=== PATIENT | female | born 1985 | race Caucasian/White ===

== ENCOUNTER 2020-10-11 10:46 | Emergency (ER) | payer SELFPAY ==
[2020-10-11 10:47] VITALS: BP 165/96; PULSE 104; RESP 18; TEMP 36.7; O2SAT 99; BMI 22.8
--- NOTE | 2020-10-11 10:54 | HMH.EDGENADL ---
ED Disposition Clinical Impression: Acute bronchitis Qualifiers: Bronchitis organism: unspecified organism Qualified Code(s): J20.9 - Acute bronchitis, unspecified Disposition: Home, Self-Care Condition on Discharge: Good Instructions: DI for Acute Bronchitis Additional Instructions: Continue doxycycline as prescribed. Prednisone as prescribed. Tessalon Perles as needed for cough. Continue inhaler as needed. Follow-up with primary care provider if not improved in 4 to 5 days. Prescriptions: Doxycycline Monohydrate [Monodox] 100 mg PO BID #10 cap Prescription Printed predniSONE [Prednisone 20mg Tab] 20 mg PO BID #10 tab Prescription Printed Benzonatate [Tessalon Perle 100mg Cap] 100 mg PO TIDP PRN #20 cap PRN Reason: Cough Prescription Printed Referrals: Jorge Bailey [Primary Care Provider] - - Critical Care Critical Care Time: No Attestation: On , the high probability of a clinically significant, sudden or life threatening deterioration of the following system(s) required my full and direct attention, intervention and personal management. The time I documented below is in addition to time spent performing reported procedures but includes the following listed in this critical care notation. Medical Decision Making - Juan Miguel Inquiry Pt receiving controlled substance: No Vital Signs: 10/11/20 10:47 Temperature 98.0 F Temperature Source Oral Pulse Rate [Right] 104 H Respiratory Rate 18 Blood Pressure [Right Arm] 165/96 H Blood Pressure Mean [Right Arm] 119 02 Sat by Pulse Oximetry 99 - Lab Data Lab Results 10/11/20 11:13: WBC 6.9, RBC 5.12, Hgb 16.2, Hct 46.9, MCV 91.5, MCH 31.6 H, MCHC 34.5, RDW 13.5, Plt Count 226, MPV 8.1, Neut % (Auto) 66.9, Lymph % (Auto) 19.8, [place] % (Auto) 6.2, Eos % (Auto) 6.0, Baso % (Auto) 1.1, Neut # (Auto) 4.6, Lymph # (Auto) 1.4, [place] # (Auto) 0.4, Eos # (Auto) 0.4, Baso # (Auto) 0.1 10/11/20 11:13: Sodium 138, Potassium 3.9, Chloride 104, Carbon Dioxide 24, Anion Gap 13.9, BUN 9, Creatinine 0.60, Estimated Creat Clear 145, Estimated GFR 114, Est GFR ( Amer) 138, Glucose 110 H, Calcium 10.2, Total Bilirubin 0.4, AST 30, ALT 23, Alkaline Phosphatase 64, Total Protein 8.4 H, Albumin 5.3 H, Globulin 3.1, Albumin/Globulin Ratio 1.7 10/11/20 11:28: Lactate 1.0 Result diagrams: 10/11/20 11:13 10/11/20 11:13 Orders (Tests/Meds): ORDERS Category Date Time Status Blood Culture Stat Micro 10/11/20 11:28 Received - Radiology Data #1 Image(s): Chest Image Reviewed: Yes I reviewed the patient's radiology image Preliminary Findings: Normal/NAD - ECG Data Tracing #1 EKG interpreted by Vlad Sorenson MD: Rhythm: sinus Rate: 94 [place]: normal Ectopy: none Conduction: normal ST Segment Changes: none T Wave Changes: none Q Waves: none No evidence of acute ischemia or injury General Adult HPI - General Stated complaint: possible pneumonia Time Seen by Provider: 10/11/20 11:00 - History of Present Illness HPI narrative: Complains of difficulty breathing and cough. States that she gets pneumonia frequently. She now has cough producing green sputum, shortness of breath, states it feels like I am drowning when she lays down. Wheezing at night. Cough is worse at night. No fever. Slight rhinorrhea. No earache. No vomiting or diarrhea. She says that she had Covid a month ago and she has had trouble breathing ever since then. She says she has been checking her pulse ox and it is always good. She says she also has asthma and is on an inhaler. She was started on doxycycline 3 days ago, a 5-day prescription was given. She is a smoker. - Related Data Previous Rx's Medication Instructions Recorded Benzonatate [Tessalon Perle 100mg 100 mg PO TIDP PRN #20 cap 10/11/20 Cap] Doxycycline Monohydrate [Monodox] 100 mg PO BID #10 cap 10/11/20 predniSONE [Prednisone 20mg 20 mg PO BID #10 tab 10/11/20 Tab] Jakob
--- NOTE | 2020-10-11 10:55 | ECG_ITS ---
APPROVED REPORT Exam: Resting ECG HR:94 bpm ECG Measurements Heart Rate 94 AXES [place] 156 P 74 QRSd 90 QRS 64 QT 352 T 46 QTc 440 Conclusion Normal sinus rhythm Left atrial abnormality Borderline ECG Electronically signed by : Jerrod Anderson, 10/12/2020 07:32:54
--- NOTE | 2020-10-11 11:13 | XR_ITS ---
PROCEDURE INFORMATION: Exam: XR Chest Exam date and time: 10/11/2020 11:13 AM Age: 35 years old Clinical indication: Smoker's cough TECHNIQUE: Imaging protocol: XR of the chest. Views: 2 views. COMPARISON: No relevant prior studies available. FINDINGS: Lungs: Unremarkable. No consolidation. Pleural spaces: Unremarkable. No pleural effusion. No pneumothorax. Heart/Mediastinum: Unremarkable. No cardiomegaly. Bones/joints: Unremarkable. IMPRESSION: No acute findings.
--- NOTE | 2020-10-11 11:21 | PC.NURSE ---
Pt returned from rad
[2020-10-11 11:32] LABS: Chloride 104 mmol/L (98-107); Potassium 3.9 mmoL/L (3.5-5.1); Sodium 138 mmol/L (136-145)
[2020-10-11 11:35] LABS: Alanine Aminotransferase 23 U/L (12-78); Albumin Level 5.3 g/dl (3.5-5.0); Albumin/Globulin Ratio 1.7 (1.1-1.8); Alkaline Phosphatase 64 U/L (38-126); Anion Gap 13.9 mEq/L (5-15); Aspartate Amino Transferase 30 U/L (14-36); Basophils # 0.1 K/mm3 (0-0.2); Basophils % 1.1 % (0.1-2.0); Bilirubin,Total 0.4 mg/dl (0.2-1.3); Blood Urea Nitrogen 9 mg/dl (7-17); Carbon Dioxide 24 mmol/L (22.0-30.0); Creatinine Clearance Estimated 145 mL/min (50-200); Eosinophils # 0.4 K/mm3 (0.0-0.4); Estimated Glomerular Filt Rate 114 ml/min (>60); GFR (African American) 138 ML/MIN (>60); Globulin 3.1 g/dL (1.3-3.2); Hematocrit 46.9 % (37.0-47.0); Hemoglobin 16.2 g/dL (12.2-16.2); Lymphocytes # 1.4 K/mm3 (0.7-4.5); Lymphocytes % 19.8 % (10-50); Mean Corpuscular HGB Conc 34.5 g/dL (31.8-35.4); Mean Corpuscular Hemoglobin 31.6 pg (27.0-31.2); Mean Corpuscular Volume 91.5 fl (81-99); Mean Platelet Volume 8.1 fl (7.4-10.4); Monocytes # 0.4 K/mm3 (0.1-1.0); Monocytes % 6.2 % (1.7-9.3); Neutrophils # 4.6 K/mm3 (1.8-7.8); Neutrophils % 66.9 % (37.0-80.0); Platelet Count 226 K/mm3 (142-424); Red Blood Count 5.12 M/mm3 (4.20-5.40); Red Cell Distribution Width 13.5 % (11.5-17.5); Total Protein,Serum 8.4 g/dl (6.3-8.2); White Blood Count 6.9 K/mm3 (4.8-10.8)
[2020-10-11 11:36] LABS: Calcium 10.2 mg/dl (8.4-10.2); Glucose 110 mg/dl (74-100)
[2020-10-11 12:30] VITALS: BP 135/100; PULSE 85; RESP 18; TEMP 36.8; O2SAT 98
== END 2020-10-11 12:36 | disposition home or self-care (01) ==
PROVIDERS: Emergency Provider Emergency Medicine; PCP Family Medicine
DX: J20.9 Acute bronchitis, unspecified (principal); Z86.16 Personal history of COVID-19; F17.210 Nicotine dependence, cigarettes, uncomplicated
CPT/HCPCS: 71046; 80053; 83605; 85025; 87040; 93005; 99282

== ENCOUNTER 2025-03-17 11:05 | Emergency (ER) | payer OTHER, SELFPAY ==
[2025-03-17] VITALS (13 sets, daily range): BP systolic 91–131; BP diastolic 48–82; PULSE 53–64; RESP 15–18; TEMP 36.7–36.8; O2SAT 94–99; BMI 30.2
--- OUTSIDE RECORDS SUMMARY | 2025-03-17 11:16 | XMS_ITS | Encounter Summary ---
Author Organization [facility] Address [address] [id number] Care Team Providers Care Electric Shovel Operator Name Role Phone Provider, No Known Primary Care Provider Unavail able Reason for Visit * Reason Onset Date Comments Med Refill 03/11/2025 Encounter Details Date Type Department Care Team (Late st Contact Info) Description 03/11/2025 Refill [facility] [address] [place] [address] Luma Shin MA Med Refill Social History Tobacco Use Types Packs/Day Years Used Date Smoking Tobacco: Former Cigarettes 1 24 0 06/13/1997 - 2021 Passive Smoke Exposure: Past Smokeless Tobacco: Never Alcohol Use Standard Drinks/Week Comments Not Currently 0 (1 standard drink = 0.6 oz pur e alcohol) PHQ-2 Answer Date Recorded Patient Health Questionnaire-9 Score 21 07/19/2024 Comments Unknown Sex and Gender Information Value Date Recorded Sex Assigned at Female 11/28/2024 7:50 AM EDT Legal Sex Female 6:51 PM EST Gender Identity Not on file Sexual Orientation Not on file documented as of this encounter Plan of Treatment Not on file documented as of this encounter Visit Diagnoses Diagnosis Moderate asthma, unspecified whether complicated, unspecified whether persistent Vitamin D deficiency documented in this encounter Care Teams Electric Shovel Operator Relationship Specialty Start Date End Date Provider, [place] [address] PCP - General 08/03/24 documented as of this encounter
--- OUTSIDE RECORDS SUMMARY | 2025-03-17 11:16 | XMS_ITS | Clinical Summary ---
Author Organization [facility] Address [address] [place] [address] Care Team Providers Care Bureau Chief Name Role Phone Provider, No Known Primary Care Provider Unavail able Allergies Active Allergy Reactions Criticality Noted Date Comments Carbamazepine Itching 08/08/2023 Penicillin G Hives Medium 05/31/2017 Penicillins Other (See Comments) 07/16/2015 Couldn't breath Topiramate Rash Low 07/19/2024 Medications * This document contains information received from the source organization and may not represent a complete record from that organization. phenazopyridine (Pyridium) 100 MG tablet Take 1 tablet by mouth 3 (Three) Times a Day As Needed for Bladder Spasms. 10 tablet 4 9:51 AM EST 06/20/19 24 Active SUMAtriptan (IMITREX) 100 MG tablet 1 tab po daily prn HO. can take 2 hrs later as needed for HO Active albuterol (PROVENTIL) (2.5 MG/3ML) 0.083% nebulizer solution Inhale 2.5 mg (1 vial) by nebulization as directed every 4 hours as needed for Wheezing. 90 mL 11 09/18/19 25 Active aspirin 81 MG EC tablet Take 1 tablet by mouth Daily. 90 tablet 3 09/18/19 25 Active budesonide-formote rol (SYMBICORT) 160-4.5 MCG/ACT inhalerIndications :Moderate asthma, unspecified whether complicated, unspecified whether persistent Inhale 2 puffs by mouth 2 Times a Day. 10.2 g 12 09/18/19 25 Active furosemide (LASIX) 20 MG tablet Take 1 tablet by mouth Daily. 30 tablet 5 09/18/19 25 Active Additional Information Patient taking differently:20 mg OralDaily PRN, swelling, Informant: Self, Reported on 12/21/2024 ondansetron ODT (ZOFRAN-ODT) [address] 1 tablet on the tongue Every 8 (Eight) Hours As Needed for Nausea or Vomiting. 30 tablet 2 09/18/19 25 Active prochlorperazine (COMPAZINE) 5 MG tabletIndications: Nausea Take 1 tablet by mouth Every 6 (Six) Hours As Needed for Nausea or Vomiting. 60 tablet 11 09/18/19 25 Active Tirzepatide-Weight Management (Zepbound) 2.5 MG/0.5ML solutionIndication s:Chest pain, atypical,Family history of premature CAD,Obstructive sleep apnea,Class 1 obesity with alveolar hypoventilation and body mass index (BMI) of 32.0 to 32.9 in adult, unspecified whether serious comorbidity present,Hyperlipid emia LDL goal <70 Inject 0.5 mL under the skin into the appropriate area as directed 1 (One) Time Per Week. For LAXMI 2 mL 3 09/21/19 25 Active lamoTRIgine (LaMICtal) 100 MG tabletIndications: Bipolar I disorder, most recent episode depressed Take 1 tablet by mouth Daily. 90 tablet 1 12/22/19 25 Active fenofibrate (TRICOR) 48 MG tabletIndications: Hyperlipidemia LDL goal <70 Take 1 tablet by mouth Daily. 90 tablet 3 12/22/19 25 Active amLODIPine (NORVASC) 5 MG tabletIndications: Hypertension, essential Take 1 tablet by mouth 2 (Two) Times a Day. 180 tablet 3 01/15/20 25 Active meclizine (ANTIVERT) 25 MG tablet Take 1 tablet by mouth 3 (Three) Times a Day. 270 tablet 3 01/15/20 25 Active omeprazole (priLOSEC) 20 MG capsule Take 1 capsule by mouth 2 (Two) Times a Day. 180 capsule 3 01/15/20 25 Active propranolol (INDERAL) 40 MG tablet Take 1 tablet by mouth 2 (Two) Times a Day. 180 tablet 3 01/15/20 25 Active vitamin D (ERGOCALCIFEROL) 1.25 MG (70059 UT) capsule capsule Take 1 capsule by mouth 1 (One) Time Per Week. 12 capsule 4 01/15/20 25 Active desvenlafaxine (PRISTIQ) 50 MG 24 hr tabletIndications: Bipolar I disorder, most recent episode depressed,Generali zed anxiety disorder Take 1 tablet by mouth Daily. 30 tablet 1 02/16/20 25 Active lisdexamfetamine (VYVANSE) 30 MG capsuleIndications :ADHD (attention deficit hyperactivity disorder), combined type Take 1 capsule by mouth Every Morning 30 capsule 02/16/20 25 Active fexofenadine (REINA) 180 MG tabletIndications: Moderate asthma, unspecified whether complicated, unspecified whether persistent Take 1 tablet by mouth Daily. 90 tablet 3 03/11/20 25 Active Cholecalciferol (Vitamin D3) 50 MCG (1999) capsuleIndications :Vitamin D deficiency Take 1 capsule by mouth Daily. 90 capsule 3 03/11/20 25 Active Cholecalciferol (Vitamin D3) 50 MCG (1999) capsuleIndications :Vitamin D deficiency Take 1 capsule by mouth Daily. 90 capsule 3 01/15/20 25 025 Discontin ued(Reord er) fexofenadine (REINA) 180 MG tabletIndications: Moderate asthma, unspecified whether complicated, unspecified whether persistent Take 1 tablet by mouth Daily. 90 tablet 3 01/15/20 25 025 Discontin ued(Reord er) Active Problems Problem Noted Date Diagnosed Date ADHD (attention deficit hype ractivity disorder), combined type 01/18/2025 Family history of premature CAD 09/11/2024 Obstructive sleep apnea 09/11/2024 Assessment & Plan (09/11/2024 3:59 PM EDT): She recently completed a home sleep study on 09/02/2024 that revealed mild- moderate LAXMI. Overall AHI is 12.1. The AHI increased to 19 and REM sleep, which is moderate LAXMI. PAP therapy was initiated and she is currently waiting to receive her CPAP device. - Start PAP therapy as soon as possible - Trial of Zepbound to assist with weight loss - Follow-up in 2 months for an LAXMI compliance visit Class 1 obesity with alveola r hypoventilation and body mass index (BMI) of 32.0 to 32.9 in adult 09/11/2024 Assessment & Plan (09/11/2024 3:58 PM EDT): Weight loss efforts. Trial of Zepbound to assist with weight loss, also newly diagnosed with LAXMI. Chest pain, atypical 07/27/2024 Assessment & Plan (09/11/2024 4:01 PM EDT): She reports intermittent episodes of left-sided chest pain and worsening shortness of breath on exertion. She has multiple cardiac risk factors, including hypertension, hyperlipidemia, obesity and LAXMI. She also has a family history of premature CAD in her father, grandfather and uncles, who overall diagnosed with CAD in their 40s/50s. - Coronary CTA for further evaluation and management Assessment & Plan (07/27/2024 10:23 AM EST): Patient reports the other nights she had really bad chest heaviness and pain. Patient states that she was at rest and this woke her up. Patient reports that she has this chest pain and heaviness at least 2-3 times a week. She reports that this may be related to her anxiety. Plan treadmill stress test to rule out possible ischemia. Hyperlipidemia LDL goal <70 07/27/2024 Assessment & Plan (12/21/2024 11:35 AM EDT): She has tried multiple cholesterol-lowering medications, including gemfibrozil, Zetia, Crestor, atorvastatin and pravastatin. Caused her to have a rash. She is willing to try fenofibrate for her triglycerides. Assessment & Plan (09/11/2024 3:56 PM EDT): She has tried multiple cholesterol-lowering medications, including gemfibrozil, Zetia, Crestor, atorvastatin and pravastatin. All of those medications caused significant leg cramping and she was unable to tolerate them. Lipid panel from 07/25/2024 revealed a total cholesterol of 150, triglycerides 277, HDL 28 and LDL 77. She has been making diet changes and working on weight loss to assist with lowering her triglycerides levels. We have discussed Repatha and she is agreeable but wants to try weight loss first. -Recheck lipid panel in 3 months Assessment & Plan (07/27/2024 11:22 AM EST): Patient has been on rosuvastatin and atorvastatin in the past. Patient reported severe myalgias with these medications. Patient's triglycerides continue to be high. We have reviewed dietary modifications. Weight loss advised. Increase aerobic exercise. We will try to see if we can get Nexletol approved. Plan Zetia 10mg daily and omega-3 fatty acids 1000 mg twice a day. Hypersomnia 07/27/2024 Assessment & Plan (07/27/2024 10:27 AM EST): Patient has an [place] sleepiness scale of 9. Neck size 14 inches. Patient reports that she has issues with her sleep. She states that she is on Seroquel to help with her sleep. She states that her sleep is never rested. She reports frequent awakenings. Patient reports excessive daytime sleepiness and fatigue. She states that her tells her she snores. Plan HST for further evaluation of sleep apnea Generalized anxiety disorder 07/19/2024 Bipolar I disorder, most recent episode depresse d 07/19/2024 Moderate asthma 08/08/2023 Assessment & Plan (08/08/2023 9:21 AM EST): Asthma is worsening. The patient is experiencing frequent daytime asthma symptoms Plan: Begin taking the following medication/s; Symbicort. Discussed distinction between quick-relief and maintenance control medications. Smoking cessation discussed: Information shared with patient. Patient Treatment Goals: symptom prevention, minimizing limitation in activity, prevention of exacerbations and use of ER/inpatient care, maintenance of optimal pulmonary function, and minimization of adverse effects of treatment. Followup in 4 weeks. -Start Symbicort inhaler daily. - Highly encouraged smoking/vaping cessation Dizziness 08/08/2023 Assessment & Plan (08/08/2023 9:21 AM EST): Most likely due to acute GI viral illness and dehydration. She also has a history of vertigo. - Increase water intake and decrease caffeine intake. Shortness of breath 08/31/2022 Assessment & Plan (09/11/2024 3:59 PM EDT): Proceed with coronary CTA. Echocardiogram was unremarkable Assessment & Plan (07/27/2024 10:18 AM EST): Patient reports shortness of air on exertion. She states she can not walk up a flight of stairs without feeling like she can not catch her breath. She states this may be related to her deconditioning and weight gain. She also vapes nicotine. Plan ECHO to evaluate worsening heart function or valvular abnormalities. Assessment & Plan (08/31/2022 12:50 PM EDT): Likely smoking related. Check echo Abnormal electrocardiogram 08/31/2022 Assessment & Plan (09/11/2024 3:56 PM EDT): EKG shows possible anterior infarct. Assessment & Plan (07/27/2024 10:20 AM EST): Today EKG showed possible anterior myocardial infarction probably old. Q waves seen in V3 and V4. Assessment & Plan (08/31/2022 12:51 PM EDT): Mild intraventricular conduction delay. Check echo Hypertension, essential 08/31/2022 Assessment & Plan (12/21/2024 11:34 AM EDT): Hypertension is stable and controlled Continue current treatment regimen. Blood pressure will be reassessed in 6 months. Patient to continue her amlodipine and propranolol. Assessment & Plan (09/11/2024 3:57 PM EDT): Hypertension is borderline. BP is elevated today Medication changes per orders. Dietary sodium restriction. Weight loss. Regular aerobic exercise. Ambulatory blood pressure monitoring. Blood pressure will be reassessedin 4 weeks. -Continue weight loss efforts - Continue current medications - Monitor blood pressure closely at home Assessment & Plan (07/27/2024 10:21 AM EST): Blood pressure has been well-controlled. Patient to continue current medication regimen amlodipine and propranolol. Sodium restriction. Weight loss. Increase aerobic exercise. Smoking cessation strongly advised. Monitor home blood pressures. Assessment & Plan (08/08/2023 9:13 AM EST): Hypertension is stable and controlled Continue current treatment regimen. Dietary sodium restriction. Weight loss. Regular aerobic exercise. Stop smoking. Ambulatory blood pressure monitoring. Blood pressure will be reassessed in 1 month. - Recent elevated blood pressure readings in the last week, most likely due to acute viral illness. - Monitor blood pressure daily and keep a log of readings. We will review at follow-up visit and adjust medication accordingly. Assessment & Plan (08/31/2022 12:50 PM EDT): Has tried multiple beta-blockers. Worried about low heart rates. We will switch over to amlodipine. Overweight (BMI 25.0-29.9) 08/31/2022 Assessment & Plan (08/31/2022 1:02 PM EDT): Patient's (Body mass index is 29.24 kg/m .) indicates that they are overweight with health conditions that include obstructive sleep apnea and hypertension . Weight is newly identified. BMI is is above average; BMI management plan is completed. We discussed pharmacologic options including wegovy. Encounters * This document contains information received from the source organization and may not represent a complete record from that organization. Date Type Department Care Team Description 03/11/2025 Refill [facility] [address] [phone] Luma Shin MA Med Refill 01/14/2025 Refill [facility] [address] [phone] Tanya Argueta APRN Med Refill 12/21/2024 11:45 AM EDT Clinical Support [facility] [address] [place] [address] [address] [phone] Bipolar I disorder, most recent episode depressed (Primary Dx); Generalized anxiety disorder 12/21/2024 10:00 AM EDT Office Visit [facility] [address] [phone] Sarah Swanson APRN Hypertension, essential (Primary Dx); Hyperlipidemia LDL goal <70; Family history of premature CAD 12/21/2024 Travel from Last 3 Months Immunizations Immunization Administration Dates Next Due Fluzone >6mos 03/19/2024 Fluzone (or Fluarix & Flulaval for VFC) >6mos Family History Medical History Relation Name Comments Heart disease Father Hyperlipidemia Father Diabetes Mother Multiple sclerosis Mother Sleep apnea Mother Relation Name Status Comments Brother 1 Alive Brother 2 Alive Father Alive Mother Alive Social History Tobacco Use Types Packs/Day Years Used Date Smoking Tobacco: Former Cigarettes 1 24 0 06/13/1997 - 2021 Passive Smoke Exposure: Past Smokeless Tobacco: Never Tobacco Cessation:Counseling Given: Not Answered Alcohol Use Standard Drinks/Week Comments Not Currently 0 (1 standard drink = 0.6 oz pur e alcohol) PHQ-2 Answer Date Recorded Patient Health Questionnaire-9 Score 21 07/19/2024 Comments Unknown Sex and Gender Information Value Date Recorded Sex Assigned at Female 11/28/2024 7:50 AM EDT Legal Sex Female 6:51 PM EST Gender Identity Not on file Sexual Orientation Not on file Last Filed Vital Signs Vital Sign Reading Time Taken Comments Blood Pressure 120/70 12/21/2024 10:03 AM EDT Pulse 78 12/21/2024 10:03 AM EDT Temperature 36.7 C (98.1 F) 10/22/2024 9:32 AM EDT Respiratory Rate 14 10/22/2024 9:32 AM EDT Oxygen Saturation 98% 12/21/2024 10: 03 AM EDT Inhaled Oxygen Concentration - - Weight 91.6 kg (201 lb 15.1 oz) 10/22/2024 9:32 AM EDT Height 175.3 cm (5' 9 ) 10/22/2024 9:32 AM EDT Body Mass Index 29.82 10/22/2024 9:32 AM EDT Plan of Treatment Health Maintenance Due Date Last Done Comments Annual Gynecologic Pelvic an d Breast Exam 1985 Pneumococcal Vaccine 0-49 (1 of 2 - PCV) 2004 TDAP/TD VACCINES (1 - Tdap) 2004 PAP SMEAR 2006 ANNUAL PHYSICAL 08/06/2022 HEPATITIS C SCREENING 08/06/2022 INFLUENZA VACCINE 01/11/2025 03/19/2024, 03/17/2023 LIPID PANEL 07/25/2025 07/25/2024, 06/0 09/2023, 04/25/2023 Procedures Procedure Name Priority Date/Time Associated Diagnosis Comments URINE DRUG SCREEN Routine 12/21/2024 3:1 9 PM EDT ADHD (attention deficit hyperactivity disorder), combined type LIPID PANEL Routine 07/25/2024 8:17 AM EST Hypertension, essential Mixed hyperlipidemia Encounter for routine laboratory testing from Last 3 Months or Most Recently Relevant to Health Maintenance Results * Urine Drug Screen - Urine, Clean Catch (12/21/2024 3:19 PM EDT) Amphetamine, Urine Qual Negative Cutoff=10 00 ng/mL [facility] Barbiturates Screen, Urine Negative Cutoff=20 0 ng/mL [facility] Benzodiazepine Screen, Urine Negative Cutoff=20 0 ng/mL [facility] THC Screen, Urine Negative Cutoff=20 ng/mL [facility] Cocaine Screen, Urine Negative Cutoff=30 0 ng/mL [facility] Opiate Screen, Urine Negative Cutoff=30 0 ng/mL [facility] Comment:Opiate test includes Codeine, Morphine, Hydromorphone, Hydrocodone. Oxycodone/Oxymorph one, Urine Negative Cutoff=10 0 ng/mL [facility] Comment:Test includes Oxycod one and Oxymorphone Phencyclidine (PCP), Urine Negative Cutoff=25 ng/mL [facility] Methadone Screen, Urine Negative Cutoff=30 0 ng/mL [facility] Propoxyphene Screen Negative Cutoff=30 0 ng/mL [facility] Creatinine, Urine 51.4 20.0 - 300.0 mg/dL [facility] pH, UA 5.8 4.5 - 8.9 [facility] Please note Comment [facility] Comment: This assay provides a preliminary unconfirmed analytical test result that may be suitable for clinical management of patients in certain situations. Drug-test results should be interpreted in the context of clinical information. Patient metabolic variables, specific drug chemistry, and specimen characteristics can affect test outcome. Technical consultation is available if a test result is inconsistent with an expected outcome. Email: [email or web address] Urine Urine specimen obtained by clean catch procedure / Unknown 12/21/2024 3:19 PM EDT 12/21/2024 Comment:Urine Release to [facility] (AMBULATORY) - 12/22/2024 9:06 PM EDT Performed at: - [facility] [address] [facility], [place], [place] [id number] Line Server: Mateo Hernandez PhD, Phone: [phone] Kemal Faith [employer] URINE ORDERABLES Final Result Performing Organization Address City/[facility]/ZIP Co de Phone Number [facility] (AMBULATORY) [address] [place] [address], [facility] [address] [place] [phone], * (ABNORMAL) Lipid Panel (07/25/2024 8:17 AM EST) Pathologist [facility] Total Cholesterol 150 100 - 199 mg/dL [facility] Triglycerides 277(H) 0 - 149 mg/dL [facility] HDL Cholesterol 28(L) >39 mg/dL [facility] VLDL Cholesterol Kain 45(H) 5 - 40 mg/dL [facility] LDL Chol Calc (NIH) 77 0 - 99 mg/dL [facility] Blood Structure of right upper limb / Unknown 07/25/2024 8:17 AM EST 07/26/2024 Comment:Blood Release to [facility] (AMBULATORY) - 07/26/2024 8:07 AM EST Performed at: - [facility] [address] [id number] Line Server: Dallas George PhD, Phone: [phone] Tanya Argueta APRN LAB BLOOD ORDERABLES Fin al Result Performing Organization Address City/[facility]/ZIP Co de Phone Number [facility] (AMBULATORY) [address] [place] [address], [place] [phone] [facility] [address] [place] [id number], [place] [phone] from Last 3 Months or Most Recently Relevant to Health Maintenance [place] [phone] Care Teams Bureau Chief Relationship Specialty Start Date End Date Provider, [place] [address] PCP - General 08/03/24
--- OUTSIDE RECORDS SUMMARY | 2025-03-17 11:16 | XMS_ITS | Data Portability ---
Author Organization [facility] Address [address] [place] [address] Assessment Encounter Date Assessment Date Assessment LastModified by Organization Details LastModified Time 04/24/2021 04/24/2021 incr gabap to 400 tid. for trigem neuralgia. mom with ms. no other neuro sx's. declining mri for insurance reasons. thy ca? thinks this is an error. decl thy u/s. biochemical markers normal. was on synthroid at one time before. asthma controlled. moods now controolled. declines vaccines. Not available 04/24/2021 09:25:31 06/26/2021 06/26/2021 tregy sample and sent here for 340 b savings for asthma. not ready to quit smoking. has gabap still. help trgim neuralgia. with vertigo -getting better- meclizine and some diplopia- reluctant but will try proscan mri as told cheaper. mri ordered. to ER if sx's worse. mom with MS. decl immunizations. close f/u. on bb now for htn - at cards office-to bring in ekg from there for me next visit. cn exam and ear exam normal. has eye doctor. Not available 06/26/2021 10:22:21 09/11/2021 09/11/2021 neuro largely nl. labs largely ok some mos ago. to get mri soon. f/u afterwards of brain. meclizine prn. told if worse neuro sx's- to ER. she understands. incr seroquel both for moods and sleep. taking prn gabap for trigem neuralgia. mom with MS. imitrex helps migraines- no complex migraines from history. has enough trelegy. has enourgh gabap. work note provided. Not available 09/11/2021 09:27:19 Plan of Treatment Reminders Order Date Submit Date Provider Last Modified By Organization Details Last Modified Time Details Appointments None recorded. 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 Procedures None recorded. Surgeries None recorded. Imaging MRI, brain, w/wo contrast - trigem neuralgia, diplopia, fam hx of MS, and new vertigo 2021 [facility]22 [facility], [address], [place], [address], 2 09:43:27 Medication Orders meclizine 25 mg tablet 2021 022 [facility], [address] [place] [address], [id number], 2 09:22:50 ProAir HFA 90 mcg/actuati on aerosol inhaler 2021 022 [facility], [address] [place] [address], [id number], 2 09:22:52 Imitrex 100 mg tablet 2021 022 [facility], [address] [place] [address], [place], [id number], 2 09:20:41 Seroquel 50 mg tablet 2021 022 [facility], [address] [place] [address], [place], [id number], 3 15:45:57 duloxetine 60 mg capsule,del ayed release 2021 022 [facility], [address] [place] [address] [place], [id number], 3 15:43:50 metoprolol succinate ER 25 mg tablet,exte nded release 24 hr 2021 022 [facility], [address] [place] [address] [place], [place], [id number], 3 15:44:49 Trelegy Ellipta 100 mcg-62.5 mcg-25 mcg powder for inhalation 2021 [facility], [address] [place] [address], [address], 3 15:46:31 meclizine 25 mg tablet 2021 022 [email or web address] [facility], [address] [place] [address] [place], [place], [id number], 2 11:05:24 ProAir HFA 90 mcg/actuati on aerosol inhaler 2020 021 [place] [facility], [address] [place] [address] [place], [id number], 1 09:19:46 Trelegy Ellipta 100 mcg-62.5 mcg-25 mcg powder for inhalation 2020 021 [facility], [address], [place], [id number], 3 15:46:31 gabapentin 400 mg capsule 2020 021 [facility], [facility] [address], [place], [id number], 3 15:44:12 duloxetine 60 mg capsule,del ayed release 2020 021 [facility], [facility] [address], [id number], 3 15:43:23 Seroquel 25 mg tablet 2020 021 [facility], [address] [place], [place] [address], [id number], 2 09:19:57 Patient TargetsNo targets recorded. Patient Instructions Encounter Date Encounter Id Patient Instructions Last Modified By Organization Details Last Modified Time 06/26/2021 [id number] smoking cessatio n counseling, greater than 3 minutes up to 10 minutes* Not available 06/26/2021 10:13:15 Reason for Referral None Reported. Results Created Date Observation Date Name Description Value Unit Range Abnormal Flag Note LastModifiedBy Organization Detail LastModifiedTime 03/27/2003/28/2021 TSH+F REE T4 TSH 1.020 uIU/m L 0.450- 4.500 Not Available [facility] ([facility]) [address] [place], [address], 03/28/2021 06:37:03 03/27/2003/28/2021 TSH+F REE T4 T4,free(dire ct) 1.29 NG/dL 0.82-1 .77 Not Available [facility] ([facility]) [address] [facility], [place], [address], 03/28/2021 06:37:03 03/27/2003/28/2021 CBC WITH DIFFE RENTI AL/PL ATELE T WBC 7.1 x10e3 /uL 3.4-10 .8 Not Available [facility] ([facility]) [address] [facility], [place], [address], 03/28/2021 06:37:04 03/27/2003/28/2021 CBC WITH DIFFE RENTI AL/PL ATELE T RBC 4.97 x10e6 /uL 3.77-5 .28 Not Available [facility] ([facility]) [address] [place], [address], 03/28/2021 06:37:04 03/27/2003/28/2021 CBC WITH DIFFE RENTI AL/PL ATELE T hemoglobin 16.0 g/dL 11.1-1 5.9 above high normal Not Available [facility] ([facility]) [address] [place], [address], 03/28/2021 06:37:04 03/27/2003/28/2021 CBC WITH DIFFE RENTI AL/PL ATELE T hematocrit 48.5 % 34.0-4 6.6 above high normal Not Available [facility] ([facility]) [address] [place], [address], 03/28/2021 06:37:04 03/27/2003/28/2021 CBC WITH DIFFE RENTI AL/PL ATELE T MCV 98 fL 79-97 above high normal Not Available [facility] ([facility]) [address] [place], [address], 03/28/2021 06:37:04 03/27/2003/28/2021 CBC WITH DIFFE RENTI AL/PL ATELE T MCH 32.2 pg 26.6-3 3.0 Not Available [facility] ([facility]) [address] [facility], [place], [address], 03/28/2021 06:37:04 03/27/2003/28/2021 CBC WITH DIFFE RENTI AL/PL ATELE T MCHC 33.0 g/dL 31.5-3 5.7 Not Available [facility] ([facility]) [address] [facility], [place], [address], 03/28/2021 06:37:04 03/27/2003/28/2021 CBC WITH DIFFE RENTI AL/PL ATELE T RDW 12.0 % 11.7-1 5.4 Not Available [facility] ([facility]) [address] [facility], [place], [address], 03/28/2021 06:37:04 03/27/2003/28/2021 CBC WITH DIFFE RENTI AL/PL ATELE T platelets 238 x10e3 /uL 150-45 0 Not Available [facility] ([facility]) [address] [facility], [place], [address], 03/28/2021 06:37:04 03/27/2003/28/2021 CBC WITH DIFFE RENTI AL/PL ATELE T neutrophils 66 % not estab. Not Available [facility] ([facility]) [address] [facility], [place], [address], 03/28/2021 06:37:04 03/27/2003/28/2021 CBC WITH DIFFE RENTI AL/PL ATELE T lymphs 21 % not estab. Not Available [facility] ([facility]) [address] [facility], [place], [address], 03/28/2021 06:37:04 03/27/2003/28/2021 CBC WITH DIFFE RENTI AL/PL ATELE T monocytes 7 % not estab. Not Available [facility] ([facility]) [address] [facility], [place], [address], 03/28/2021 06:37:04 03/27/20 21 03/28/2021 CBC WITH DIFFE RENTI AL/PL ATELE T eos 5 % not estab. Not Available [facility] ([facility]) [address] [facility], [place], [address], 03/28/2021 06:37:04 03/27/2003/28/2021 CBC WITH DIFFE RENTI AL/PL ATELE T basos 1 % not estab. Not Available [facility] ([facility]) [address] [place], [address], 03/28/2021 06:37:04 03/27/2003/28/2021 CBC WITH DIFFE RENTI AL/PL ATELE T immature cells INTERNAL CONTROL SPECIALIST Not Available [facility] ([facility]) [address] [place], [address], 03/28/2021 06:37:04 03/27/2003/28/2021 CBC WITH DIFFE RENTI AL/PL ATELE T neutrophils (absolute) 4.7 x10e3 /uL 1.4-7. 0 Not Available [facility] ([facility]) [address] [place], [address], 03/28/2021 06:37:04 03/27/2003/28/2021 CBC WITH DIFFE RENTI AL/PL ATELE T lymphs (absolute) 1.5 x10e3 /uL 0.7-3. 1 Not Available [facility] ([facility]) [address] [place], [address], 03/28/2021 06:37:04 03/27/2003/28/2021 CBC WITH DIFFE RENTI AL/PL ATELE T monocytes(ab solute) 0.5 x10e3 /uL 0.1-0. 9 Not Available [facility] ([facility]) [address] [place], [address], 03/28/2021 06:37:04 03/27/20 21 03/28/2021 CBC WITH DIFFE RENTI AL/PL ATELE T eos (absolute) 0.3 x10e3 /uL 0.0-0. 4 Not Available [facility] ([facility]) [address] [facility], [place], [address], 03/28/2021 06:37:04 03/27/2003/28/2021 CBC WITH DIFFE RENTI AL/PL ATELE T baso (absolute) 0.1 x10e3 /uL 0.0-0. 2 Not Available [facility] ([facility]) [address] [facility], [place], [address], 03/28/2021 06:37:04 03/27/2003/28/2021 CBC WITH DIFFE RENTI AL/PL ATELE T immature granulocytes 0 % not estab. Not Available [facility] ([facility]) [address] [facility], [place], [address], 03/28/2021 06:37:04 03/27/2003/28/2021 CBC WITH DIFFE RENTI AL/PL ATELE T immature grans (abs) 0.0 x10e3 /uL 0.0-0. 1 Not Available [facility] ([facility]) [address] [facility], [place], [address], 03/28/2021 06:37:04 03/27/2003/28/2021 CBC WITH DIFFE RENTI AL/PL ATELE T NRBC INTERNAL CONTROL SPECIALIST Not Available [facility] ([facility]) [address] [facility], [place], [address], 03/28/2021 06:37:04 03/27/2003/28/2021 CBC WITH DIFFE RENTI AL/PL ATELE T hematology comments: INTERNAL CONTROL SPECIALIST Not Available [facility] ([facility]) [address] [facility], [place], [address], 03/28/2021 06:37:04 03/27/20 21 03/28/2021 COMP. METAB OLIC PANEL (14) glucose 55 mg/dL 65-99 below low normal Not Available [facility] ([facility]) [address] [place], [address], 03/28/2021 06:37:05 03/27/20 21 03/28/2021 COMP. METAB OLIC PANEL (14) BUN 8 mg/dL 6-20 Not Available [facility] ([facility]) [address] [place], [address], 03/28/2021 06:37:05 03/27/2003/28/2021 COMP. METAB OLIC PANEL (14) creatinine 0.54 mg/dL 0.57-1 .00 below low normal Not Available [facility] ([facility]) [address] [place], [address], 03/28/2021 06:37:05 03/27/20 21 03/28/2021 COMP. METAB OLIC PANEL (14) eGFR if nonafricn AM 123 mL/mi n/1.7 3 >59 Not Available [facility] ([facility]) [address] [place], [address], 03/28/2021 06:37:05 03/27/20 21 03/28/2021 COMP. METAB OLIC PANEL (14) eGFR if africn AM 141 mL/mi n/1.7 3 >59 In accor dance with recom menda tions from the NKF-A SN Task force , [facility] is in the proce ss of updat ing its eGFR calcu latio n to the 2020 CKD-E PI creat inine equat ion that estim ates kidne y funct ion witho ut a race varia ble. Not Available [facility] ([facility]) [address] [place], [address], 03/28/2021 06:37:05 03/27/20 21 03/28/2021 COMP. METAB OLIC PANEL (14) BUN/creatini ne ratio 15 9-23 Not Available [facility] ([facility]) [address] [place], [address], 03/28/2021 06:37:05 03/27/2003/28/2021 COMP. METAB OLIC PANEL (14) sodium 143 mmol/ L 134-14 4 Not Available [facility] ([facility]) [address] [place], [address], 03/28/2021 06:37:05 03/27/2003/28/2021 COMP. METAB OLIC PANEL (14) potassium 4.6 mmol/ L 3.5-5. 2 Not Available [facility] ([facility]) [address] [place], [address], 03/28/2021 06:37:05 03/27/2003/28/2021 COMP. METAB OLIC PANEL (14) chloride 105 mmol/ L 96-106 Not Available [facility] ([facility]) [address] [place], [address], 03/28/2021 06:37:05 03/27/2003/28/2021 COMP. METAB OLIC PANEL (14) carbon dioxide, total 15 mmol/ L 20-29 below low normal Speci men quant ity insuf ficie nt for verif icati on by repea t kathe sis. Not Available [facility] ([facility]) [address] [place], [address], 03/28/2021 06:37:05 03/27/2003/28/2021 COMP. METAB OLIC PANEL (14) calcium 9.3 mg/dL 8.7-10 .2 Not Available [facility] ([facility]) [address] [place], [address], 03/28/2021 06:37:05 03/27/2003/28/2021 COMP. METAB OLIC PANEL (14) protein, total 7.2 g/dL 6.0-8. 5 Not Available [facility] ([facility]) [address] [place], [address], 03/28/2021 06:37:05 03/27/20 21 03/28/2021 COMP. METAB OLIC PANEL (14) albumin 4.5 g/dL 3.8-4. 8 Not Available [facility] ([facility]) [address] [place], [address], 03/28/2021 06:37:05 03/27/2003/28/2021 COMP. METAB OLIC PANEL (14) globulin, total 2.7 g/dL 1.5-4. 5 Not Available [facility] ([facility]) [address] [place], [address], 03/28/2021 06:37:05 03/27/20 21 03/28/2021 COMP. METAB OLIC PANEL (14) A/G ratio 1.7 1.2-2. 2 Not Available [facility] ([facility]) [address] [place], [address], 03/28/2021 06:37:05 03/27/2003/28/2021 COMP. METAB OLIC PANEL (14) bilirubin, total 0.3 mg/dL 0.0-1. 2 Not Available [facility] ([facility]) [address] [place], [address], 03/28/2021 06:37:05 03/27/2003/28/2021 COMP. METAB OLIC PANEL (14) alkaline phosphatase 66 IU/L 44-121 Ple ase note refer ence inter aguila nj e Not Available [facility] ([facility]) [address] [place], [address], 03/28/2021 06:37:05 03/27/2003/28/2021 COMP. METAB OLIC PANEL (14) AST (SGOT) 23 IU/L 0-40 Not Available [facility] ([facility]) [address] [place], [address], 03/28/2021 06:37:05 03/27/20 21 03/28/2021 COMP. METAB OLIC PANEL (14) ALT (SGPT) 13 IU/L 0-32 Not Available [facility] ([facility]) [address] [place], [address], 03/28/2021 06:37:05 03/27/20 21 03/28/2021 LIPID PANEL WITH LDL/H DL RATIO cholesterol, total 162 mg/dL 100-19 9 Not Available [facility] ([facility]) [address] [place], [address], 03/28/2021 06:37:05 03/27/20 21 03/28/2021 LIPID PANEL WITH LDL/H DL RATIO triglyceride s 186 mg/dL 0-149 above high normal Not Available [facility] ([facility]) [address] [place], [address], 03/28/2021 06:37:05 03/27/20 21 03/28/2021 LIPID PANEL WITH LDL/H DL RATIO HDL cholesterol 27 mg/dL >39 below low normal Not Available [facility] ([facility]) [address] [place], [address], 03/28/2021 06:37:05 03/27/20 21 03/28/2021 LIPID PANEL WITH LDL/H DL RATIO VLDL cholesterol boo 33 mg/dL 5-40 Not Available [facility] ([facility]) [address] [place], [address], 03/28/2021 06:37:05 03/27/20 21 03/28/2021 LIPID PANEL WITH LDL/H DL RATIO LDL chol calc ([facility]) 102 mg/dL 0-99 above high normal Not Available [facility] ([facility]) [address] [place], [address], 03/28/2021 06:37:05 03/27/2003/28/2021 LIPID PANEL WITH LDL/H DL RATIO comment: INTERNAL CONTROL SPECIALIST Not Available [facility] ([facility]) [address] [facility], [place], [address], 03/28/2021 06:37:05 03/27/2003/28/2021 LIPID PANEL WITH LDL/H DL RATIO LDL/HDL ratio 3.8 ratio 0.0-3. 2 above high normal LDL/H DL Ratio Men Women 1/2 Avg.R isk 1.0 1.5 Avg.R isk 3.6 3.2 2X Avg.R isk 6.2 5.0 3X Avg.R isk 8.0 6.1 Not Available [facility] ([facility]) [address] [place], [address], 03/28/2021 06:37:05 03/27/2003/28/2021 HEMOG LOBIN A1C hemoglobin A1C 5.0 % 4.8-5. 6 Predi abete s: 5.7 - 6.4 Diabe haim: >6.4 Glyce analia contr ol for adult s with diabe haim: <7.0 Not Available [facility] ([facility]) [address] [place], [address], 03/28/2021 06:37:06 12/18/1912/19/2022 SARS- COV-2 , RASHMI sars-cov-2, RASHMI Not Detect ed not detect ed This nucle ic acid ampli ficat ion test was devel oped and its perfo rmanc e david cteri stics deter mined by [facility]. Nucle ic acid ampli ficat ion tests inclu de RT-PC R and TMA. This test has not been FDA clear ed or appro sean. This test has been autho rized by FDA under an Emerg ency Use Autho rizat ion (EUA) . This test is only autho rized for the durat ion of time the decla ratio n that circu mstan asael exist justi fying the autho rizat ion of the emerg ency use of in vitro diagn ostic tests for detec tion of SARS- CoV-2 virus and/o r diagn osis of COVID -19 infec tion under secti on 564(b )(1) of the Act, 21 U.S.C . 360bb b-3(b ) (1), unles s the autho rizat ion is termi nated or revok ed soone r. When diagn ostic testi ng is negat vilma, the possi bilit y of a false negat vilma resul t shoul d be consi dered in the nuno xt of a patie nt's recen t expos ures and the prese nce of clini boo signs and sympt oms consi stent with COVID -19. An indiv idual witho ut sympt oms of COVID -19 and who is not chelsea ing SARS- CoV-2 virus would expec t to have a negat vilma (not detec radha) resul t in this assay . Not Available [facility] ([facility]) [address] [facility], [place], [address], 12/19/2022 18:06:17 12/18/19 23 12/18/2022 PLESAAD E NOTE please note Commen t The date and/o r time of colle ction was not indic ated on the requi sitio n as requi red by state and peg al law. The date of recei pt of the speci men was used as the colle ction date if not suppl ied. Not Available [facility] ([facility]) [address] [facility], [place], [address], 12/19/2022 18:06:18 07/17/1907/17/2024 GENES IGHT PSYCH OTROP IC, GENES IGHT MTHFR genesight psychotropic , genesight mthfr See PDF normal See PDF for compl ete resul ts. Inter preta tion of hank ic resul ts to guide clini boo decis ion inclu ded in the resul ting PDF. Not Available [facility] [address], [place], [address], 07/23/2024 17:11:16 Result Notes None recorded. Problems Name Problem SNOMED Code Status Onset Date Resolution Date Notes Provider Name and Address Organization Details Recorded Time Hyperthyro idism 64690583 Completed 201603/30/2017 Jorge Bailey MD [address], [place], [address], [place] [facility] 7 13:17:44 Anxiety 21230238 Active 2016 Nenita Cid null, [place] - [facility] 7 10:19:10 Depressive disorder 23767055 Active 2016 Jorge Bailey MD [address], [place], [address], [place] [facility] 7 13:17:14 Low back pain 440163447 Active 2016 Jorge Bailey MD [address], [place], [address], [place] [facility] 7 13:17:34 History of thyroid disorder 079800968 Active 2016 albertina - denies this Tolu Awad null, [place] - [facility] 1 09:21:17 Asthma 034702071 Active 2020 Rebecca Marsha null, [place] - [facility] 1 10:53:18 Trigeminal neuralgia 28526978 Active 2020 Farhan Nelson null, [place] - [facility] 1 20:11:40 Insomnia 064848272 Active 2020 Tolu Awad null, [place] [facility] 1 08:49:21 Vertigo 304226189 Active 2021 Tolu Awad [place] [facility] 2 10:22:46 Diplopia 24152849 Active 2021 Tolu Awad null, [place] [facility] 2 10:22:48 Problem Notes None recorded. Procedures Surgical History Date Name Laterality Status Provider Name and Address Organization Details Recorded Time 2 Date of Last Pap Smear completed Jennifer Robertson RN [address], [place], [address], [place] [facility] 06/26/2021 09:50:43 1 Systolic B/P less than 130 mm Hg completed Rebecca Marsha [place] [facility] 08/15/2020 16:41:43 1 Diastolic B/P less than 80 mm Hg completed Rebecca Marsha [place] [facility] 08/15/2020 16:41:45 1 Systolic B/P less than 130 mm Hg completed Rebecca Marsha [place] [facility] 08/01/2020 16:42:19 1 Diastolic B/P less than 80 mm Hg completed Rebecca Marsha [place] [facility] 08/01/2020 16:42:22 1 Systolic B/P less than 130 mm Hg completed Rebecca Marsha [place] [facility] 07/10/2020 10:57:42 1 Diastolic B/P 80-89 mm Hg completed Rebecca Marsha [place] [facility] 07/10/2020 10:57:48 9 Systolic B/P less than 130 mm Hg completed Rebecca Marsha [place] [facility] 04/09/2019 13:42:12 9 Diastolic B/P less than 80 mm Hg completed Rebecca Marsha [place] [facility] 04/09/2019 13:42:15 Imaging Results None recorded. Procedure Notes None recorded. Medical Equipment None Reported. Allergies Allergen ID Allergen Name Allergen Category Reaction Reaction Severity Criticality Documentation Date Start Date Code Code System Note Provider Name and Address Organization Details Recorded Time 593943 Wellbutri n medicatio n other Not available Not available 08/01/2020 04029 RxNorm night rowe Farhan [place], [place] - [facility] 17:41:46 859529 carbamaze pine medicatio n itching Not available Not available 08/15/20202001 RxNorm Farh[place]m [place] - [facility] 16:59:25 55739 Product containin g penicilli n (product) medicatio n respirato ry distress Not available Not available 03/19/20162015 05969 8001 SNOMED React ion: breat binu probl ems/s welli ng/hi ves; Not Available [facility] 6 08:53:22 Medications Name Sig Start Date Stop Date Status Note LastModified by Organization Details LastModified Time tirzepati de 10mg/ml injectabl e Inject 0.5mL (5mg=50 units) subcutan eously once weekly for four (4) weeks. 07/17 completed Not Available Not Available Not Available tirzepati de methylcob alamin 10mg 1mg/1ml injectabl e Inject 0.5mL (5mg=50 units) subcutan eously once weekly for four (4) weeks. 07/17 completed Not Available Not Available Not Available quetiapin e 25 mg tablet Take 1 tablet every day by oral route at bedtime. 09/11 completed Not Available Not Available Not Available prednison e 10 mg tablet Take 4 tablets daily for 3 days then reduce by 1/2 tablet daily until finished 12/17 completed Not Available Not Available Not Available doxycycli ne hyclate 100 mg capsule 07/17 completed Not Available Not Available Not Available azithromy brittnee 250 mg tablet TAKE 2 TABLETS (500 MG) BY ORAL ROUTE ONCE DAILY FOR 1 DAY THEN 1 TABLET (250 MG) BY ORAL ROUTE ONCE DAILY FOR 4 DAYS 07/10 completed Not Available Not Available Not Available chlorzoxa zone 500 mg tablet TAKE ONE TABLET BY MOUTH 3 TIMES A DAY GENERIC FOR PARAFON 05/19 completed Not Available Not Available Not Available sumatript an 100 mg tablet 1 tab po daily prn HO. can take 2 hrs later as needed for HO active Not Available Not Available No t Available prednison e 20 mg tablet 02/02 completed Not Available Not Available Not Available gabapenti n 400 mg capsule Take 1 capsule 3 times a day by oral route. 12/17 completed Not Available Not Available Not Available clindamyc in HCl 150 mg capsule 02/02 completed Not Available Not Available Not Available sumatript an 50 mg tablet Take one tablet by oral route at onset of migraine headache and rest for 30-60 minutes, may repeat dose x1 after 2 hours as needed for continue d headache pain. do not exceed two doses in 24hrs. 07/10 completed Not Available Not Available Not Available topiramat e 25 mg tablet Take one tablet by oral route qhs for 1 week, then take two tablets by oral route qhs for 3 weeks 04/09 completed Not Available Not Available Not Available meclizine 12.5 mg tablet Take 1 tablet twice a day by oral route. 07/10 completed Not Available Not Available Not Available fexofenad ine 180 mg tablet active Not Available Not Available No t Available amlodipin e 5 mg tablet Take 1 tablet every day by oral route for 90 days. 07/17 completed Not Available Not Available Not Available doxycycli ne monohydra te 100 mg tablet 12/17 completed Not Available Not Available Not Available tramadol 50 mg tablet take 1 tablet (50 mg) by oral route every 4 hours as needed for 30 days 07/16 completed tramadol 50 mg oral tablet;R ecorded Status: Recorded on: 12/13/19 14 2:22PM;D iscontin ued Status: Disconti nued on: 07/16/19 16 3:46PM;U ser: gored;Es t. Completi on: 02/11/20 14 Not Available Not Available Not Available chlorzoxa zone 250 mg tablet Take 1 tablet 3 times a day by oral route. 09/11 completed Not Available Not Available Not Available Depo-Medr ol 80 mg/mL suspensio n for injection Take 80 mg by injectio n route. 03/30 completed Not Available Not Available Not Available carbamaze pine 200 mg tablet Take 1 tablet every day by oral route at bedtime for 30 days. 08/15 completed Not Available Not Available Not Available propranol ol 10 mg tablet 12/17 completed Not Available Not Available Not Available propranol ol 40 mg tablet Take 1 tablet twice a day by oral route for 90 days. active Not Available Not Available No t Available citalopra m 20 mg tablet TAKE ONE TABLET BY MOUTH EVERY DAY GENERIC FOR CELEXA 07/10 completed Not Available Not Available Not Available meclizine 25 mg tablet Take 1 tablet 3 times a day by oral route as needed. active Not Available Not Available No t Available amlodipin e 10 mg tablet Take 1 tablet every day by oral route. active Not Available Not Available No t Available Cipro 500 mg tablet take 1 tablet (500 mg) by oral route 2 times per day for 10 days 01/29 completed Cipro 500 mg oral tablet;R ecorded Status: Recorded on: 08/04/19 16 9:42AM;D iscontin ued Status: Disconti nued on: 01/30/20 16 10:16AM; User: Enma Milleri on: 08/14/19 16;Print ed: 08/04/19 16 Not Available Not Available Not Available gabapenti n 300 mg capsule Take 1 capsule 3 times a day by oral route for 30 days. 06/26 completed Not Available Not Available Not Available omeprazol e 20 mg capsule,d elayed release Take 1 capsule twice a day by oral route for 90 days. active Not Available Not Available No t Available diclofena c sodium 75 mg tablet,de layed release TAKE ONE TABLET BY MOUTH 2 TIMES A DAY WITH FOOD 05/19 completed Not Available Not Available Not Available diclofena c sodium 50 mg tablet,de layed release Take 1 tablet twice a day by oral route. 08/01 completed Not Available Not Available Not Available furosemid e 20 mg tablet Take 1 tablet every day by oral route as needed for 90 days. active Not Available Not Available No t Available metoprolo l succinate ER 25 mg tablet,ex tended release 24 hr Take 1 tablet every day by oral route. 12/17 completed Not Available Not Available Not Available methylpre dnisolone 4 mg tablets in a dose pack take medicati on as prescrib ed in a tapering manner as directed 03/30 completed Not Available Not Available Not Available albuterol sulfate HFA 90 mcg/actua tion aerosol inhaler Inhale 2 puffs every 4 hours by inhalati on route as needed. active Not Available Not Available No t Available ketorolac 60 mg/2 mL intramusc ular solution Inject 2 mL by intramus cular route. 03/30 completed Not Available Not Available Not Available ciproflox acin 0.3 %-dexamet hasone 0.1 % ear drops,avi pension 07/17 completed Not Available Not Available Not Available Wellbutri n XL 150 mg 24 hr tablet, extended release Take 1 tablet every day by oral route for 30 days. 02/17 completed Not Available Not Available Not Available topiramat e 50 mg tablet Take by oral route for 30 days. 07/17 completed Not Available Not Available Not Available Prenate Elite 90 mg-1 mg-50 mg tablet 1 po qd with food 07/16 completed Prenate Elite 90-1-50 mg oral tablet;R ecorded Status: Recorded on: 03/16/20 08 10:02PM; Disconti nued Status: Disconti nued on: 07/16/19 16 3:46PM;U ser: [email or web address] Not Available Not Available Not Available duloxetin e 30 mg capsule,d elayed release Take 1 capsule every day by oral route. 04/24 completed Not Available Not Available Not Available duloxetin e 60 mg capsule,d elayed release Take 1 capsule twice a day by oral route. active Not Available Not Available No t Available Sure Comfort Insulin Syringe 0.5 mL 31 gauge x 10/26 USE DIRECTED active Not Available Not Available No t Available Repliva 21/7 151 mg-200 mg-1 mg tablet 1 po qd with food 07/16 completed Repliva 21/7 151-200- 1 mg oral tablet;R ecorded Status: Recorded on: 03/16/20 08 10:02PM; Disconti nued Status: Disconti nued on: 07/16/19 16 3:46PM;U ser: [email or web address] Not Available Not Available Not Available quetiapin e 50 mg tablet Take 1 tablet twice a day by oral route. active Not Available Not Available No t Available Symbicort 80 mcg-4.5 mcg/actua tion HFA aerosol inhaler Inhale 2 puffs twice a day by inhalati on route. 06/26 completed Not Available Not Available Not Available levocetir izine 5 mg tablet Take 1 tablet every day by oral route for 90 days. 07/17 completed Not Available Not Available Not Available nebivolol 10 mg tablet 12/17 completed Not Available Not Available Not Available Vitamin D3 50 mcg (2,000 unit) capsule active Not Available Not Available Not Available Chantix Continuin g Month Box 1 mg tablet Take as directed after completi on of starter box 04/09 completed Not Available Not Available Not Available Chantix Starting Month Box 0.5 mg (11)-1 mg (42) tablets in dose pack Take as directed 07/10 completed Not Available Not Available Not Available Trelegy Ellipta 100 mcg-62.5 mcg-25 mcg powder for inhalatio n INHALE ONE (1) PUFF EVERY DAY BY INHALATI ON ROUTE. 12/17 completed Not Available Not Available Not Available Wegovy 1 mg/0.5 mL subcutane ous pen injector 07/17 completed Not Available Not Available Not Available Wegovy 0.25 mg/0.5 mL subcutane ous pen injector 12/17 completed Not Available Not Available Not Available Wegovy 0.5 mg/0.5 mL subcutane ous pen injector 12/17 completed Not Available Not Available Not Available Breyna 160 mcg-4.5 mcg/actua tion HFA aerosol inhaler active Not Available Not Available Not Available Vitals Date Recorded Body height Body mass index (BMI) Body weight Heart rate Oxygen saturation Oxygen saturation in Arterial blood by Pulse oximetry Respiratory rate Systolic And Diastolic Provider Name and Address Organization Details Last Updated DateTime 2 177.8 cm 24.1 kg/m2 62871.5 2 g 76 /min 99 % 99 % 18 /min 118/86 mm[Hg] Jennifer Robertson RN [address], [place], [address], [place] - [facility] 2 09:57:13 Date Recorded Body weight Heart rate Oxygen saturation Oxygen saturation in Arterial blood by Pulse oximetry Respiratory rate Pain severity - 0-10 verbal numeric rating [Score] - Reported Systolic And Diastolic Provider Name and Address Organization Details Last Updated DateTime 5 44906.8 8 g 78 /min 98 % 98 % 18 /min 0 124/78 mm[Hg] Elayne Thorne [place] - [facility] 5 17:52:42 Date Recorded Body height Body mass index (BMI) Body weight Body temperature Heart rate Oxygen saturation Oxygen saturation in Arterial blood by Pulse oximetry Respiratory rate Pain severity - 0-10 verbal numeric rating [Score] - Reported Systolic And Diastolic Provider Name and Address Organization Details Last Updated DateTime 2 177.8 cm 23.5 kg/m2 28484.1 5 g 98.6 [degF] 74 /min 97 % 97 % 18 /min 0 118/76 mm[Hg] Joselin Thrasher [facility] 2 08:55:27 Date Recorded Body weight Body temperature Heart rate Oxygen saturation Oxygen saturation in Arterial blood by Pulse oximetry Respiratory rate Pain severity - 0-10 verbal numeric rating [Score] - Reported Systolic And Diastolic Provider Name and Address Organization Details Last Updated DateTime 3 82259.1 g 97.5 [degF] 82 /min 98 % 98 % 18 /min 0 118/78 mm[Hg] Elayne Thorne [place] - [facility] 3 15:42:11 Date Recorded Body height Body mass index (BMI) Body weight Body temperature Heart rate Oxygen saturation Oxygen saturation in Arterial blood by Pulse oximetry Respiratory rate Pain severity - 0-10 verbal numeric rating [Score] - Reported Systolic And Diastolic Provider Name and Address Organization Details Last Updated DateTime 1 177.8 cm 23.1 kg/m2 73479.3 7 g 98.4 [degF] 76 /min 98 % 98 % 18 /min 7 109/74 mm[Hg] Joselin Thrasher [facility] 1 09:04:36 Social History Question Answer Notes LastModified by Organizat ion Details LastModified Time Tobacco Smoking Status Current Every Day Smoker Melissa Yancy rose [place] - [facility] 02/02/2017 08:47:30 Able To Swim? Yes [email or web address] Information not available 04/24/2021 Do You Have An Advance Directive? No [email or web address] Information not available 02/17/2021 Do You Wear A Helmet When Biking? Yes [email or web address] Information not available 04/24/2021 Are You Blind Or Do You Have Difficulty Seeing? No [email or web address] Information not available 04/24/2021 What Is Your Level Of Caffeine Consumption? Occasional [email or web address] Information not available 02/02/2017 In The 14 Days Before Symptom Onset, Have You Had Close Contact With A Laboratory-confir med COVID-19 While That Case Was Ill? No [email or web address] Information not available 04/24/2021 In The 14 Days Before Symptom Onset, Have You Had Close Contact With A Person Who Is Under Investigation For COVID-19 While That Person Was Ill? No [email or web address] Information not available 04/24/2021 Have You Been To An Area Known To Be High Risk For COVID-19? No [email or web address] Information not available 04/24/2021 Are You Deaf Or Do You Have Serious Difficulty Hearing? No Information not available 02/02/2017 What Type Of Diet Are You Following? REGULAR Information not available 02/02/2017 Have You Processed Blood Or Body Fluids From An Ebola Virus Disease Patient Without Appropriate PPE? No [email or web address] Information not available 04/24/2021 Do You Reside In Or Have You Traveled To An Area Where Ebola Virus Transmission Is Active? No [email or web address] Information not available 04/24/2021 Swimming/diving Yes [email or web address] Informati on not available 04/24/2021 Have There Been Any Changes To Your Family Or Social Situation? No [email or web address] Information no t available 04/24/2021 What Is The Fluoride Status Of Your Home? Non-fluoridate d [email or web address] Information not available 04/24/2021 Hard Of Hearing Or Deaf In One Or Both Ears? No [email or web address] Information not available 04/24/2021 Have You Recently Or Are You Planning To Travel To An Area With Zika Virus? No [email or web address] Information not available 04/24/2021 Legally Blind In One Or Both Eyes? No [email or web address] Information no t available 04/24/2021 Live Alone Or With Others? With Others [email or web address] Information not available 04/24/2021 Do You Have A Medical Power Of Supervisor Treating And Pumping? No [email or web address] Information not available 04/24/2021 What Was The Date Of Your Most Recent Tobacco Screening? 07/17/2024 Information not available 07/17/2024 Seat Belts Used Routinely Yes [email or web address] Information not available 04/24/2021 Are You Sexually Active? Yes [email or web address] Information not available 04/24/2021 Smoke Alarm In Home Yes [email or web address] Information not available 04/24/2021 Do You Have Smoke And Carbon Monoxide Detectors In Your Home? Yes [email or web address] Information not available 02/17/2021 Are You Passively Exposed To Smoke? Yes [email or web address] Information no t available 02/17/2021 How Much Tobacco Do You Smoke? 0.5 PPD Information not available 12/17/2022 Do You Use Sunscreen Routinely? Yes Information not available 02/02/2017 Has Tobacco Cessation Counseling Been Provided? Yes [email or web address] Information not available 04/24/2021 On What Date Was Tobacco Cessation Counseling Provided? 07/17/2024 Information not available 07/17/2024 Do You Have Difficulty Walking Or Climbing Stairs? No [email or web address] Information not available 04/24/2021 Sex: Female Functional Status Question Answer Note LastModified by Organizat ion Details LastModified Time Do you use any illicit or recreational drugs? No [email or web address] Information not available 04/24/2021 What is your level of alcohol consumption? Occasional [email or web address] Information not available 02/02/2017 Are you currently employed? Yes [email or web address] Information not available 02/02/2017 Do you have transportation difficulties? No [email or web address] Information not available 04/24/2021 Are you able to walk independently without assistance or assistive devices? YESWOREST [email or web address] Information not available 04/24/2021 Do you have difficulty doing errands alone? No [email or web address] Information not available 04/24/2021 Are you able to care for yourself independently? Yes [email or web address] Information not available 02/02/2017 Do you have difficulty dressing, bathing, grooming, or toileting? No [email or web address] Information not available 04/24/2021 Mental Status Question Answer Note LastModified by Organization D etails LastModified Time Do you have difficulty concentrating, remembering or making decisions? No [email or web address] Information no t available 04/24/2021 Family History Relationship Description Onset Age of this Age Resolved Age Notes LastModified by Organization Details LastModified Time Mother Diabetes mellitus [email or web address] Not available 2016 08:47:03 Mother Multiple sclerosis [email or web address] Not available 2020 08:39:39 Mother Hypertensive disorder [email or web address] Not available 2021 09:51:11 Father Chronic obstructive pulmonary disease [email or web address] Not available 2020 10:55:26 Father Hypertensive disorder [email or web address] Not available 2021 09:51:11 Medical History Condition Response Hyperthyroidism Y Gynecological History Statement/Question Response Abnormal Pap N Flow Heavy Date of LMP 07/15/2024 Post Menopausal Bleeding N STIs/STDs N HPV Vaccine N Current Control Method None Age at First Child 19 Sexually Active? Y Menses Monthly Y Date of Last Pap Smear 06/26/2021 Sexual Problems? N LMP Definite Hormone Replacement Therapy N Obstetrics History GPAL:G 0 P 0 0 0 0 Immunizations Vaccine Type Date Status Note Provider Nam e and Address Organization Details Recorded Time Influenza, split virus, trivalent, PF 4 completed Elayne Thorne null, [facility] 07/17/2024 17:40:07 Influenza, split virus, quadrivalent , PF 3 completed Elayne Thorne null, [facility] 07/17/2024 17:40:07 Influenza, split virus, quadrivalent , PF 1 cancelled patient objection Tolu Dillardram null, [facility] 04/24/2021 09:25:53 Past Encounters Encounter ID Performer Location Encounter Start Date Encounter Closed Date Diagnosis/Indication Diagnosis SNOMED-CT Code Diagnosis ICD10 Code Diagnosis IMO Codes Diagnosis Note [id number] [facility] [address] [place] [address] 12/12/2013 00:00:00 [id number] [facility] [address] [place] [address] 07/16/2015 00:00:00 [id number] [facility] [address] [place] [address] 08/04/2015 00:00:00 [id number] [facility] [address] [place] [address] 08/04/2015 00:00:00 [id number] [facility] [address] [place] [address] 01/30/2016 00:00:00 [id number] Alyssa Figueroa APRN [facility] [address] [place] [address] 02/02/2017 08:37:21 02/02/2017 10:05:21 Body mass index 20-24 - normal 018502550 Z68.20 Nicotine dependence 5629 4008 F17.200 Headache 17204828 R51 Migraine 25733714 G43.90 9 Frontal sinusitis 803662 05 J32.1 [id number] Jorge Bailey MD [address] [place] [address] 03/30/2017 09:43:41 03/30/2017 12:59:48 Low back pain 184597372 M54.5 Hypothyroidism 76798149 E03.9 Fatigue 19803549 R53.83 Anxiety 66983384 F41.9 Depressive disorder 3548 9007 F32.9 History of thyroid disorder 208126986 Z86.39 [id number] Jorge Bailey MD [address] [place] [address] 09/08/2017 15:24:44 09/08/2017 16:52:46 Nausea, vomiting and diarrhea 5200091 R11.2 [id number] Jorge Bailey MD [address] [place] [address] 05/19/2018 15:36:25 05/19/2018 16:50:25 Neck pain 07775056 M54.2 Dizziness 090406796 R42 [id number] Alma Chu [address] [place] [address] 08/01/2018 13:40:56 08/01/2018 15:18:10 Pain in left knee 9061028233 61599 M25.562 Migraine 65007670 G43.90 9 Anxiety 76030581 F41.9 Cigarette smoker 3269841 7 F17.601 [id number] Alma Chu [address] [place] [address] 09/11/2018 10:01:40 09/11/2018 12:30:32 Migraine 02958771 G43.909 Pain in left knee 566619 9409 14956 M25.562 History of thyroid disorder 810700723 Z86.39 Endocrine/ metabolic screening 819709794 Z13.989 [id number] Farhan Nelson MD [address] [place] [address] 04/09/2019 13:28:32 04/09/2019 15:18:56 Acute bronchitis 91905839 J20.9 Nicotine dependence 5629 4008 F17.534 [id number] Farhan Nelson MD [address] [place] [address] 07/10/2020 10:38:46 07/10/2020 12:35:54 Anxiety 18679283 F41.9 Asthma 415992017 J45.90 9 Body mass index 20-24 - normal 076023264 Z68.22 Major depr essive disorder 136975494 F32.9 Right trig eminal neuralgia 5533591855 2171329 G50.0 Nicotine dependence 5629 4008 F17.036 [id number] Farhan Nelson MD [address] [place] [address] 08/01/2020 16:35:01 08/01/2020 17:08:22 Trigeminal neuralgia 40126241 G50.0 [id number] Farhan Nelson MD [address] [place] [address] 08/15/2020 16:34:49 09/01/2020 15:36:14 Body mass index 20-24 - normal 696456809 Z68.22 Trigeminal neuralgia 316 26029 G50.0 Anxiety 06729611 F41.9 Depressive disorder 3548 9007 F32.9 [id number] Tolu Awad [address] [place] [address] 02/17/2021 08:51:34 02/17/2021 09:29:40 Asthma 367595890 J45.909 Major depr essive disorder 536128079 F32.9 Trigeminal neuralgia 316 40051 G50.0 Depressive disorder 3548 9007 F32.9 History of thyroid disorder 351871864 Z86.39 Adult heal th examination 123563705 Z00.00 [id number] Tolu Awad [address] [place] [address] 03/27/2021 08:10:48 03/27/2021 09:05:05 Depressive disorder 96139836 F32.9 Major depr essive disorder 752810483 F32.9 Asthma 457305884 J45.90 9 History of thyroid disorder 557506047 Z86.39 Adult heal th examination 203662017 Z00.00 Insomnia 426146069 G47.0 0 [id number] Tolu Awad [address] [place] [address] 04/24/2021 08:39:35 04/24/2021 09:23:47 Depressive disorder 16191990 F32.9 Anxiety 12348077 F41.9 Major depr essive disorder 669532736 F32.9 Trigeminal neuralgia 316 64366 G50.0 Asthma 132730641 J45.90 9 Administra tion of influenza vaccine 78812409 Z23 [id number] Tolu Awad [address] [place] [address] 06/26/2021 09:44:39 06/26/2021 10:22:44 Asthma 262923843 J45.909 Depressive disorder 3548 9007 F32.9 Trigeminal neuralgia 316 16853 G50.0 Anxiety 86883079 F41.9 Nicotine dependence 5629 4008 F17.200 Vertigo 115947744 R42 Diplopia 03288238 H53.2 [id number] Tolu Awad [address] [place] [address] 09/11/2021 08:30:46 09/11/2021 09:25:17 Major depressive disorder 036904069 F32.9 Vertigo 472114843 R42 Migraine 99735978 G43.90 9 Asthma 139230019 J45.90 9 Renewal of prescription 735906541 Z76.0 [id number] Evens Howard APRN [address] [address] 12/17/2022 15:23:11 12/17/2022 16:22:36 Exposure to SARS-CoV-2 360759869 Z20.356 [id number] Evens Howard APRN [address] [address] 07/17/2024 17:35:20 07/17/2024 18:32:08 Depressive disorder 82357984 F32.9 due to multiple meds that she has tried and failed will refer for medication adjustment if no improvemen t or worsening return or go to ed Anxiety 52639401 F41.9 pt wants to wait on gensight test prior to starting meds since she has failed numerous ones Health Concerns Section Related Observation LastModified by Organization Detai ls LastModified Time None Recorded Concern Status LastModified by Organization Details LastModified Time None Recorded Advance Directives Directive N: Payers Insurance Date Sequence Insurance Name Policy Number Policy Prasad Covered Member ID Prasad Member ID Guarantor Name 02/17/2021 1 *SELF PAY* Re guero [place] 07/30/2024 1 () Albertina [place] [id number] Albertina [place] 07/17/2024 1 [place] [id number] Albertina [place] [id number] Albertina [place] 08/01/2020 PROGRESSIVE Albertinalaina Collins Albertina [place] 08/01/2020 1 [employer] ([place]) [id number] Albertina Ana [id number] Albertina [place] 03/27/2021 1 [facility] [place] [facility] Albertina B Ana [id number] Albertina [place] 05/29/2021 [place] Albertina B [place] [id number] Albertina [place] 03/27/2021 1 [facility] [place] Albertina [place] [id number] Albertina [place] 08/01/2020 1 [employer] - [employer] [place] Albertina S [place] [id number] Albertina [place] 08/01/2020 MEDICAID-[facility] WRAP BILLING (MEDICAID) PASCUAL [place] [id number] Albertina [place] 12/17/2022 1 *SELF PAY* Re guero [place] 05/29/2021 MEDICAID-[facility] WRAP BILLING (MEDICAID) [place] Albertina B Ana [id number] Albertina [place] Notes Date Note Type Note Provider Name and Address Organization Details Recorded Time 04/24/2021 text/html more face pain- when touch or brush teeth. gabap and tyl and motrin before. never been on carbamazepine but didnt work. no diplopia, focal weakneess, dysarthria, walking. had tooth pulled at dentist- didnt help. decl mri. mom has MS. diego and sweroquel helping. 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 for bp spikes. helped some with spikes. no heart palpitations. 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 gets sweaty. vertigo. no cough nor cold. otalgia and ringing in ears. no menieres in family. constant vertigo- better today. depression ok-cymbalta helping. no si. RAJESH Quintana - [facility] 06/26/2021 10:22:56 09/11/2021 text/html vertigo worse. affecting job. 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 constant-meclizine not helping. better today. not on gabap as much has occ R sided trigem neuraliga. mom has MS. has MRI set up as asked to get some mos ago. no hearing loss. no tinnitus. no falling. no focal weakness. RAJESH Quintana - [facility] 09/11/2021 09:28:02 12/17/2022 text/html Patient presents to the office today due to possible COVID-19 exposure. Pt is currently asymptomatic. Evens Howard, LOAN ORIGINATOR [address], [place], [address], [place] - [facility] 12/17/2022 15:57:41 07/17/2024 text/html ROS as noted in the HPI 39 yr old female presents for follow up on bipolar and anxiety and depression. pt states her current meds are not helping like they once did. pt states she has tried and failed numerous medications. no si or hi Evens Howard, [employer] ORIGINATOR [address], [place], [address], [place] - [facility] 07/17/2024 18:31:17 OBGyn Episode No OBEpisode recorded.
--- OUTSIDE RECORDS SUMMARY | 2025-03-17 11:16 | XMS_ITS | Clinical Summary ---
Author Organization [facility] Address [address] [place] [address] Care Team Providers Care Manager Supply Name Role Phone Tanya Argueta APRN Primary Care Provider U navaildanielle Allergies Active Allergy Reactions Criticality Noted Date Comments Carbamazepine Itching Medium 08/08/2023 Penicillins Anaphylaxis,Hives,Ot her - please document in the comment field High 07/16/2015 Couldn't breath Topiramate Hives,Itching,Rash Medium 07/19/2024 Medications albuterol (Proventil) (2.5 MG/3ML) 0.083% nebulizer solution Take 3 mL (2.5 mg) by nebulization daily as needed. 11/16/19 24 Active budesonide-formote rol (Symbicort) 160-4.5 MCG/ACT inhaler Inhale 2 puffs daily. 08/02/19 25 Active amLODIPine (Norvasc) 5 MG tablet Take 1 tablet (5 mg) by mouth in the morning and 1 tablet (5 mg) in the evening. 08/02/19 25 Active aspirin 81 MG EC tablet Take 1 tablet (81 mg) by mouth 1 (one) time each day. 07/27/19 25 Active cholecalciferol (Vitamin D-3) 50 MCG (2000 UT) capsule Take 1 capsule (2,000 Units) by mouth 1 (one) time each day. 08/02/19 25 Active ergocalciferol 1.25 MG (85217 UT) capsule Take 1 capsule (50,000 Units) by mouth every 7 (seven) days. 07/27/19 25 Active fexofenadine (Ayse) 180 MG tablet Take 1 tablet (180 mg) by mouth 1 (one) time each day. 08/02/19 25 Active gemfibrozil (Lopid) 600 MG tablet Take 1 tablet (600 mg) by mouth in the morning and 1 tablet (600 mg) in the evening. Take before meals. 07/30/19 25 Active lamoTRIgine (LaMICtal) 25 MG tablet Take 1 tablet (25 mg) by mouth daily. 08/02/19 Active meclizine (Antivert) 25 MG tablet Take 1 tablet (25 mg) by mouth in the morning and 1 tablet (25 mg) at noon and 1 tablet (25 mg) in the evening. 07/23/19 25 Active omeprazole (PriLOSEC) [address] capsule Take 1 capsule (20 mg) by mouth in the morning and 1 capsule (20 mg) in the evening. 08/02/19 25 Active prochlorperazine (Compazine) 5 MG tablet Take 1 tablet (5 mg) by mouth every 6 hours as needed. 08/23/19 25 Active propranolol (Inderal) 40 MG tablet Take 1 tablet (40 mg) by mouth in the morning and 1 tablet (40 mg) in the evening. 08/02/19 25 Active SUMAtriptan (Imitrex) 100 MG tablet Take 1 tablet (100 mg) by mouth 1 (one) time as needed. Active ondansetron ODT (Zofran-ODT) 4 MG disintegrating tablet Take 1 tablet (4 mg) by mouth every 8 hours as needed for nausea or vomiting. 20 tablet 08/23/19 25 Active Family History Medical History Relation Name Comments Coronary artery disease Father Hypertension, benign Father Hypertension, benign Mother dm2 Mother Relation Name Status Comments Father Mother Social History Tobacco Use Types Packs/Day Years Used Date Smoking Tobacco: Never Assessed Comments No Sex and Gender Information Value Date Recorded Sex Assigned at Female 08/22/2024 3:05 PM EDT Legal Sex Female 10:14 PM EST Gender Identity Female 08/22/2024 3:05 PM EDT Sexual Orientation Straight 08/22/2024 3: 05 PM EDT Last Filed Vital Signs Vital Sign Reading Time Taken Comments Blood Pressure 142/82 08/22/2024 3:31 PM EDT Pulse - - Temperature - - Respiratory Rate - - Oxygen Saturation - - Inhaled Oxygen Concentration - - Weight 93.9 kg (207 lb) 08/22/2024 3:31 PM EDT Height 175.3 cm (5' 9 ) 08/22/2024 3:31 PM EDT Body Mass Index 30.57 08/22/2024 3:31 PM EDT Plan of Treatment Health Maintenance Due Date Last Done Comments [facility]-Depression Screening 1985 [facility]-HIV Screening 1985 [facility]-Hepatitis C Screening 1985 [facility]-/Child/Adol SDOH Screenings 1985 [facility]-Varicella Vaccines (1 of 2 - 13+ 2-dose series) 1998 [facility]- SDOH Screenings 2003 [facility]-Adult SDOH Screenings 2003 [facility]-DTaP,Tdap,and Td Vaccine s (1 - Tdap) 2004 [facility]-Hepatitis B Vaccines (1 of 3 - 19+ 3-dose series) 2004 [facility]-Pap Smear 2006 HPV Vaccines (1 - 3-dose SCD M series) 2012 [facility]-Cervical Cancer Screening 2015 [facility]-HPV/Cotest 2015 [facility]-[id number]-23 Vaccine (1 - season) 2025 [facility]-Influenza Vaccine (#1) 02/11/202503/19, 03/17/2023 [facility]-Zoster Vaccines (1 of 2) 2035 [facility]-Obesity Intervention Completed 08/22/2024 [facility]-HIB Vaccines Aged Out No longer e ligible based on patient's age to complete this topic [facility]-Hepatitis A Vaccines Aged Out No longer eligible based on patient's age to complete this topic [facility]-IPV Vaccines Aged Out No longer e ligible based on patient's age to complete this topic [facility]-Pneumococcal Vaccine: Pediatrics (0 to 5 Years) and At-Risk Patients (6 to 49 Years) Aged Out No longer eligible b ased on patient's age to complete this topic [facility]-Rotavirus Vaccines Aged Out No lo nger eligible based on patient's age to complete this topic Insurance [facility] Care Teams Manager Supply Relationship Specialty Start Date End Date Tanya Argueta APRN PCP - General Anesthesiology 08/22/24
[2025-03-17 11:33] LABS: Microscopic, Urine URINE MICROSCOPIC (MICROSCOPIC)
[2025-03-17 11:35] LABS: Hematocrit 44.5 % (37.0-47.0); Hemoglobin 15.4 g/dL (12.2-16.2); Immature Granulocytes % 0.4 %; Mean Corpuscular HGB Conc 34.6 g/dL (31.8-35.4); Mean Corpuscular Hemoglobin 30.9 pg (27.0-31.2); Mean Corpuscular Volume 89.4 fl (81-99); Nucleated Red Blood Cells % 0 %; Platelet Count 289 K/mm3 (142-424); Red Blood Count 4.98 M/mm3 (4.20-5.40); Red Cell Distribution Width-SD 39.6 fL; White Blood Count 12.6 K/mm3 (4.8-10.8)
[2025-03-17 11:38] LABS: Chloride 100 mmol/L (98-107)
[2025-03-17 11:39] LABS: Albumin Level 4.5 g/dl (3.5-5.0); Potassium 4.4 mmoL/L (3.5-5.1); Sodium 137 mmol/L (136-145)
--- NOTE | 2025-03-17 11:40 | CT_ITS ---
PROCEDURE INFORMATION: Exam: CT Abdomen And Pelvis With Contrast Exam date and time: 03/17/2025 12:17 PM Age: 39 years old Clinical indication: Other: Left kidney stone vs. Diverticulitis TECHNIQUE: Imaging protocol: Computed tomography of the abdomen and pelvis with contrast. Radiation optimization: All CT scans at this facility use at least one of these dose optimization techniques: automated exposure control; mA and/or kV adjustment per patient size (includes targeted exams where dose is matched to clinical indication); or iterative reconstruction. Contrast material: ISOVUE; Contrast volume: 75 ml; Contrast route: IV; COMPARISON: CR XR CHEST 2V 10/11/2020 11:11 AM FINDINGS: Lungs: Calcified right lung base granuloma. Liver: A few nonspecific low-attenuation liver lesions with the largest measuring 3 mm. Gallbladder and biliary ducts: Normal. No calcified stones. No ductal dilation. Pancreas: Normal. No ductal dilation. Spleen: Normal. No splenomegaly. Adrenal glands: Normal. No mass. Kidneys and ureters: 2 mm stone in the proximal left ureter (series 3, image 62), with mild dilation of the left kidney extrarenal pelvis. Right kidney unremarkable. Stomach and bowel: Colonic diverticulosis. No bowel dilation. No bowel wall thickening. Appendix: No evidence of appendicitis. Intraperitoneal space: Unremarkable. No free air. No significant fluid collection. Vasculature: Atherosclerosis. Lymph nodes: Unremarkable. No enlarged lymph nodes. Urinary bladder: Unremarkable as visualized. Reproductive: 2.6 x 2.6 x 2.5 cm simple appearing right ovarian cyst. Left ovary unremarkable. Uterus unremarkable. Tubal ligation clips. Bones/joints: Unremarkable. No acute fracture. Soft tissues: Small fat containing umbilical hernia. IMPRESSION: 1. 2 mm stone in the proximal left ureter, with mild dilation of the left kidney extrarenal pelvis. 2. Colonic diverticulosis without CT evidence of diverticulitis 3. 2.6 x 2.6 x 2.5 cm simple appearing right ovarian cyst. No further imaging is recommended. (Reference: Jasper) 4. A few nonspecific low-attenuation liver lesions with the largest measuring 3 mm. In a low-risk patient, this is most likely to be benign and no further follow-up is recommended. In a high-risk patient, follow-up MRI in 3-6 months is recommended (or earlier if warranted by the patient's specific clinical circumstances). (Reference: [place]) 5. Atherosclerosis. 6. Additional chronic/nonemergent findings as detailed above. REFERENCES: 1. Jasper et al. Management of Incidental Adnexal Findings on CT and MRI: A White Paper of the ACR Incidental Findings Committee, J Am Amie Radiol. 2020 Jul;17(2):248-254. 2. [place] GUARDADO, et al. Management of Incidental Liver Lesions on CT: A White Paper of the ACR Incidental Findings Committee. J Am Amie Radiol. 2017;14(11):8598-3950.
--- NOTE | 2025-03-17 11:40 | ED_ITS ---
Discharge Plan Disposition Patient Disposition: Xfer Other Condition: Good Prescriptions Prescriptions: No Action prednisone 20 MG tablet 20 mg PO BID Qty: 10 0RF benzonatate 100 MG capsule 100 mg PO TIDP PRN (Reason: Cough) Qty: 20 0RF doxycycline monohydrate 100 MG capsule 100 mg PO BID Qty: 10 0RF Referrals Follow up/Referrals: Provider,Referral, [Primary Care Provider, Medical] - See instructions Clinical Impressions Clinical Impression: Urinary tract infection, Calculus of proximal left ureter Stand Alone Forms Stand Alone Forms: Transfer Record - ED Print Language Print Language: Hong Konger Discharge ED Provider: Beka Diaz General Adult HPI General Chief complaint: Abdominal Pain Stated complaint: L side abd. pain, nausea, sweating Time Seen by Provider: 03/17/25 11:35 Mode of Arrival: Ambulatory Source of Information: Patient Description of Symptoms (Recalled from ER Triage Doc. by RN): left sided abdominal pain that woke her up from sleep 3 hours ago. she was fine when she went to bed last night. History of Present Illness HPI narrative: This is a 39-year-old female patient, with no significant past medical history noted the medications, who is presenting to the emergency department today for evaluation of left lower quadrant abdominal pain. Patient states this pain woke her up from sleep this morning. She has had onset of hematuria since the beginning of her symptoms. She has had some nausea but no vomiting. No diarrhea, no constipation, no hematochezia, or melena. No hematemesis. Patient is not having dysuria. No fevers. She is having some pain in her left flank as well Related Data Previous Rx's ?Medication ?Instructions ?Recorded benzonatate 100 mg capsule 100 mg PO TIDP PRN Cough #2 0 caps 10/11/20 doxycycline monohydrate 100 mg 100 mg PO BID #10 caps 10/11/20 capsule prednisone 20 mg tablet 20 mg PO BID #10 tabs Allergies Allergy/AdvReac Type Severity Reaction Status Date / Time Penicillin Allergy Intermediate I-HIVES Uncoded 05/31/17 14:44 [facility] Disclaimer: The information contained in this section may have been updated after the patient was seen, as this information can be updated by other users. Social History Smoking Status: Current every day smoker alcohol intake: never current occupational status: employed Travel in the last 8 weeks?: None Have you lived/traveled outside US in past 30 days?: No Contact w/someone who lives/traveled outside US past 30 days?: No Exposure to someone with infectious disease in past 14 days?: No Do you have a fever (greater than 100.4 F or 38 C)?: No Have you tested positive for COVID-19?: No Exposed to someone with COVID-19 in past 14 days?: No Do you have a sore throat?: No Do you have a cough?: No Do you have any weakness?: No Do you have any diarrhea?: No Are you experiencing any unusual bleeding?: No Do you have any muscle aches/pain?: No Do you have any abdominal pain?: Yes Are you experiencing loss of taste or smell?: No Other Medical History Have you received the Flu Vaccine for this season: Yes Have you received the Pneumonia Vaccine: No ROS Obtained: Yes Systems reviewed as appropriate & no additional complaints except as documented Physical Exam General General appearance: other (See MDM) Respiratory Respiratory exam: Present other (See MDM) Cardiovascular Cardiovascular exam: Present other (See MDM) Neurological Exam Neurological exam: Present other (See MDM) Medical Decision Making Medical Records Medical records reviewed: Yes I reviewed the patient's medical records. Screening: Per USPSTF and CDC recommendations, given the prevalence of disease in our region, it is our hospital?s policy to screen for HIV and viral Hepatitis for all patients aged 18 and over and those with ongoing risk factors. Juan Miguel Inquiry Pt receiving controlled substance: No Juan Miguel was queried for this patient: No Vital Signs: 03/17/25 11:12 03/17/25 12:01 03/17/25 12:30 Temperature 98.3 F Temperature Source Oral Pulse Rate 61 58 L Pulse Rate [Right] 64 Respiratory Rate 15 Blood Pressure 109/64 L 113/69 Blood Pressure [Right Arm] 131/82 Blood Pressure Mean Blood Pressure Mean [Right Arm] 98 02 Sat by Pulse Oximetry 99 96 99 Oxygen Delivery Method Room Air Room Air 03/17/25 13:00 03/17/25 13:30 03/17/25 14:01 Temperature Temperature Source Pulse Rate 55 L 56 L 61 Pulse Rate [Right] Respiratory Rate Blood Pressure 108/71 L 105/60 L 99/54 L Blood Pressure [Right Arm] Blood Pressure Mean Blood Pressure Mean [Right Arm] 02 Sat by Pulse Oximetry 97 98 99 Oxygen Delivery Method Room Air Room Air 03/17/25 14:30 03/17/25 15:01 03/17/25 15:30 Temperature Temperature Source Pulse Rate 54 L 53 L 60 Pulse Rate [Right] Respiratory Rate Blood Pressure 104/72 L 99/60 L 93/60 L Blood Pressure [Right Arm] Blood Pressure Mean Blood Pressure Mean [Right Arm] 02 Sat by Pulse Oximetry 99 98 99 Oxygen Delivery Method Room Air Room Air Room Air 03/17/25 16:00 03/17/25 16:30 Temperature Temperature Source Pulse Rate 58 L 54 L Pulse Rate [Right] Respiratory Rate Blood Pressure 102/61 L 100/66 L Blood Pressure [Right Arm] Blood Pressure Mean 75 Blood Pressure Mean [Right Arm] 02 Sat by Pulse Oximetry 94 L 97 Oxygen Delivery Method Room Air Room Air Lab Data Lab Results 03/17/25 11:21: WBC 12.6 H, RBC 4.98, Hgb 15.4, Hct 44.5, MCV 89.4, MCH 30.9, MCHC 34.6, RDW 12.1, Plt Count 289, MPV 9.8, Neut % (Auto) 79.1, Lymph % (Auto) 12.5, [place] % (Auto) 6.3, Eos % (Auto) 0.9, Baso % (Auto) 0.8, Neut # (Auto) 10.0 H, Lymph # (Auto) 1.6, [place] # (Auto) 0.8, Eos # (Auto) 0.1, Baso # (Auto) 0.1, Sodium 137, Potassium 4.4, Chloride 100, Carbon Dioxide 28, Anion Gap 13.4, BUN 9, Creatinine 0.60, Estimated Creat Clear 185, Estimated GFR 111, Est GFR ( Amer) 135, Glucose 121 H, Calcium 9.8, Total Bilirubin 0.6, AST 21, ALT 16, Alkaline Phosphatase 117, Total Protein 8.0, Albumin 4.5, Globulin 3.5 H, Albumin/Globulin Ratio 1.3, HCV Ab SAADIA w/Rflx PCR Qn Negative, HIV Ag/Ab Combo Qual Negative 03/17/25 11:28: Urine Color Dark yellow, Urine Appearance Turbid, Urine pH 6.5, Ur Specific [place] 1.025, Urine Protein 2+ A, Urine Glucose (UA) Negative, Urine Ketones 1+, Urine Blood 3+ A, Urine Nitrate Positive A, Urine Bilirubin Negative, Urine Urobilinogen 1.0, Ur Leukocyte Esterase 1+ A, Urine RBC 5-10, Urine WBC 3-5, Ur Squamous Epith Cells 3-5, Urine Bacteria 1+, Urine Mucus Trace, Urine HCG, Qual Negative 03/17/25 11:35: Lipase 147 03/17/25 11:21 03/17/25 11:21 Orders (Tests/Meds): ED MEDICATIONS Generic Name Dose Route Start Last Admin Trade Name Freq PRN Reason Stop Dose Admin Sodium Chloride 10 ml 03/17/25 12:19 03/17/25 12:20 Sodium Chloride 0.9% 10ml Syr (Rad Only) IV 04/16/25 12:18 10 ml NEEDED PRN Administration Maintain IV Site Discontinued Medications Generic Name Dose Route Start Last Admin Trade Name Freq PRN Reason Stop Dose Admin Ceftriaxone Sodium 2 gm/ 100 mls @ 200 mls/hr 03/17/25 14:20 03/17/25 15:02 Sodium Chloride IV 03/17/25 14:49 Infused ONCE ONE Infusion Lactated Ringer's 1,000 mls @ 999 mls/hr 03/17/25 15:49 03/17/25 15:57 Lactated Ringer's 1000 Ml Bag IV 03/17/25 16:49 999 mls/hr .Q1H1M ONE Administration Iopamidol 75 ml 03/17/25 12:19 03/17/25 12:20 Iopamidol-370 (76%);100ml Bottle IV 03/17/25 12:20 75 ml ONCE ONE Administration Ketorolac Tromethamine 30 mg 03/17/25 16:00 03/17/25 16:01 Ketorolac 30mg/Ml Vial IV 03/17/25 16:01 30 mg ONCE ONE Administration Morphine Sulfate 4 mg 03/17/25 11:40 03/17/25 11:50 Morphine 4mg/Ml Syringe IV 03/17/25 11:41 4 mg ONCE ONE Administration Ondansetron HCl 4 mg 03/17/25 11:40 03/17/25 11:50 Ondansetron 4mg/2ml Vial IV 03/17/25 11:41 4 mg ONCE ONE Administration ORDERS Category Date Time Status CT abdomen pelvis w con Stat Cat Scan 03/17/25 11:40 Completed Complete Blood Count Auto Diff Stat Lab 03/17/25 11:21 Completed Comprehensive Metabolic Panel Stat Lab 03/17/25 11:21 Completed HIV Combo Stat Lab 03/17/25 11:21 Completed Hepatitis C Ab Qual. W/ RFX Stat Lab 03/17/25 11:21 Completed Lipase Stat Lab 03/17/25 11:35 Completed Urinalysis-Acute [Urinalysis and Microscopic] Stat Lab 03/17/25 11:28 Completed Urine , HCG Qual. Stat Lab 03/17/25 11:28 Completed Urine Culture Stat Micro 03/17/25 11:28 Received Medical Decision Narrative: In summary, this is a 39-year-old female patient who is presenting to the emergency department today for evaluation of left lower quad abdominal pain onset this morning upon waking. She has had associated hematuria. No associated gastrointestinal symptoms. She took ibuprofen prior to arrival that adequately improved her symptoms. This patient has no comorbidities that would complicate their medical management or care.\ On initial evaluation of the patient they were resting comfortably in no acute distress and nontoxic in appearance. They are hemodynamically stable, saturating well room air, and are neurologically intact On physical examination the patient she is appropriately alert and interactive with GCS 15. Heart and lungs are clear to auscultation bilaterally. She has focal left lower quadrant abdominal tenderness without rebound or guarding. No peritonitis. She does have left CVA tenderness. Differential diagnosis includes urinary tract infection, , ureterolithiasis, pyelonephritis, diverticulitis, among others. Workup was initiated with hematologic labs as well as a urinalysis, urine test, CT scan of the abdomen and pelvis. Initial interventions have included 4 mg of morphine and 4 mg of Zofran. Labs personally interpreted by me demonstrate a leukocytosis of 12.6 up from a baseline of 6. No trans feasible anemia. No electrolyte derangement or acute kidney injury. Urinalysis demonstrates signs of overt infection with positive nitrites, positive leukocyte esterase, 3-5 white cells, and b 1+ bacteria. I have treated the patient with 2 g of Rocephin IV. CT scan was personally interpreted by me and demonstrates a small calculus in the left ureter. Official radiology read is in agreement and further characterize this is a 2 mm stone in the proximal left ureter with mild dilation of the left kidney extrarenal pelvis. I have added on 1 L of lactated Ringer's. On repeat reassessment she is resting comfortably no acute distress and is not currently displaying any signs of sepsis This patient's presentation is most consistent with an infected ureteral stone. We do not have urology capabilities here at our hospital. Therefore this patient will necessitate transfer for higher level of care. I spoke to the on-call urologist at [facility] in [place]. He states that if we transfer the patient to their hospital to a telemetry bed overnight that he would consult morning for removal of the stone. I then had an interactive discussion with Dr. Schulz of the internal medicine service at [facility] who graciously agreed to accept the patient for transfer. Patient is currently hemodynamically stable and is not demonstrating any signs of sepsis so we had a shared decision-making discussion on transport. Patient has elected to transport herself via privately owned vehicle. She left the hospital in stable condition to transport herself to [place]. Critical Care Critical Care Time Critical Care Time: No
[2025-03-17 11:41] LABS: Blood Urea Nitrogen 9 mg/dl (7-17); Creatinine Clearance Estimated 185 mL/min (50-200); Creatinine,Serum 0.60 mg/dl (0.52-1.04); Estimated Glomerular Filt Rate 111 ml/min (>60); GFR (African American) 135 ML/MIN (>60)
[2025-03-17 11:42] LABS: Alanine Aminotransferase 16 U/L (12-78); Albumin/Globulin Ratio 1.3 (1.1-1.8); Alkaline Phosphatase 117 U/L (38-126); Anion Gap 13.4 mEq/L (5-15); Aspartate Amino Transferase 21 U/L (14-36); Bilirubin,Total 0.6 mg/dl (0.2-1.3); Calcium 9.8 mg/dl (8.4-10.2); Carbon Dioxide 28 mmol/L (22.0-30.0); Globulin 3.5 g/dL (1.3-3.2); Glucose 121 mg/dl (74-100); Total Protein,Serum 8.0 g/dl (6.3-8.2)
[2025-03-17 11:48] LABS: Glucose,Urine (UA) Negative (Negative); Ketones,Urine 1+ (Negative); Leukocyte Esterase,Urine 1+ (Negative); PH,Urine 6.5 (5.0-8.5); Protein,Urine 2+ (Negative); Specific Gravity, Urine 1.025 (1.005-1.030); Urobilinogen,Urine 1.0 EU/dl (0.2)
[2025-03-17 11:50] LABS: Urine Pregnancy, HCG Qual. Negative (Negative)
[2025-03-17] MEDS: MORPHINE 4MG/ML SYRINGE 4 MG IV (11:50)
[2025-03-17] MEDS: ONDANSETRON 4MG/2ML VIAL 4 MG IV (11:50)
[2025-03-17 12:13] LABS: Bilirubin,Urine Negative (Negative)
[2025-03-17 12:14] LABS: Color,Urine Dark Yellow (Yellow)
[2025-03-17] MEDS: SODIUM CHLORIDE 0.9% 10ML SYR (RAD ONLY) 10 ML IV (12:20)
[2025-03-17] MEDS: IOPAMIDOL-370 (76%);100ML BOTTLE 75 ML IV (12:20)
[2025-03-17 12:28] LABS: Lipase 147 U/L (23-300)
[2025-03-17 12:33] LABS: Bacteria,Urine 1+ /lpf; Mucus,Urine Trace /lpf
[2025-03-17 13:19] LABS: Hepatitis C Ab Qual. W/ RFX NEGATIVE (Negative)
--- NOTE | 2025-03-17 15:41 | PC.NURSE ---
Called [facility], no urology coverage at [facility] or [facility]. informed.
--- NOTE | 2025-03-17 15:50 | PC.NURSE ---
Called for a patient transfer per Dr. Diaz. they will call back when a hospitalist can talk.
[2025-03-17] MEDS: LACTATED RINGERS 1000ML 1,000 ML 999 ML IV (15:57)
[2025-03-17] MEDS: KETOROLAC 30MG/ML VIAL 30 MG IV (16:01)
--- NOTE | 2025-03-17 16:50 | PC.NURSE ---
Dr Diaz is currently on phone with from [facility]
== END 2025-03-17 17:43 | disposition other institution (70) ==
PROVIDERS: Emergency Provider Student in an Organized Health Care Education/Training Program
DX: R10.32 Left lower quadrant pain (principal); R10.A2 Flank pain, left side; N39.0 Urinary tract infection, site not specified; N20.1 Calculus of ureter; F17.210 Nicotine dependence, cigarettes, uncomplicated
CPT/HCPCS: 74177; 80053; 81001; 81025; 83690; 85025; 86803; 87086; 87389; 96361; 96365; 96375; 99285; J0696; J1885; J2270; J2405; J7120; Q9967

== ENCOUNTER 2025-04-08 05:13 | Emergency (ER) | payer OTHER, SELFPAY ==
--- OUTSIDE RECORDS SUMMARY | 2025-03-17 19:01 | XMS_ITS | Encounter Summary ---
Author Organization [employer] ([place], [place], [place], [place]) Address [address] [place] [address] Care Team Providers Care Emergency Room Specialist Name Role Phone Kelly SeymourAFermin Primary Care Provider Reason for Visit * Auth/Cert (Routine) Specialty Diagnoses / Procedures Referred By Tona t Referred To Contact Diagnoses Kidney stone Kidney Stone [address] [place] [address] Phone: tel: fax: [address] [place] [address] Phone: tel: fax: Referral ID Status Reason Start Date Expiration Date Visits Re quested Visits Authorized [id number] 1 1 Encounter Details Date Type Department Care Team (Late st Contact Info) Description 03/17/2025 7:01 PM EDT - 03/18/2025 2:20 PM EDT Hospital Encounter [address] [place] [address] Agustín Schulz MD [address] [place] [id number] [place] [address] [place] [id number] Discharge Disposition: Home or Self Care Social History Tobacco Use Types Packs/Day Years Used Date Smoking Tobacco: Never Smokeless Tobacco: Never Tobacco Cessation:Counseling Given: No Housing Stability Vital Sign Answer Joel e Recorded In the last 12 months, was t here a time when you were not able to pay the mortgage or rent on time? No 03/18/2025 In the past 12 months, how m any times have you moved where you were living? 0 03/18/2025 At any time in the past 12 m [facility] [place], were you homeless or living in a snf (including now)? No 03/18/2025 Utilities Answer Date Recorded In the past 12 months, has t he electric, gas, oil, or water company threatened to shut off services in your home? No 03/18/2025 Interpersonal Safety Answer Date Record ed How often does anyone, trudi gomez family and friends, physically hurt you? Never 03/18/2025 How often does anyone, trudi gomez family and friends, insult or talk down to you? Never 03/18/2025 How often does anyone, trudi gomez family and friends, threaten you with harm? Never 03/18/2025 How often does anyone, trudi gomez family and friends, scream or curse at you? Never 03/18/2025 Housing Stability Answer Date Recorded What is your living situation today? I have a [facility] place to live 03/18/[address] you li ve. Do you have problems with any of the following? None of the above 03/18/2025 Food Insecurity Answer Date Recorded Within the past 12 months, y ou worried that your food would run out before you got money to buy more. Never true 03/18/2025 Within the past 12 months, t he food you bought just didn't last and you didn't have money to get more. Never true 03/18/2025 Transportation Needs Answer Date Record ed In the past 12 months, has l ack of reliable transportation kept you from medical appointments, meetings, work or from getting things needed for daily living? No 03/18/2025 Financial Resource Strain Answer Date R ecorded How hard is it for you to pa y for the very basics like food, housing, medical care, and heating? Would you say it is: Not hard at all 03/18/2025 Employment Answer Date Recorded Do you want help finding or keeping work or a job? I do not need or want help 03/18/2025 Family and Community Support Answer Joel e Recorded If for any reason you need h elp with day-to-day activities such as bathing, preparing meals, shopping, managing finances, etc., do you get the help you need? I get all the help I need 03/18/2025 Feeling Lonely or Isolated 0 03/18 Educational Attainment Answer Date Anatoliy rded Do you speak a language other than [place] at [facility]? No 03/18/2025 Do you want help with school or training? For example, starting or completing job training or getting a high school diploma, GED or equivalent. No 03/18/2025 Physical Activity Answer Date Recorded Number of minutes of exercise per week 0 03/18/2025 Self Management Answer Date Recorded Because of a physical, menta l, or emotional condition, do you have serious difficulty concentrating, remembering, or making decisions? (5 years or older) No 03/18/2025 Because of a physical, menta l, or emotional condition, do you have difficulty doing errands alone such as visiting a doctor's office or shopping? (15 years or older) No 03/18/2025 Substance Use Answer Date Recorded How many times in the past y ear have you used prescription drugs for non-medical reasons? Never 03/18/2025 How many times in the past year have you used [place] legal drugs? Never 03/18/2025 Mental Health Answer Date Recorded Calculation of above two rows 0 Comments Unknown Sex and Gender Information Value Date Recorded Sex Assigned at Not on file Legal Sex Female 12:01 PM [employer] Gender Identity Not on file Sexual Orientation Not on file documented as of this encounter Last Filed Vital Signs Vital Sign Reading Time Taken Comments Blood Pressure 98/60 03/18/2025 3:51 AM EDT Pulse 58 03/18/2025 3:51 AM EDT Temperature 36.1 C (97 F) 03/18/2025 4:23 AM EDT Respiratory Rate 16 03/18/2025 3:51 AM EDT Oxygen Saturation 95% 03/18/2025 3:51 AM EDT Inhaled Oxygen Concentration - - Weight - - Height - - Body Mass Index - - documented in this encounter Discharge Summaries * Angle Davis MD - 03/18/2025 2:20 PM EDT Patient Name: Lea Perez : 1985 Date of Admission: 03/17/2025 Date of Discharge: 03/18/2025 2:20 PM Primary Care Physician: [facility] Consultations: Discharge Diagnoses: Kidney stone Hypertension Dehydration Rule out UTI Reason for Admission: Lea Perez is a 39 y.o. female presenting with left flank pain. 39-year-old female with no major medical problem no history of kidney stones patient presented at [facility] facility because of left flank pain patient was nausea Patient been evaluated at [facility] facility was found of obstructing kidney stone started on IV fluid IV antibiotics transferred to [facility] for urology evaluation Hospital Course: 39 y.o. female with a history of bipolar disorder and HTN who was admitted for a left ureteral stone. This is her first stone episode. A CT scan at [facility] showed a 2 mm left proximal ureteral stone. She started Rocephin empirically. We discussed management options for the small left ureteral stone including trial of passage with tamsulosin or left ureteroscopy with basket stone extraction, possible laser lithotripsy, and stent. She feels better and we agree on trial of passage. Plan: Start tamsulosin. Strain urine. Send home with a strainer. No urologic intervention planned today. She may be discharged home from a urologic standpoint when deemed appropriate by the hospitalist. She may follow-up in about 3 weeks. Studies Performed: Procedures Performed: Discharge Medications: Your medication list START taking these medications Instructions Comments Quantity Refills cefUROXime 500 MG tablet Commonly known as: CEFTIN Take 1 tablet (500 mg total) by mouth 2 (two) times daily for 7 days. 14 tablet 0 oxyCODONE 5 MG immediate release tablet Commonly known as: ROXICODONE Take 1 tablet (5 mg total) by mouth every 4 (four) hours as needed for up to 10 days Look-alike/Sound-alike medication. Max Daily Amount: 30 mg 8 tablet 0 tamsulosin 0.4 mg Cap 24 hr capsule Commonly known as: FLOMAX Take 1 capsule (0.4 mg total) by mouth daily for 30 days. 30 capsule 0 CONTINUE taking these medications Instructions Comments Quantity Refills amLODIPine 5 MG tablet Commonly known as: NORVASC Take 1 tablet (5 mg total) by mouth daily. 0 aspirin 81 MG EC tablet Take 1 tablet (81 mg total) by mouth daily. 0 cholecalciferol (vitamin D3) 25 mcg (1,000 unit) capsule Take 2 capsules (2,000 Units total) by mouth daily. 0 desvenlafaxine 50 MG 24 hr tablet Commonly known as: PRISTIQ Take 1 tablet (50 mg total) by mouth daily. 0 fexofenadine 180 MG tablet Commonly known as: REINA Take 1 tablet (180 mg total) by mouth daily. 0 furosemide 20 MG tablet Commonly known as: LASIX Take 1 tablet (20 mg total) by mouth as needed. 0 lamoTRIgine 100 MG tablet Commonly known as: LaMICtal Take 1 tablet (100 mg total) by mouth daily. 0 lisdexamfetamine 20 MG capsule Commonly known as: VYVANSE Take 1 capsule (20 mg total) by mouth every morning. Max Daily Amount: 20 mg 0 meclizine 25 mg tablet Commonly known as: ANTIVERT Take 1 tablet (25 mg total) by mouth 3 (three) times daily as needed for dizziness. 0 omeprazole 20 MG tablet Commonly known as: PriLOSEC OTC Take 1 tablet (20 mg total) by mouth daily. 0 propranoloL 40 MG tablet Commonly known as: INDERAL Take 1 tablet (40 mg total) by mouth daily Takes 40mg daily. 0 Vitamin D2 1,250 mcg (50,000 unit) capsule Generic drug: ergocalciferol Take 1 capsule (50,000 Units total) by mouth every 7 days. 0 Where to Get Your Medications These medications were sent to [facility] at [facility] [address] [facility] [address] [place] [phone] cefUROXime 500 MG tablet oxyCODONE 5 MG immediate release tablet tamsulosin 0.4 mg Cap 24 hr capsule Physical Exam Head atraumatic normocephalic Pupils round and reactive Eyes no conjunctival injection or discharge Ears no discharge Nose no bleeding or discharge Mouth dry Neck supple f full range of motion Chest clear to auscultation with crackle rhonchi Heart S1 and S2 healed regular rhythm Abdomen soft audible bowel sound no tenderness no guarding Extremities no edema erythema or tenderness Neurological patient alert awake move extremities Psychiatric no anxiety Skin no apparent rashes Endocrine no thyromegaly tenderness General Patient in bed mild distress Discharge Instructions Discharge Diet: Cardiac diet Discharge Activity: As tolerated Discharge Follow UP: Primary care physician 3 to 4 days Urology 1 to 2-week Disposition Home Contact information for follow-up [facility] Relationship: PCP - [facility] [id number] Next Steps: Follow up Instructions: unable to verify current pcp status, pt to take care of follow up Time Spent: 45 min Electronically signed by Angle Davis MD, 03/24/25, 8:39 PM EDT documented in this encounter Medications at Time of Discharge amLODIPine (NORVASC) 5 MG tablet Take 1 tablet (5 mg total) by mouth daily. aspirin 81 MG EC tablet Take 1 tablet (81 mg total) by mouth daily. cholecalciferol, vitamin D3, 25 mcg (1,000 unit) capsule Take 2 capsules (2,000 Units total) by mouth daily. desvenlafaxine (PRISTIQ) 50 MG 24 hr tablet Take 1 tablet (50 mg total) by mouth daily. ergocalciferol (Vitamin D2) 1,250 mcg (50,000 unit) capsule Take 1 capsule (50,000 Units total) by mouth every 7 days. fexofenadine (REINA) 180 MG tablet Take 1 tablet (180 mg total) by mouth daily. furosemide (LASIX) 20 MG tablet Take 1 tablet (20 mg total) by mouth as needed. lamoTRIgine (LaMICtal) 100 MG tablet Take 1 tablet (100 mg total) by mouth daily. lisdexamfetamine (VYVANSE) 20 MG capsule Take 1 capsule (20 mg total) by mouth every morning. Max Daily Amount: 20 mg meclizine (ANTIVERT) 25 mg tablet Take 1 tablet (25 mg total) by mouth 3 (three) times daily as needed for dizziness. omeprazole (PriLOSEC OTC) 20 MG tablet Take 1 tablet (20 mg total) by mouth daily. propranoloL (INDERAL) 40 MG tablet Take 1 tablet (40 mg total) by mouth daily Takes 40mg daily. tamsulosin (FLOMAX) 0.4 mg cap 24 hr capsule Take 1 capsule (0.4 mg total) by mouth daily for 30 days. 30 capsule 03/19/2025 04/18/2025 cefUROXime (CEFTIN) 500 MG tablet Take 1 tablet (500 mg total) by mouth 2 (two) times daily for 7 days. 14 tablet 03/18/2025 03/25/2025 oxyCODONE (ROXICODONE) 5 MG immediate release tablet Take 1 tablet (5 mg total) by mouth every 4 (four) hours as needed for up to 10 days Look-alike/S ound-alike medication. Max Daily Amount: 30 mg 8 tablet 03/18/2025 03/28/2025 documented as of this encounter H&P Notes * Angle Davis MD - 03/17/2025 7:12 PM EDT Chief complaint Left flank pain History Of Present Illness Lea Perez is a 39 y.o. female presenting with left flank pain. 39-year-old female with no major medical problem no history of kidney stones patient presented at [facility] facility because of left flank pain patient was nausea Patient been evaluated at [facility] facility was found of obstructing kidney stone started on IV fluid IV antibiotics transferred to [facility] for urology evaluation Past Medical History She has no past medical history on file. Surgical History She has no past surgical history on file. Social History She has no history on file for tobacco use, alcohol use, and drug use. Family History No major disease Allergies Patient has no known allergies. Medications No current outpatient medications Review of Systems Review of Systems General no fever or chills Head no headache or dizziness Eyes no change in vision Ears no earache Nose no epistaxis Throat no sore throat Respiratory shortness of breath no cough Cardiac no chest pain no palpitation GI nausea no vomiting Urinary no hematuria Musculoskeletal left flank pain Neurological no focal numbness or weakness Skin no new rashes Endocrine no heat or cold intolerance Last Recorded Vitals There were no vitals taken for this visit. Physical Exam Head atraumatic normocephalic Pupils round and reactive Eyes no conjunctival injection or discharge Ears no discharge Nose no bleeding or discharge Mouth dry Neck supple f full range of motion Chest clear to auscultation with crackle rhonchi Heart S1 and S2 healed regular rhythm Abdomen soft audible bowel sound no tenderness no guarding Extremities no edema erythema or tenderness Neurological patient alert awake move extremities Psychiatric no anxiety Skin no apparent rashes Endocrine no thyromegaly tenderness General Patient in bed mild distress Diagnostic Results No visits with results within 1 Day(s) from this visit. Latest known visit with results is: No results found for any previous visit. No image results found. Assessment & Plan Principal Problem: Kidney stone #1 obstructing kidney stone/left ureteral stone Patient admitted for urology evaluation start IV fluid IV antibiotic n.p.o. after midnight #2 dehydration start IV fluid monitor input and output monitor kidney function #3 UTI will start IV Rocephin IV fluid urinalysis ordered #4 GI prophylaxis Pepcid #5 DVT prophylaxis compression boots Plan discussed with patient chart was reviewed expect length of stay more than 2 midnight expect the patient will be discharged home when medically stable Time spent 45-minute Electronically signed by: Angle Davis MD, 03/17/2025 at 7:12 PM documented in this encounter Consult Notes * Jerrod Pollard MD - 03/18/2025 7:11 AM EDT Consults Urology consultation Consulting physician: Jerrod Pollard MD Requesting physician: Angle Davis MD Reason for consultation: Left ureteral stone History of Present Illness: Lea Perez is a 39 y.o. female with a history of bipolar disorder and HTN who was transferred[facility] emergency room in [place] and admitted for a left ureteral stone.This is her first stone episode. She presented with left flank pain and nausea. A CT scan showed a 2 mm left proximal ureteral stone. Labs included WBC and creatinine 0.6. She started Rocephin empirically. She feels better currently. They have not strained the urine. Her is at the bedside. Past Medical History: She has no past medical history on file. Bipolar disorder, hypertension Past Surgical History: She has a past surgical history that includes Tubal ligation. Social History: She reports that she has never smoked. She has never used smokeless tobacco. She reports that she does not use drugs. No history on file for alcohol use. 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 Allergies: Penicillins Medications: Medications Prior to Admission Medication Sig Dispense Refill Last Dose/Taking amLODIPine (NORVASC) 5 MG tablet Take 1 tablet (5 mg total) by mouth daily. 03/16/2025 Morning aspirin 81 MG EC tablet Take 1 tablet (81 mg total) by mouth daily. Past Month Morning cholecalciferol, vitamin D3, 25 mcg (1,000 unit) capsule Take 2 capsules (2,000 Units total) by mouth daily. 03/16/2025 Morning desvenlafaxine (PRISTIQ) 50 MG 24 hr tablet Take 1 tablet (50 mg total) by mouth daily. 03/16/2025 Morning ergocalciferol (Vitamin D2) 1,250 mcg (50,000 unit) capsule Take 1 capsule (50,000 Units total) by mouth every 7 days. Past Week Morning fexofenadine (REINA) 180 MG tablet Take 1 tablet (180 mg total) by mouth daily. 03/16/2025 Morning furosemide (LASIX) 20 MG tablet Take 1 tablet (20 mg total) by mouth as needed. Past Month Morning lamoTRIgine (LaMICtal) 100 MG tablet Take 1 tablet (100 mg total) by mouth daily. 03/16/2025 Morning lisdexamfetamine (VYVANSE) 20 MG capsule Take 1 capsule (20 mg total) by mouth every morning. Max Daily Amount: 20 mg 03/16/2025 Morning meclizine (ANTIVERT) 25 mg tablet Take 1 tablet (25 mg total) by mouth 3 (three) times daily as needed for dizziness. 03/16/2025 Morning omeprazole (PriLOSEC OTC) 20 MG tablet Take 1 tablet (20 mg total) by mouth daily. 03/16/2025 Morning propranoloL (INDERAL) 40 MG tablet Take 1 tablet (40 mg total) by mouth daily Takes 40mg daily. 03/16/2025 Morning Review of Systems General: No fever or weight loss Cardiovascular: No chest pain or palpitations Respiratory: No shortness of breath or cough Gastrointestinal: Had left flank pain and nausea, currently better Genitourinary: No dysuria or gross hematuria Vitals: Blood pressure 98/60, pulse 58, temperature 97 ??F (36.1 ??C), temperature source Oral, resp. rate 16, SpO2 95%. Physical Exam General: No acute distress, sitting up in bed, pleasant, appears comfortable Cardiovascular: Heart regular rate and rhythm Respiratory: Breathing even and unlabored Psychological: Mood and affect normal Relevant Results: See HPI Assessment & Plan Principal Problem: Kidney stone 39 y.o. female with a history of bipolar disorder and HTN who was admitted for a left ureteral stone. This is her first stone episode. A CT scan at [facility] showed a 2 mm left proximal ureteral stone. She started Rocephin empirically. We discussed management options for the small left ureteral stone including trial of passage with tamsulosin or left ureteroscopy with basket stone extraction, possible laser lithotripsy, and stent. She feels better and we agree on trial of passage. Plan: Start tamsulosin. Strain urine. Send home with a strainer. No urologic intervention planned today. She may be discharged home from a urologic standpoint when deemed appropriate by the hospitalist. She may follow-up in about 3 weeks. Electronically signed by Jerrod Pollrad MD 03/18/2025 at 7:11 AM documented in this encounter Miscellaneous Notes * Documentation Clarification - Angle Davis MD - 03/18/2025 2:20 PM EDT CLINICAL DOCUMENTATION CLARIFICATION FORM: Dear Provider: Dr. Davis Date / Time: 03/18/2025 3:14 PM Please exercise your independent, professional judgment in responding to the clarification form. Clinical indicators are provided on the bottom of this form for your review Please check appropriate box(es) to clarify if the following diagnosis has been ruled in our ruled out: UTI [x] Ruled in UTI [] Ruled out UTI [] Other: (please enter/write your response) [] Unable to determine For continuity of documentation, please document condition throughout progress notes and discharge summary. Thank You. To be completed by CDI/Coding staff for Provider review: Present Clinical Indicators - Signs / Symptoms / Labs Results and Location in Medical Record Clinical Indicators - Signs / Symptoms / Labs Results and Location in Medical Record UTI 03/17/25: H&P: UTI will start IV Rocephin IV fluid urinalysis ordered 03/18/25: dc note: Rule out UTI Flank pain 03/17/25: H&P: female presenting with left flank pain. Risk Factors Results and Location in Medical Record Kidney stone 03/17/25: H&P: obstructing kidney stone/left ureteral stone Dehydration 03/17/25: H&&P: dehydration Treatments Results and Location in Medical Record Consult 03/17/25:orders: urology consult IV fluids 03/17/25: orders: NS IV infusion IV ABX 03/17/25: orders: Rocephin 2gm IV Urinalysis 03/17/25: orders: Urinalysis with Microscopic CDS/Account Collector Signature: Malou Hannah Phone #: [phone] Date/Time: 03/18/2025 3:14 PM This is a permanent part of the Medical Record 2023 [facility] Reviewed: 07/2023 * Plan of Care - Racquel Worthington RN - 03/18/2025 9:37 AM EDT Problem: Pain Goal: Patient's pain/discomfort is manageable Description: Assess and monitor patient's pain using appropriate pain scale. Collaborate with interdisciplinary team and initiate plan and interventions as ordered. Re-assess patient's pain level after pain management intervention. Outcome: Progressing Problem: Safety Goal: Patient will be injury free during hospitalization Description: Assess and monitor vitals signs, neurological status including level of consciousness and orientation. Assess patient's risk for falls and implement fall prevention plan of care and interventions per hospital policy. Ensure arm band on, uncluttered walking paths in room, adequate room lighting, call light and overbed table within reach, bed in low position, wheels locked, side rails up per policy, and non-skid footwear provided. Outcome: Progressing Problem: Potential for Developing a Blood Clot Goal: Tissue perfusion is adequate - venous Description: Assess and monitor skin color and temperature, skin integrity, pulses, capillary refill, edema, pain in extremities, Homans' sign, labs (D- dimer), and diagnostic tests (ultrasound, CT scan, VQ scan). Monitor for signs and symptoms of deep vein thrombosis (swelling of calf/thigh, redness, pain, tenderness). Monitor for signs and symptoms of pulmonary embolism (dyspnea, tachypnea, tachycardia). Collaborate with interdisciplinary team and initiate plans and interventions as needed Outcome: Progressing Problem: Daily Care Goal: Daily care needs are met Description: Assess and monitor ability to perform self care and identify potential discharge needs. Outcome: Progressing Problem: Potential for Infection Goal: Remains infection free Description: Assess and monitor vital signs, skin (color, moisture, integrity, turgor), respiratorystatus, urinary and gastrointestinal status, and labs (WBC, cultures). Administer antibiotics and antipyretics as ordered. Ensure aseptic care of all intravenous lines, invasive tubes/drains and wounds. Monitor for signs and symptoms of infection (redness, warmth, discharge, increased body temperature). Wash hands properly before and after each patient care activity. Follow isolation guidelines per hospital protocol/policy. Collaborate with interdisciplinary team and initiate plan and interventions as ordered. Outcome: Progressing Problem: Psychosocial Needs Goal: Demonstrates ability to cope with hospitalization/illness Description: Assess and monitor patients ability to cope with his/her illness. Outcome: Progressing Goal: Collaborate with patient/family/caregiver to identify patient specific goals for this hospitalization Outcome: Progressing Problem: Anxiety Goal: Anxiety is at manageable level Description: Assess and monitor patient's anxiety level. Monitor for signs and symptoms of anxiety both physical and emotional (heart palpitations, chest pain, shortness of breath, headaches, nausea,feeling jumpy, restlessness, irritable, apprehensive). Collaborate with interdisciplinary team and initiate plan and interventions as ordered. Outcome: Progressing Problem: Inadequate Coping Goal: Demonstrates ability to cope effectively Description: Patient is able to verbalize feelings related to emotional state. Outcome: Progressing Goal: Verbalizes adaptive coping mechanisms Description: Able to verbalize adaptive coping mechanisms such as physical activity, distraction, and deep breathing exercises. Outcome: Progressing Goal: Verbalizes personal strengths Description: Spend time with the patient using empathy and active listening skills. Outcome: Progressing Problem: Progressive Mobility Goal: BMAT Level 1 - With full mechanical lifting assistance: Outcome: Progressing Goal: BMAT Level 2 - With 2-person and/or mechanical lifting assistance: Outcome: Progressing Goal: BMAT Level 3 - With 1 to 2-person and/or mechanical lifting assistance: Outcome: Progressing Goal: BMAT Level 4 - With 1-person assistance or mobility aid as needed (walker, cane, crutches): Outcome: Progressing Problem: Discharge Barriers Goal: Patient's discharge needs are met Description: Collaborate with interdisciplinary team and initiate plans and interventions as needed. Outcome: Progressing Problem: Risk for Falls Goal: No falls during hospitalization Description: Patient will not fall during hospitalization. Outcome: Progressing Problem: Knowledge Deficit Goal: Knowledge - personal safety Description: Patient will verbalize understanding of fall prevention. Outcome: Progressing * Plan of Care - Devin Arevalo RN - 03/18/2025 6:30 AM EDT Problem: Pain Goal: Patient's pain/discomfort is manageable Description: Assess and monitor patient's pain using appropriate pain scale. Collaborate with interdisciplinary team and initiate plan and interventions as ordered. Re-assess patient's pain level after pain management intervention. Outcome: Progressing Problem: Safety Goal: Patient will be injury free during hospitalization Description: Assess and monitor vitals signs, neurological status including level of consciousness and orientation. Assess patient's risk for falls and implement fall prevention plan of care and interventions per hospital policy. Ensure arm band on, uncluttered walking paths in room, adequate room lighting, call light and overbed table within reach, bed in low position, wheels locked, side rails up per policy, and non-skid footwear provided. Outcome: Progressing Problem: Potential for Developing a Blood Clot Goal: Tissue perfusion is adequate - venous Description: Assess and monitor skin color and temperature, skin integrity, pulses, capillary refill, edema, pain in extremities, Homans' sign, labs (D- dimer), and diagnostic tests (ultrasound, CT scan, VQ scan). Monitor for signs and symptoms of deep vein thrombosis (swelling of calf/thigh, redness, pain, tenderness). Monitor for signs and symptoms of pulmonary embolism (dyspnea, tachypnea, tachycardia). Collaborate with interdisciplinary team and initiate plans and interventions as needed Outcome: Progressing Problem: Daily Care Goal: Daily care needs are met Description: Assess and monitor ability to perform self care and identify potential discharge needs. Outcome: Progressing Problem: Potential for Infection Goal: Remains infection free Description: Assess and monitor vital signs, skin (color, moisture, integrity, turgor), respiratorystatus, urinary and gastrointestinal status, and labs (WBC, cultures). Administer antibiotics and antipyretics as ordered. Ensure aseptic care of all intravenous lines, invasive tubes/drains and wounds. Monitor for signs and symptoms of infection (redness, warmth, discharge, increased body temperature). Wash hands properly before and after each patient care activity. Follow isolation guidelines per hospital protocol/policy. Collaborate with interdisciplinary team and initiate plan and interventions as ordered. Outcome: Progressing Problem: Psychosocial Needs Goal: Demonstrates ability to cope with hospitalization/illness Description: Assess and monitor patients ability to cope with his/her illness. Outcome: Progressing Goal: Collaborate with patient/family/caregiver to identify patient specific goals for this hospitalization Outcome: Progressing Problem: Anxiety Goal: Anxiety is at manageable level Description: Assess and monitor patient's anxiety level. Monitor for signs and symptoms of anxiety both physical and emotional (heart palpitations, chest pain, shortness of breath, headaches, nausea,feeling jumpy, restlessness, irritable, apprehensive). Collaborate with interdisciplinary team and initiate plan and interventions as ordered. Outcome: Progressing Problem: Inadequate Coping Goal: Demonstrates ability to cope effectively Description: Patient is able to verbalize feelings related to emotional state. Outcome: Progressing Goal: Verbalizes adaptive coping mechanisms Description: Able to verbalize adaptive coping mechanisms such as physical activity, distraction, and deep breathing exercises. Outcome: Progressing Goal: Verbalizes personal strengths Description: Spend time with the patient using empathy and active listening skills. Outcome: Progressing Problem: Progressive Mobility Goal: BMAT Level 4 - With 1-person assistance or mobility aid as needed (walker, cane, crutches): Outcome: Progressing Problem: Discharge Barriers Goal: Patient's discharge needs are met Description: Collaborate with interdisciplinary team and initiate plans and interventions as needed. Outcome: Progressing Problem: Risk for Falls Goal: No falls during hospitalization Description: Patient will not fall during hospitalization. Outcome: Progressing Problem: Knowledge Deficit Goal: Knowledge - personal safety Description: Patient will verbalize understanding of fall prevention. Outcome: Progressing * Plan of Care - Kassandra Spain RN - 03/18/2025 5:48 AM EDT Problem: Pain Goal: Patient's pain/discomfort is manageable Description: Assess and monitor patient's pain using appropriate pain scale. Collaborate with interdisciplinary team and initiate plan and interventions as ordered. Re-assess patient's pain level after pain management intervention. Intervention: Include patient/family/caregiver in decisions related to pain management Recent Flowsheet Documentation Taken 03/17/2025 192 by Kassandra Spain RN Patient's Stated Comfort Goal: 3 Problem: Safety Goal: Patient will be injury free during hospitalization Description: Assess and monitor vitals signs, neurological status including level of consciousness and orientation. Assess patient's risk for falls and implement fall prevention plan of care and interventions per hospital policy. Ensure arm band on, uncluttered walking paths in room, adequate room lighting, call light and overbed table within reach, bed in low position, wheels locked, side rails up per policy, and non-skid footwear provided. Intervention: Assess patient's risk for falls and implement fall prevention plan of care per policy Recent Flowsheet Documentation Taken 03/18/2025 0043 by Kassandra Spain RN History of Fallin Secondary Diagnosis: 0 Ambulatory Aids: 0 Intravenous Therapy/Intravenous Access: 20 Gait/Transferrin Mental Status: 0 Score: 20 Taken 03/17/2025 2300 by Kassandra Spain RN History of Fallin Secondary Diagnosis: 0 Ambulatory Aids: 0 Intravenous Therapy/Intravenous Access: 20 Gait/Transferrin Mental Status: 0 Score: 20 documented in this encounter Plan of Treatment Not on file documented as of this encounter Procedures Procedure Name Priority Date/Time Associated Diagnosis Comments PROBNP Routine 03/18/2025 7:09 AM EDT MAGNESIUM Routine 03/18/2025 7:09 AM EDT LIPASE Routine 03/18/2025 7:09 AM EDT LIPID PANEL Routine 03/18/2025 7:09 AM EDT COMPREHENSIVE METABOLIC PANEL Routine 03/18/2025 7:09 AM EDT CBC HEMOGRAM (SJ-BKR) Routine 03/18/2025 6:32 AM EDT PT/INR, PTT Routine 03/18/2025 6:32 AM EDT LACTIC ACID WITH REFLEX Routine 03/18/2025 6:32 AM EDT HIGH SENSITIVITY TROPONIN I Routine 03/18/2025 6:32 AM EDT HEMOGLOBIN A1C Routine 03/18/2025 6:32 AM EDT FS_MODEL_IP_ECG 12-LEAD Routine 03/17/2025 8:21 PM EDT CREATINE KINASE (CK) Routine 03/17/2025 8:08 PM EDT EKG-SCANNED 03/17/2025 documented in this encounter Results * (ABNORMAL) PROBNP (03/18/2025 7:09 AM EDT) [facility] Signature ProBNP (pg/mL) 120(H) 16 - 105 pg/mL 03/18/2025 7:41 AM EDT [facility] Blood Venipuncture / Unknown 03/18/2025 7:09 AM EDT 03/18/2025 7:09 AM EDT Narrative [facility] - 03/18/2025 7:41 AM EDT As of November 01, 2024: NT-ProBNP is a new test on our [employer] Immunoassay analyzer. Please review new age and gender specific reference ranges. us Angle Davis MD LAB BLOOD ORDERABLES Final Resu lt Performing Organization Address City/[facility]/ZIP Co de Phone Number [facility] [address] [phone] * Magnesium (03/18/2025 7:09 AM EDT) Magnesium 1.8 1.6 - 2.6 mg/dL 03/18/2025 7:41 AM EDT [facility] Blood Venipuncture / Unknown 03/18/2025 7:09 AM EDT 03/18/2025 7:09 AM EDT us Angle Davis MD LAB BLOOD ORDERABLES Final Resu lt Performing Organization Address [facility] Co de Phone Number [facility] [address] [phone] * (ABNORMAL) Lipid panel (03/18/2025 7:09 AM EDT) Triglycerides 113 <=149 mg/dL 03/18/2025 7:41 AM EDT [facility] Comment: Normal: < 150 mg/dL Borderline High: 150 to 199 mg/dL High: 200 to 499 mg/dL Very High: >/= 500 mg/dL Cholesterol 143 100 - 199 mg/dL 03/18/2025 7:41 AM EDT [facility] Comment: Child: Desirable: < 170 mg/dL Borderline: 170 to 199 mg/dL High: >/= 200 mg/dL Adult: Desirable: < 200 mg/dL Borderline: 200 to 239 mg/dL High: >/= 240 mg/dL HDL Cholesterol 25 See Comment mg/dL 03/18/2025 7:41 AM EDT [facility] Comment: Major risk factor for heart disease: < 40 mg/dL Negative risk factor for heart disease: >/= 60 mg/dL LDL Cholesterol, Calculated 95 0 - 100 mg/dL 03/18/2025 7:41 AM EDT [facility] Comment: Unable to calculate Optimal: < 100 mg/dL Near or above optimal: 100 to 129 mg/dL Borderline high: 130 to 159 mg/dL High: 160 to 189 mg/dL Very high: >/= 190 mg/dL Based on AHA/NCEP Guidelines LDl/HDL Ratio 4 0 - 4 03/18/2025 7:41 AM EDT [facility] Comment:Unable to calculate. Cholesterol/HDL ratio 5.7(H) 0.0 - 5.0 mg/dL 03/18/2025 7:41 AM EDT [facility] VLDL Cholesterol 22.6 5 - 40 mg/dL 03/18/2025 7:41 AM EDT [facility] Comment:Unable to calculate Blood Venipuncture / Unknown 03/18/2025 7:09 AM EDT 03/18/2025 7:09 AM EDT Angle Davis MD LAB BLOOD ORDERABLES Final Resu lt Performing Organization Address City/[facility]/ZIP Co de Phone Number [facility] [address] [phone] * Lipase (03/18/2025 7:09 AM EDT) Lipase 24 <=60 U/L 03/18/2025 7:41 AM EDT [facility] Blood Venipuncture / Unknown 03/18/2025 7:09 AM EDT 03/18/2025 7:09 AM EDT Angle Davis MD LAB BLOOD ORDERABLES Final Resu lt [facility] [address] [phone] * (ABNORMAL) Comprehensive metabolic panel (03/18/2025 7:09 AM EDT) Sodium 141 136 - 145 meq/L 03/18/2025 7:41 AM EDT [facility] Potassium 4.1 3.4 - 5.1 meq/L 03/18/2025 7:41 AM [facility] Chloride 111 98 - 112 meq/L 03/18/2025 7:41 AM [facility] CO2 25 22 - 29 meq/L 03/18/2025 7:41 AM [facility] Calcium 8.4 8.4 - 10.2 mg/dL 03/18/2025 7:41 AM [facility] Glucose 84 74 - 100 mg/dL 03/18/2025 7:41 AM [facility] BUN 6.2(L) 7.0 - 18.7 mg/dL 03/18/2025 7:41 AM [facility] Creatinine 0.63 0.57 - 1.11 mg/dL 03/18/2025 7:41 AM [facility] BUN/Creatinine 10 8 - 20 03/18/2025 7:41 AM [facility] eGFR (mL/min/1.73m2) 116 >=60 mL/min/1. 73m2 03/18/2025 7:41 AM [facility] Comment:ESTIMATED GFR IS NOT ACCURATE CREATININE CLEARANCE IN PREDICTING GLOMERULAR FILTRATION RATE. ESTIMATED GFR IS NOT APPLICABLE FOR DIALYSIS PATIENTS. Albumin 3.1(L) 3.5 - 5.0 g/dL 03/18/2025 7:41 AM [facility] Alkaline Phosphatase 73 40 - 150 U/L 03/18/2025 7:41 AM [facility] ALT 7 <=34 U/L 03/18/2025 7:41 AM [facility] Comment: ALT2 reagent used for testing does not contain P5P supplementation and therefore may miss ALT elevations in patients with B6 deficiency. This population may be as high as 10% in the [place], with risk factors including malabsorption, drug interactions, and alcoholic hepatitis. AST 13 11 - 34 U/L 03/18/2025 7:41 AM [facility] Comment: AST2 reagent used for testing does not contain P5P supplementation and therefore may miss AST elevations in patients with B6 deficiency. This population may be as high as 10% in the [place], with risk factors including malabsorption, drug interactions, and alcoholic hepatitis. Total Bilirubin 0.3 0.2 - 1.2 mg/dL 03/18/2025 7:41 AM EDT [facility] Protein, Total 6.0(L) 6.4 - 8.3 g/dL 03/18/2025 7:41 AM EDT [facility] Globulin 2.9 2.5 - 4.1 g/dL 03/18/2025 7:41 AM EDT [facility] Anion Gap 9 4 - 12 03/18/2025 7:41 AM EDT [facility] A/G Ratio 1.1 0.7 - 1.9 03/18/2025 7:41 AM EDT [facility] Osmolality Calc 278.1 mOsm/kg 7:41 AM EDT [facility] Blood Venipuncture / Unknown 03/18/2025 7:09 AM EDT 03/18/2025 7:09 AM EDT Angle Davis MD LAB BLOOD ORDERABLES Final Resu lt [facility] [address] [phone] * PT/INR, PTT (03/18/2025 6:32 AM EDT) aPTT 24.9 22.0 - 32.0 seconds 03/18/2025 7:36 AM EDT [facility] Protime 10.2 9.0 - 12.0 seconds 03/18/2025 7:36 AM EDT [facility] INR 0.91 0.80 - 1.10 03/18/2025 7:36 AM EDT [facility] Blood Venipuncture / Unknown 03/18/2025 6:32 AM EDT 03/18/2025 7:10 AM EDT us Angle Davis MD LAB BLOOD ORDERABLES Final Resu lt Performing Organization Address City/[facility]/ZIP Co de Phone Number [facility] [address] [phone] * Lactic Acid with reflex (SJ) (03/18/2025 6:32 AM EDT) Lactic Acid Level (mmol/L) 0.7 0.5 - 2.2 mmol/L 03/18/2025 7:37 AM EDT [facility] Blood Venipuncture / Unknown 03/18/2025 6:32 AM EDT 03/18/2025 7:09 AM EDT [facility] - 03/18/2025 7:37 AM EDT Specimen slightly hemolyzed Angle Davis MD LAB BLOOD ORDERABLES Final Resu lt Performing Organization Address [facility]/ZIP Co de Phone Number [facility] [address] [phone] * High Sensitivity Troponin I (03/18/2025 6:32 AM EDT) Pathologist [facility] Troponin I High Sensitivity (pg/mL) <5.0 <=14 pg/mL 03/18/2025 7:43 AM EDT [facility] Blood Venipuncture / Unknown 03/18/2025 6:32 AM EDT 03/18/2025 7:09 AM EDT [facility] - 03/18/2025 7:43 AM EDT Applicable to [facility] only. Effective September 04 the lab will begin using a new chemistry analyzer. HsTroponin methodology, reference ranges and critical values have changed. Angle Davis MD LAB BLOOD ORDERABLES Final Resu lt [facility] [address] [phone] * Hemoglobin A1c (03/18/2025 6:32 AM EDT) Hemoglobin A1C 4.9 4.0 - 5.6 % 03/18/2025 7:50 AM EDT [facility] Comment: Hemoglobin A1C levels are related to mean glucose during the preceding 2-3 months. Less than 7% demonstrates glycemic control in diabetic patients. Hemoglobin AlC % Suggested Diagnosis > or = 6.5 Diabetic 5.7 - 6.4 Prediabetic <5.7 Non-diabetic eAVG Glucose 93.93 70 - 126 mg/dL 03/18/2025 7:50 AM EDT [facility] Blood Venipuncture / Unknown 03/18/2025 6:32 AM EDT 03/18/2025 7:10 AM EDT us Agnle Davis MD LAB BLOOD ORDERABLES Final Resu lt [facility] [address] [phone] * CBC - Hemogram (SJ-BKR) (03/18/2025 6:32 AM EDT) WBC 7.9 4.0 - 10.0 K/ L 03/18/2025 7:17 AM EDT [facility] RBC 4.12 3.93 - 5.22 M/ L 03/18/2025 7:17 AM EDT [facility] Hemoglobin 12.8 11.2 - 15.7 GM/DL 03/18/2025 7:17 AM EDT [facility] Hematocrit 37.9 34.1 - 44.9 % 03/18/2025 7:17 AM EDT [facility] MCV 92 79 - 95 fL 03/18/2025 7:17 AM EDT [facility] MCH 31.1 25.6 - 32.2 pg 03/18/2025 7:17 AM EDT [facility] MCHC 33.8 32.2 - 35.5 GM/DL 03/18/2025 7:17 AM EDT [facility] RDW 12.2 11.7 - 14.4 % 03/18/2025 7:17 AM EDT [facility] Platelets 211 140 - 375 K/CU MM 03/18/2025 7:17 AM EDT [facility] MPV 10.0 9.4 - 12.3 fL 03/18/2025 7:17 AM EDT [facility] Blood Venipuncture / Unknown 03/18/2025 6:32 AM EDT 03/18/2025 7:10 AM EDT Angle Davis MD LAB BLOOD ORDERABLES Final Resu lt [facility] [address] [phone] * ECG 12 lead (03/17/2025 8:21 PM EDT) VENTRICULAR RATE EKG/MIN 57 BPM GE MUSE ATRIAL RATE (MCT) [address] Interval 186 ms GE MUSE QRS-INTERVAL (MSEC) 102 ms GE MUSE QT Interval 434 ms GE MUSE QTC Interval 422 ms GE MUSE P [place] 58 degrees GE MUSE R AXIS (MCT) 18 degrees GE MUSE T Wave [place] 37 degrees GE MUSE [place] Diagnosis Sinus bradycardia Cannot rule out Anterior infarct , age undetermined Abnormal ECG No previous ECGs available Confirmed by Dora Dow ([id number]) on 03/22/2025 5:38:11 PM GE MUSE 03/17/2025 8:21 PM EDT 03/22/2025 5:38 PM EDT Angle Davis MD ECG ORDERABLES Final Result GE MUSE * Creatine Kinase (CK) (03/17/2025 8:08 PM EDT) Total CK 30 29 - 168 U/L 03/17/2025 8:41 PM EDT [facility] Blood Venipuncture / Unknown 03/17/2025 8:08 PM EDT 03/17/2025 8:20 PM EDT Angle Davis MD LAB BLOOD ORDERABLES Final Resu lt [facility] [address] [phone] * EKG-SCANNED (03/17/2025) Narrative 03/17/2025 Ordered by an unspecified provider. us Default Scanning Provider SCAN ORDERS Final Result documented in this encounter Visit Diagnoses Diagnosis Kidney stone- Primary Calculus of kidney documented in this encounter Admitting Diagnoses Diagnosis Kidney stone Calculus of kidney documented in this encounter Administered Medications Inactive Administered Medications - up to 3 most recent administrations Medication Order MAR Action Action Date Dose Rate Site acetaminophen (TYLENOL) tablet 650 mg 650 mg Every 6 hours PRN, oral, mild pain (1-3), headache, Starting on 03/17/25 at 1909, Do not exceed 4000 mg of acetaminophen in 24 hours from all sources 1st line analgesic ALPRAZolam (XANAX) tablet 0.5 mg 0.5 mg Every 4 hours PRN, oral, anxiety, Starting on 03/17/25 at 1912 cefUROXime (CEFTIN) tablet 500 mg 500 mg 2 times daily, oral, First dose on 03/18/25 at 1100, Please choose an indication: Urinary Tract Infection Given 03/18/2025 11:35 AM EDT 500 mg docusate sodium (COLACE) capsule 100 mg 100 mg 2 times daily PRN, oral, constipation, Starting on 03/17/25 at 1909, 2nd line for constipation Bowel Regimen - for prevention of constipation. famotidine (PEPCID) tablet 20 mg 20 mg 2 times daily, oral, First dose on 03/17/25 at 2100, Pharmacist to renally dose if CrCl is less than 50 mL/min or on CRRT. Given 03/18/2025 8:51 AM EDT 20 mg Given 03/17/2025 8:53 PM EDT 20 mg hydrALAZINE (APRESOLINE) injection 10 mg 10 mg Every 4 hours PRN, intravenous, hypertension (sbp greater than 160), Starting on 03/17/25 at 1909, Hold if SBP < 100 mmHg, DBP < 50 mmHg, or patient is on pressor. Look-alike/Sound-alike medication HYDROmorphone (DILAUDID) injection 1 mg 1 mg Every 4 hours PRN, intravenous, moderate pain (4-6), severe pain (7-10), Starting on 03/17/25 at 2327, Dose per provider; not dose reduced per hospital policy Given 03/18/2025 8:57 AM EDT 1 mg Given 03/18/2025 3:53 AM EDT 1 mg Ri ght Arm Given 03/17/2025 11:38 PM EDT 1 mg R ight Arm melatonin tablet 6 mg 6 mg Every Night PRN, oral, insomnia, Starting on 03/17/25 at 1909 morphine injection 3 mg 3 mg Every 4 hours PRN, intravenous, severe pain (7-10), Starting on 03/17/25 at 2020, 3rd line analgesic. Give only if inadequate response (less than 50% reduction in pain score) 60 minutes after administration of 2nd line agent. May give in addition to 1st + 2nd line analgesics (+ adjuvants if ordered) Given 03/17/2025 8:51 PM EDT 3 mg Right Arm ondansetron (ZOFRAN) injection 4 mg 4 mg Every 8 hours PRN, intravenous, nausea, vomiting, Starting on 03/17/25 at 1911, Give IV if patient is unable to take orally. 1st line If inadequate response within 60 minutes, proceed to next-line agent for same PRN reason or contact provider if no further options ordered. For IV push, give over 2 - 5 minutes. ondansetron (ZOFRAN-ODT) disintegrating tablet 4 mg 4 mg Every 8 hours PRN, oral, nausea, vomiting, Starting on 03/17/25 at 1911, 1st line. If inadequate response within 60 minutes, proceed to next-line agent for same PRN reason or contact provider if no further options ordered. oxyCODONE (ROXICODONE) immediate release tablet 5 mg 5 mg Every 4 hours PRN, oral, moderate pain (4-6), Starting on 03/17/25 at 1912, Look-alike/Sound-alike medication Given 03/18/2025 1:48 PM EDT 5 mg polyethylene glycol (GLYCOLAX) packet 17 g 17 g Daily as needed, oral, constipation, Starting on 03/17/25 at 1909, 1st line for constipation Bowel Regimen - for prevention of constipation. sodium chloride 0.9 % infusion 100 mL/hr Continuous, intravenous, Starting on 03/17/25 at 1930 New Bag 03/18/2025 6:05 AM EDT 100 mL/hr 100 mL/hr Right Arm sodium chloride flush 10 mL 10 mL As needed, intravenous, line care, Starting on Tue03/17/25 at 1909, Every 8 hours and PRN to flush tamsulosin (FLOMAX) capsule 0.4 mg 0.4 mg Daily, oral, First dose on Tue03/18/25 at 0900, * DO NOT CRUSH THIS DOSAGE FORM * Given 03/18/2025 8:51 AM EDT 0.4 mg documented in this encounter Active and Recently Administered Medications Times are shown in EDT. Scheduled Medication Order 03/16/2025 03/17/2025 03/18/2025 cefUROXime (CEFTIN) tablet 500 mg 500 mg 2 times daily, oral, First dose on Tue03/18/25 at 1100, Please choose an indication: Urinary Tract Infection 1135 (Given - Provid er: Racquel Worthington RN) famotidine (PEPCID) tablet 20 mg 20 mg 2 times daily, oral, First dose on Tue03/17/25 at 2100, Pharmacist to renally dose if CrCl is less than 50 mL/min or on CRRT. 2052 (Given - Provider: Kassandra Spain RN) 0851 (Given - Provider: Racquel Worthington RN) tamsulosin (FLOMAX) capsule 0.4 mg 0.4 mg Daily, oral, First dose on Tue03/18/25 at 0900, * DO NOT CRUSH THIS DOSAGE FORM * 0851 (Given - Provid er: Racquel Worthington RN) Continuous Medication Order 03/16/2025 03/17/2025 03/18/2025 sodium chloride 0.9 % infusion 100 mL/hr Continuous, intravenous, Starting on Tue03/17/25 at 1930 0605 (New Bag - Prov ider: Devin Arevalo RN) PRN Medication Order 03/16/2025 03/17/2025 03/18/2025 acetaminophen (TYLENOL) tablet 650 mg 650 mg Every 6 hours PRN, oral, mild pain (1-3), headache, Starting on Tue03/17/25 at 1909, Do not exceed 4000 mg of acetaminophen in 24 hours from all sources 1st line analgesic ALPRAZolam (XANAX) tablet 0.5 mg 0.5 mg Every 4 hours PRN, oral, anxiety, Starting on 03/17/25 at 191 docusate sodium (COLACE) capsule 100 mg 100 mg 2 times daily PRN, oral, constipation, Starting on 03/17/25 at 190, 2nd line for constipation Bowel Regimen - for prevention of constipation. hydrALAZINE (APRESOLINE) injection 10 mg 10 mg Every 4 hours PRN, intravenous, hypertension (sbp greater than 160), Starting on 03/17/25 at 190, Hold if SBP < 100 mmHg, DBP < 50 mmHg, or patient is on pressor. Look-alike/Sound-alike medication HYDROmorphone (DILAUDID) injection 1 mg 1 mg Every 4 hours PRN, intravenous, moderate pain (4-6), severe pain (7-10), Starting on 03/17/25 at 2327, Dose per provider; not dose reduced per hospital policy 2338 (Given - Provider: Kassandra Spain, MARCOS) 0353 (Given - Provider: Kassandra Spain, MARCOS)0857 (Given - Provider: Racquel Worthington, MARCOS) melatonin tablet 6 mg 6 mg Every Night PRN, oral, insomnia, Starting on 03/17/25 at 1908 morphine injection 3 mg (CANCELED) 3 mg Every 4 hours PRN, intravenous, severe pain (7-10), Starting on 03/17/25 at 2019, 3rd line analgesic. Give only if inadequate response (less than 50% reduction in pain score) 60 minutes after administration of 2nd line agent. May give in addition to 1st + 2nd line analgesics (+ adjuvants if ordered) 2050 (Given - Provider: Kassandra Spain, MARCOS) ondansetron (ZOFRAN) injection 4 mg(Linked Group 1) 4 mg Every 8 hours PRN, intravenous, nausea, vomiting, Starting on 03/17/25 at 191, Give IV if patient is unable to take orally. 1st line If inadequate response within 60 minutes, proceed to next-line agent for same PRN reason or contact provider if no further options ordered. For IV push, give over 2 - 5 minutes. ondansetron (ZOFRAN-ODT) disintegrating tablet 4 mg(Linked Group 1) 4 mg Every 8 hours PRN, oral, nausea, vomiting, Starting on 03/17/25 at 1910, 1st line. If inadequate response within 60 minutes, proceed to next-line agent for same PRN reason or contact provider if no further options ordered. oxyCODONE (ROXICODONE) immediate release tablet 5 mg 5 mg Every 4 hours PRN, oral, moderate pain (4-6), Starting on 03/17/25 at 191, Look-alike/Sound-alike medication 1348 (Given - Provid er: Racquel Worthington RN) polyethylene glycol (GLYCOLAX) packet 17 g 17 g Daily as needed, oral, constipation, Starting on 03/17/25 at 1908, 1st line for constipation Bowel Regimen - for prevention of constipation. sodium chloride flush 10 mL(Linked Group 2) 10 mL As needed, intravenous, line care, Starting on 03/17/25 at 190, Every 8 hours and PRN to flush Linked Groups Order Group 1: ondansetron (ZOFRAN-ODT) disintegrating tablet 4 mgJump to med 4 mg Every 8 hours PRN, oral, nausea, vomiting, Starting on 03/17/25 at 1910, 1st line. If inadequate response within 60 minutes, proceed to next-line agent for same PRN reason or contact provider if no further options ordered. Or ondansetron (ZOFRAN) injection 4 mgJump to med 4 mg Every 8 hours PRN, intravenous, nausea, vomiting, Starting on 03/17/25 at 1910, Give IV if patient is unable to take orally. 1st line If inadequate response within 60 minutes, proceed to next-line agent for same PRN reason or contact provider if no further options ordered. For IV push, give over 2 - 5 minutes. Group 2: Insert Peripheral IV (CANCELED) STAT, Once, On 03/17/25 at 1909, For 1 occurrence And Saline Lock IV (CANCELED) Routine, Once, On Tue03/17/25 at 1909, For 1 occurrence And sodium chloride flush 10 mLJump to med 10 mL As needed, intravenous, line care, Starting on 03/17/25 at 1909, Every 8 hours and PRN to flush documented in this encounter Care Teams Emergency Room Specialist Relationship Specialty Start Date End Date [facility] Jose, [facility] Jose [facility] [place] [id number] PCP - General 03/17/25 documented as of this encounter
--- OUTSIDE RECORDS SUMMARY | 2025-04-02 08:45 | XMS_ITS | Encounter Summary ---
Author Organization [facility] Address [address] [place] [address] Care Team Providers Care Electric Organ Assembler And Checker Name Role Phone Provider, No Known Primary Care Provider Unavail able Encounter Details Date Type Department Care Team (Latest Contact Info) Description 04/02/2025 8:45 AM EDT Clinical Support [facility] [address] [place] [address] [place] [address] Need for influenza vaccination; Renal stone Social History Tobacco Use Types Packs/Day Years [...] on file documented as of this encounter Progress Notes * Lorin Carrasquillo MA - 04/02/2025 8:45 AM EDT Pt presents for influenza vaccine. Administered medication in right arm, pt tolerated without complications. Venipuncture Blood Specimen Collection Venipuncture performed in right arm by Lorin Carrasquillo MA with good hemostasis. Patient tolerated the procedure well without complications. 04/02/25 Lorin Carrasquillo MA documented in this encounter Plan of Treatment Not on file documented as of this encounter Procedures Procedure Name Priority Date/Time Associated Diagnosis Comments CBC AND DIFFERENTIAL Routine 04/02/2025 8:30 AM EDT Renal stone COMPREHENSIVE METABOLIC PANEL Routine 04/02/2025 8:30 AM EDT Renal stone CONV NO TEST INDICATED Routine 8:29 AM EDT ~MICROSCOPIC EXAMINATION Routine 04/02/2025 8:29 AM EDT URINALYSIS AND MICROSCOPIC Routine 04/02/2025 8:29 AM EDT Renal stone documented in this encounter Results * (ABNORMAL) Comprehensive Metabolic Panel (04/02/2025 8:30 AM EDT) Glucose 85 70 - 99 mg/dL [facility] BUN 11 6 - 20 mg/dL [facility] Creatinine 0.55(L) 0.57 - 1.00 mg/dL [facility] EGFR Result 119 >59 mL/min/1.7 3 [facility] BUN/Creatinine Ratio 20 9 - 23 [facility] Sodium 142 134 - 144 mmol/L [facility] Potassium 3.9 3.5 - 5.2 mmol/L [facility] Chloride 104 96 - 106 mmol/L [facility] Total CO2 24 20 - 29 mmol/L [facility] Calcium 9.5 8.7 - 10.2 mg/dL [facility] Total Protein 6.8 6.0 - 8.5 g/dL [facility] Albumin 4.4 3.9 - 4.9 g/dL [facility] Globulin 2.4 1.5 - 4.5 g/dL [facility] Total Bilirubin <0.2 0.0 - 1.2 mg/dL [facility] Alkaline Phosphatase 95 41 - 116 IU/L [facility] AST (SGOT) 13 0 - 40 IU/L [facility] ALT (SGPT) 13 0 - 32 IU/L [facility] Blood 04/02/2025 8:30 AM EDT 04/02/2025 Comment:Blood Release to jose Zabala [facility] ([facility]) - 04/03/2025 9:07 AM EDT Performed at: 01 - [facility] [address] [place], [place] [id number] Supervisor Laboratory Animal Facility: Dallas George PhD, Phone: [phone] us Sarah W Semic SIDE GUIDER LAB BLOOD ORDERABLES Final R esult [facility] ([facility]ULATORY) [address] [place] [address], [facility] [address] [place] [address], * CBC & Differential (04/02/2025 8:30 AM EDT) WBC 6.3 3.4 - 10.8 x10E3/uL [facility] RBC 4.86 3.77 - 5.28 x10E6/uL [facility] Hemoglobin 14.9 11.1 - 15.9 g/dL [facility] Hematocrit 45.9 34.0 - 46.6 % [facility] MCV 94 79 - 97 fL [facility] MCH 30.7 26.6 - 33.0 pg [facility] MCHC 32.5 31.5 - 35.7 g/dL [facility] RDW 12.4 11.7 - 15.4 % [facility] Platelets 313 150 - 450 x10E3/uL [facility] Neutrophil Rel % 64 Not Estab. % [facility] Lymphocyte Rel % 25 Not Estab. % [facility] Monocyte Rel % 8 Not Estab. % [facility] Eosinophil Rel % 2 Not Estab. % [facility] Basophil Rel % 1 Not Estab. % [facility] Neutrophils Absolute 4.0 1.4 - 7.0 x10E3/uL [facility] Lymphocytes Absolute 1.6 0.7 - 3.1 x10E3/uL [facility] Monocytes Absolute 0.5 0.1 - 0.9 x10E3/uL [facility] Eosinophils Absolute 0.1 0.0 - 0.4 x10E3/uL [facility] Basophils Absolute 0.1 0.0 - 0.2 x10E3/uL [facility] Immature Granulocyte Rel % 0 Not Estab. % [facility] Immature Grans Absolute 0.0 0.0 - 0.1 x10E3/uL [facility] Blood 04/02/2025 8:30 AM EDT 04/02/2025 Comment:Blood Release to jose Zabala [facility] (AMBULATORY) - 04/03/2025 9:07 AM EDT Performed at: 01 - [address] [id number] Supervisor Laboratory Animal Facility: Dallas George PhD, Phone: [phone] us Sarah Swanson SIDE GUIDER LAB BLOOD ORDERABLES Final R esult [facility] (AMBULATORY) [address] [place], [place] [id number], [facility] [address] [place] [address], * No Test Indicated (04/02/2025 8:29 AM EDT) . Comment [facility] Comment:A urine culture good sport was received with no test indicated Dear Doctor, Alie [facility] Comment: The requisition we received for the above patient has no test indicated on the request form for one or more of the specimens submitted. The [place] Code of Federal Regulations requires a written and signed request be forwarded to the testing laboratory following the verbal order of a laboratory test. Date: ICD-9/10 Diagnosis Code(s): Physician or Authorized Designee Signature: Your signature confirms your order of the test(s) listed Required test name(s): Required test number(s): Please provide requested information and fax to to expedite testing. 04/02/2025 8:29 AM EDT 04/02/2025 Comment:Urine Release to jose Zabala [facility] (AMBULATORY) - 04/04/2025 10:07 AM EDT Performed at: - [address] [id number] Supervisor Laboratory Animal Facility: Dallas George PhD, Phone: [phone] us Sarah Swanson SIDE GUIDER LAB BLOOD ORDERABLES Final R esult [facility] (AMBULATORY) [address] [place] [address], [place] [phone] [facility] [address] [place] [address], * (ABNORMAL) Microscopic Examination - (04/02/2025 8:29 AM EDT) WBC, UA 0-5 0 - 5 /hpf [facility] RBC, UA None seen 0 - 2 /hpf [facility] Epithelial Cells (non renal) >10(A) 0 - 10 /hpf [facility] Casts None seen None seen /lpf [facility] Crystals, UA Present(A) N/A [facility] Crystal Type Calcium Oxalate N/A [facility] Bacteria, UA Many(A) None seen/Few [facility] 04/02/2025 8:29 AM EDT 04/02/2025 Comment:Urine Release to [facility] - 04/04/2025 10:07 AM EDT Performed at: 01 - [address] [id number] Supervisor Laboratory Animal Facility: Dallas George PhD, Phone: [phone] us Sarah W Seivers SIDE GUIDER URINE ORDERABLES Final Resul t [facility] [address] [place] [address], [place] [phone] [facility] [address] [place] [address], [place] [phone] * (ABNORMAL) Urinalysis With Microscopic - Urine, Clean Catch (04/02/2025 8:29 AM EDT) Pathologist [facility] Specific [place], UA 1.027 1.005 - 1.030 [facility] pH, UA 5.5 5.0 - 7.5 [facility] Color, UA Yellow Yellow [facility] Appearance, UA Cloudy(A) Clear [facility] Leukocytes, UA 1+(A) Negative [facility] Protein Trace Negative/Tra ce [facility] Glucose, UA Negative Negative [facility] Ketones Negative Negative [facility] Blood, UA 2+(A) Negative [facility] Bilirubin, UA Negative Negative [facility] Urobilinogen, UA 1.0 0.2 - 1.0 mg/dL [facility] Nitrite, UA Negative Negative [facility] Microscopic Examination See below: [facility] Comment:Microscopic was moe cated and was performed. Urine Urine specimen obtained by clean catch procedure / Unknown 04/02/2025 8:29 AM EDT 04/02/2025 Comment:Urine Release to [facility] (AMBULATORY) - 04/04/2025 10:07 AM EDT Performed at: 01 - [address] [id number] Supervisor Laboratory Animal Facility: Dallas George PhD, Phone: [phone] us Sarah W Seivers SIDE GUIDER URINE ORDERABLES Final Resul t [facility] ([facility]ORY) [address] [place] [address], [place] [phone] [facility] [address] [place] [address], [place] [phone] documented in this encounter Visit Diagnoses Diagnosis Need for influenza vaccination Need for prophylactic vaccination and inoculation against influenza Renal stone Calculus of kidney documented in this encounter Care Teams Electric Organ Assembler And Checker Relationship Specialty Start Date End Date Provider, [place] [address] PCP - General 08/03/24 documented as of this encounter
--- OUTSIDE RECORDS SUMMARY | 2025-04-08 05:33 | XMS_ITS | Clinical Summary ---
Author Organization [facility] Address [address] [place] [address] Care Team Providers Care Pot Tender Name Role Phone Tanya Argueta APRN Primary [...] day. 08/02/19 25 Active ergocalciferol 1.25 MG (88137 UT) capsule Take 1 capsule (50,000 Units) [...] 2012 [facility]-Cervical Cancer Screening 2015 [facility]-HPV/Cotest 2015 [facility]-QGOWY-25 Vaccine (1 - season) 2025 [facility]-Influenza Vaccine [...] complete this topic Insurance ELI Care Teams Pot Tender Relationship Specialty Start Date End Date Tanya Argueta APRN PCP - General Anesthesiology 08/22/24
--- OUTSIDE RECORDS SUMMARY | 2025-04-08 05:33 | XMS_ITS | Encounter Summary ---
[facility] Organization [facility] Address [address] [place] [id number] Care Team Providers Care Outsole Rounder Name Role Phone Provider, No Known Primary Care Provider Unavail able Reason for Visit * Reason Onset Date Comments Med Refill 03/11/2025 Encounter Details Date Type Department Care Team (Late st Contact Info) Description 03/11/2025 Refill [facility] [address] [place] [address] Luma Shin MA Med Refill Social History [...] deficiency documented in this encounter Care Teams Outsole Rounder Relationship Specialty Start Date End Date Provider, [place] [address] PCP - General 08/03/24 documented as of this encounter
--- OUTSIDE RECORDS SUMMARY | 2025-04-08 05:34 | XMS_ITS | Clinical Summary ---
Author Organization [facility] Address [address] [place] [address] Care Team Providers Care Cafeteria Server Name Role Phone Provider, No Known Primary [...] As Needed for Bladder Spasms. 10 tablet 06/21/19 24 9:51 AM EST 024 Active SUMAtriptan (IMITREX) 100 MG tablet 1 tab po daily prn HO. can take 2 hrs later as needed for HO Active albuterol (PROVENTIL) (2.5 MG/3ML) 0.083% nebulizer solution Inhale 2.5 mg (1 vial) by nebulization as directed every 4 hours as needed for Wheezing. 90 mL 11 025 Active aspirin 81 MG EC tablet Take 1 tablet by mouth Daily. 90 tablet 3 025 Active budesonide-formote rol (SYMBICORT) 160-4.5 MCG/ACT inhalerIndications :Moderate asthma, unspecified whether complicated, unspecified whether persistent Inhale 2 puffs by mouth 2 Times a Day. 10.2 g 12 025 Active furosemide (LASIX) 20 MG tablet Take 1 tablet by mouth Daily. 30 tablet 5 025 Active Additional Information Patient taking differently:20 mg OralDaily PRN, swelling, Informant: Self, Reported on 12/21/2024 ondansetron ODT (ZOFRAN-ODT) [address] 1 tablet on the tongue Every 8 (Eight) Hours As Needed for Nausea or Vomiting. 30 tablet 2 025 Active prochlorperazine (COMPAZINE) 5 MG tabletIndications: Nausea Take 1 tablet by mouth Every 6 (Six) Hours As Needed for Nausea or Vomiting. 60 tablet 11 025 Active Tirzepatide-Weight Management (Zepbound) 2.5 MG/0.5ML solutionIndication s:Chest pain, atypical,Family history of premature CAD,Obstructive sleep apnea,Class 1 obesity with alveolar hypoventilation and body mass index (BMI) of 32.0 to 32.9 in adult, unspecified whether serious comorbidity present,Hyperlipid emia LDL goal <70 Inject 0.5 mL under the skin into the appropriate area as directed 1 (One) Time Per Week. For LAXMI 2 mL 3 025 Active fenofibrate (TRICOR) 48 MG tabletIndications: Hyperlipidemia LDL goal <70 Take 1 tablet by mouth Daily. 90 tablet 3 025 Active amLODIPine (NORVASC) 5 MG tabletIndications: Hypertension, essential Take 1 tablet by mouth 2 (Two) Times a Day. 180 tablet 3 025 Active meclizine (ANTIVERT) 25 MG tablet Take 1 tablet by mouth 3 (Three) Times a Day. 270 tablet 3 025 Active omeprazole (priLOSEC) 20 MG capsule Take 1 capsule by mouth 2 (Two) Times a Day. 180 capsule 3 025 Active propranolol (INDERAL) 40 MG tablet Take 1 tablet by mouth 2 (Two) Times a Day. 180 tablet 3 025 Active vitamin D (ERGOCALCIFEROL) 1.25 MG (36500 UT) capsule capsule Take 1 capsule by mouth 1 (One) Time Per Week. 12 capsule 4 025 Active fexofenadine (REINA) 180 MG tabletIndications: Moderate asthma, unspecified whether complicated, unspecified whether persistent Take 1 tablet by mouth Daily. 90 tablet 3 Active Cholecalciferol (Vitamin D3) 50 MCG (1999 UT) capsuleIndications :Vitamin D deficiency Take 1 capsule by mouth Daily. 90 capsule 3 Active lamoTRIgine (LaMICtal) 100 MG tabletIndications: Bipolar I disorder, most recent episode depressed Take 1 tablet by mouth Daily. 90 tablet 1 Active amphetamine-dextro amphetamine XR (ADDERALL XR) 10 MG 24 hr capsuleIndications :ADHD (attention deficit hyperactivity disorder), combined type Take 1 capsule by mouth Every Morning 30 capsule Active desvenlafaxine (PRISTIQ) 50 MG 24 hr tabletIndications: Bipolar I disorder, most recent episode depressed,Generali zed anxiety disorder TAKE 1 TABLET BY MOUTH ONCE A DAY 30 tablet 1 Active cefdinir (OMNICEF) 300 MG capsule Take 1 capsule by mouth 2 (Two) Times a Day for 7 days. 14 capsule 025 2024 Active lamoTRIgine (LaMICtal) 100 MG tabletIndications: Bipolar I disorder, most recent episode depressed Take 1 tablet by mouth Daily. 90 tablet 1 025 2024 Discontinued(R eorder) Cholecalciferol (Vitamin D3) 50 MCG (1999) capsuleIndications :Vitamin D deficiency Take 1 capsule by mouth Daily. 90 capsule 3 025 2024 Discontinued(R eorder) fexofenadine (REINA) 180 MG tabletIndications: Moderate asthma, unspecified whether complicated, unspecified whether persistent Take 1 tablet by mouth Daily. 90 tablet 3 025 2024 Discontinued(R eorder) desvenlafaxine (PRISTIQ) 50 MG 24 hr tabletIndications: Bipolar I disorder, most recent episode depressed,Generali zed anxiety disorder Take 1 tablet by mouth Daily. 30 tablet 1 025 2024 Discontinued(R eorder) lisdexamfetamine (VYVANSE) 30 MG capsuleIndications :ADHD (attention deficit hyperactivity disorder), combined type Take 1 capsule by mouth Every Morning 30 capsule 025 2024 Discontinued(H istorical Med - Therapy completed) desvenlafaxine (PRISTIQ) 50 MG 24 hr tabletIndications: Bipolar I disorder, most recent episode depressed,Generali zed anxiety disorder Take 1 tablet by mouth Daily. 30 tablet 1 025 2024 Discontinued cefdinir (OMNICEF) 300 MG capsuleIndications :Renal stone Take 1 capsule by mouth 2 (Two) Times a Day for 7 days. 14 capsule 025 2024 Discontinued(D uplicate order) Active Problems Problem Noted Date Diagnosed Date [...] risk factors, including hypertension, hyperlipidemia, obesity and ALXMI. She also has a family history of [...] (07/27/2024 10:27 AM EST): Patient has an Cool sleepiness scale of 9. Neck size 14 [...] organization. Date Type Department Care Team Description 04/04/2025 Results Follow-Up [facility] [address] [place] [address] [address] [place] [address] Alma Murillo MA 04/02/2025 8:45 AM EDT Clinical Support [facility] [address] [place] [address] Need for influenza vaccination; Renal stone 04/02/2025 Travel 03/11/[address] [facility] [address] [place] [address] [place] [address] Luma Shin MA Med Refill 01/14/[address] [facility] [address] [place] [address] Tanya Argueta APRN Med Refill from Last 3 Months Immunizations Immunization Administration Dates Next Due Fluzone >6mos 04/02/2025,03/19/2024 Fluzone (or Fluarix & Flulaval for VFC) [...] ANNUAL PHYSICAL 08/06/2022 HEPATITIS C SCREENING 08/06/2022 LIPID PANEL 03/18/2026 03/18/2025, 1011/2024, 07/25/2024, Additional history exists INFLUENZA VACCINE Completed 04/02/2025, , 03/17/2023 Procedures Procedure Name Priority Date/Time Associated Diagnosis Comments CBC AND DIFFERENTIAL Routine 04/02/2025 8:30 AM EDT Renal stone COMPREHENSIVE METABOLIC PANEL Routine 04/02/2025 8:30 AM EDT Renal stone URINALYSIS AND MICROSCOPIC Routine 04/02/2025 8:29 AM EDT Renal stone CONV NO TEST INDICATED Routine 8:29 AM EDT ~MICROSCOPIC EXAMINATION Routine 04/02/2025 8:29 AM EDT LIPID PANEL Routine 07/25/2024 8:17 AM EST Hypertension, essential Mixed hyperlipidemia Encounter for routine laboratory testing from Last 3 Months or Most Recently Relevant to Health Maintenance Results * CBC & Differential (04/02/2025 8:30 AM [...] Grans Absolute 0.0 0.0 - 0.1 x10E3/uL [facility] Blood 04/02/2025 8:30 AM EDT 04/02/2025 Comment:[facility] ([facility]UL[facility]) - 04/03/2025 9:07 AM EDT Performed at: - [facility] [id number] Plastic Battery Assembler: Dallas George PhD, Phone: [phone] us Sarah Swanson BIZTALK CONSULTANT LAB BLOOD ORDERABLES Final R esult [facility] [address] [place] [address], [place] [phone] [facility] [address] [place] [address], * (ABNORMAL) Comprehensive Metabolic Panel (04/02/2025 8:30 AM EDT) Pathologist [facility] Glucose 85 70 - 99 mg/dL [facility] [...] 9:07 AM EDT Performed at: 01 - [address] [id number] Plastic Battery Assembler: Dallas George PhD, Phone: [phone] Sarah W Kiki BIZTALK CONSULTANT LAB BLOOD ORDERABLES Final R esult [facility] (AMBUL[facility]) [address] [place] [address], [facility] [address] [place] [address], * No Test Indicated (04/02/2025 8:29 AM EDT) . Comment [facility] Comment:A urine culture good sport was received with no test indicated Dear Doctor, Comment [facility] Comment: The requisition we received for [...] 8:29 AM EDT 04/02/2025 Comment:Urine Release to [facility] (AMBULATORY) - 04/04/2025 10:07 AM EDT Performed at: 01 - [address] [id number] Plastic Battery Assembler: Dallas George PhD, Phone: [phone] us Sarah W Seivers BIZTALK CONSULTANT LAB BLOOD ORDERABLES Final R esult Performing Organization Address City/[facility]/ZIP Co de Phone Number [facility] (AMBULATORY) [address] [place] [address], [place] [phone] [facility] [address] [place] [address], [place] [phone] * (ABNORMAL) Microscopic Examination - (04/02/2025 8:29 [...] 8:29 AM EDT 04/02/2025 Comment:Urine Release to [facility] (AMBULATORY) - 04/04/2025 10:07 AM EDT Performed at: 01 - [address] [id number] Plastic Battery Assembler: Dallas George PhD, Phone: [phone] us Sarah W Seivers BIZTALK CONSULTANT URINE ORDERABLES Final Resul t Performing Organization Address City/[facility]/ZIP Co de Phone Number [facility] (AMBULATORY) [address] [place] [address], [place] [phone] [facility] [address] [place] [address], [place] [phone] * (ABNORMAL) Urinalysis With Microscopic - Urine, Clean Catch (04/02/2025 8:29 AM EDT) Specific [place], UA 1.027 1.005 - 1.030 [facility] [...] EDT 04/02/2025 Comment:Urine Release to jose Zabala [facility] (AMBULATORY) - 04/04/2025 10:07 AM EDT Performed at: 01 - [facility] [id number] Plastic Battery Assembler: Dallas George PhD, Phone: [phone] us Sarah W Kiki BIZTALK CONSULTANT URINE ORDERABLES Final Resul t [facility] [address] [place] [address], [place] [phone] [facility] [address] [place] [address], from Last 3 Months Insurance [facility] [place] [address] Care Teams Cafeteria Server Relationship Specialty Start Date End Date Provider, [place] [address] PCP - General 08/03/24
--- OUTSIDE RECORDS SUMMARY | 2025-04-08 05:34 | XMS_ITS | Encounter Summary ---
Author Organization [employer] ([place], [place], [place], [place]) Address [address] [place] [address] Care Team Providers Care Information Systems Audit Manager Name Role Phone [facility] Jose, [facility] Primary Care Provider Encounter Details Date Type Department Care Team (Latest Contact Info) Description 03/17/2025 Travel Social History Tobacco Use Types Packs/Day Years Used Date Smoking Tobacco: Never Assessed Housing Stability Vital Sign Answer Joel e Recorded In the last 12 months, was t here a time when you were not able to pay the mortgage or rent on time? No 03/18/2025 In the past 12 months, how m any times have you moved where you were living? 0 03/18/2025 At any time in the past 12 m [facility], were you homeless or living in a longterm (including now)? No 03/18/2025 Utilities Answer Date [...] your living situation today? I have [place] [facility] [place] [address] to live 03/18/2025 Think about the [...] Do you speak a language other than [place] [facility]? No 03/18/2025 Do you want [...] on file Legal Sex Female 12:01 PM [employer] Gender Identity Not on file Sexual Orientation Not on file documented as of this encounter Plan of Treatment Not on file documented as of this encounter Visit Diagnoses Not on filedocumented in this encounter Care Teams Information Systems Audit Manager Relationship Specialty Start Date End Date [facility] Connection, [facility]Doc [facility] [place] [address] PCP - General 03/17/25 documented as of this encounter
--- OUTSIDE RECORDS SUMMARY | 2025-04-08 05:34 | XMS_ITS | Data Portability ---
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 Procedures None recorded. Surgeries None recorded. Imaging MRI, brain, w/wo contrast - trigem neuralgia, diplopia, fam hx of MS, and new vertigo 2021 022 [facility], [address], [place], [address], 2 09:43:27 Medication Orders meclizine 25 mg tablet 2021 022 [facility], [address] [place] [address], [id number], 2 09:22:50 ProAir HFA 90 mcg/actuati on aerosol inhaler 2021 022 [facility], [address] [place] [address], [id number], 2 09:22:52 Imitrex 100 mg tablet 2021 022 [facility], [address] [place] [address], [place], [id number], 2 09:20:41 Seroquel 50 mg tablet 2021 022 [facility], [address] [place] [address], [place], [id number], 3 15:45:57 duloxetine 60 mg capsule,del ayed release 2021 022 [facility], [address] [place] [address] [place], [id number], 3 15:43:50 metoprolol succinate ER 25 mg tablet,exte nded release 24 hr 2021 022 [facility], [address] [place] [address] [place], [place], [id number], 3 15:44:49 Trelegy Ellipta 100 mcg-62.5 mcg-25 mcg powder for inhalation 2021 [facility], [address] [place] [address], [address], 3 15:46:31 meclizine 25 mg tablet 2021 022 [email or web address] [facility], [address] [place] [address] [place], [place], [id number], 2 11:05:24 ProAir HFA 90 mcg/actuati on aerosol inhaler 2020 021 [facility], [address] [place] [address] [place], [id number], 1 09:19:46 Trelegy Ellipta 100 mcg-62.5 mcg-25 mcg powder for inhalation 2020 021 [facility], [address], [place], [id number], 3 15:46:31 gabapentin 400 mg capsule 2020 021 [facility], [facility] [address], [place], [id number], 3 15:44:12 duloxetine 60 mg capsule,del ayed release 2020 021 [facility], [facility] [address], [id number], 3 15:43:23 Seroquel 25 mg tablet 2020 021 [facility], [address] [place] [address], [id number], 2 09:19:57 Patient TargetsNo targets recorded. Patient Instructions Encounter Date Encounter Id Patient Instructions Last Modified By Organization Details Last Modified Time 06/26/2021 [id number] smoking cessatio n counseling, greater than 3 minutes up to 10 minutes* Not available 06/26/2021 10:13:15 Reason for Referral None Reported. Results Created Date Observation Date Name Description Value Unit Range Abnormal Flag Note LastModifiedBy Organization Detail LastModifiedTime 03/27/2003/28/2021 TSH+F REE T4 TSH 1.020 uIU/m L 0.450- 4.500 Not Available [facility] ([facility]) [address] [place], [address], 03/28/2021 06:37:03 03/27/2003/28/2021 TSH+F REE T4 T4,free(dire ct) 1.29 NG/dL 0.82-1 .77 Not Available [facility] ([facility]) [address] [facility], [place], [address], 03/28/2021 06:37:03 03/27/2003/28/2021 CBC WITH DIFFE RENTI AL/PL ATELE T WBC 7.1 x10e3 /uL 3.4-10 .8 Not Available [facility] ([facility]) [address] [facility], [place], [address], 03/28/2021 06:37:04 03/27/2003/28/2021 CBC WITH DIFFE RENTI AL/PL ATELE T RBC 4.97 x10e6 /uL 3.77-5 .28 Not Available [facility] ([facility]) [address] [place], [address], 03/28/2021 06:37:04 03/27/2003/28/2021 CBC WITH DIFFE RENTI AL/PL ATELE T hemoglobin 16.0 g/dL 11.1-1 5.9 above high normal Not Available [facility] ([facility]) [address] [place], [address], 03/28/2021 06:37:04 03/27/2003/28/2021 CBC WITH DIFFE RENTI AL/PL ATELE T hematocrit 48.5 % 34.0-4 6.6 above high normal Not Available [facility] ([facility]) [address] [place], [address], 03/28/2021 06:37:04 03/27/2003/28/2021 CBC WITH DIFFE RENTI AL/PL ATELE T MCV 98 fL 79-97 above high normal Not Available [facility] ([facility]) [address] [place], [address], 03/28/2021 06:37:04 03/27/2003/28/2021 CBC WITH DIFFE RENTI AL/PL ATELE T MCH 32.2 pg 26.6-3 3.0 Not Available [facility] ([facility]) [address] [facility], [place], [address], 03/28/2021 06:37:04 03/27/2003/28/2021 CBC WITH DIFFE RENTI AL/PL ATELE T MCHC 33.0 g/dL 31.5-3 5.7 Not Available [facility] ([facility]) [address] [facility], [place], [address], 03/28/2021 06:37:04 03/27/2003/28/2021 CBC WITH DIFFE RENTI AL/PL ATELE T RDW 12.0 % 11.7-1 5.4 Not Available [facility] ([facility]) [address] [facility], [place], [address], 03/28/2021 06:37:04 03/27/2003/28/2021 CBC WITH DIFFE RENTI AL/PL ATELE T platelets 238 x10e3 /uL 150-45 0 Not Available [facility] ([facility]) [address] [facility], [place], [address], 03/28/2021 06:37:04 03/27/2003/28/2021 CBC WITH DIFFE RENTI AL/PL ATELE T neutrophils 66 % not estab. Not Available [facility] ([facility]) [address] [facility], [place], [address], 03/28/2021 06:37:04 03/27/2003/28/2021 CBC WITH DIFFE RENTI AL/PL ATELE T lymphs 21 % not estab. Not Available [facility] ([facility]) [address] [facility], [place], [address], 03/28/2021 06:37:04 03/27/2003/28/2021 CBC WITH DIFFE RENTI AL/PL ATELE T monocytes 7 % not estab. Not Available [facility] ([facility]) [address] [facility], [place], [address], 03/28/2021 06:37:04 03/27/20 21 03/28/2021 CBC WITH DIFFE RENTI AL/PL ATELE T eos 5 % not estab. Not Available [facility] ([facility]) [address] [facility], [place], [address], 03/28/2021 06:37:04 03/27/2003/28/2021 CBC WITH DIFFE RENTI AL/PL ATELE T basos 1 % not estab. Not Available [facility] ([facility]) [address] [place], [address], 03/28/2021 06:37:04 03/27/2003/28/2021 CBC WITH DIFFE RENTI AL/PL ATELE T immature cells COUNTER WAITER Not Available [facility] ([facility]) [address] [place], [address], 03/28/2021 06:37:04 03/27/2003/28/2021 CBC WITH DIFFE RENTI AL/PL ATELE T neutrophils (absolute) 4.7 x10e3 /uL 1.4-7. 0 Not Available [facility] ([facility]) [address] [place], [address], 03/28/2021 06:37:04 03/27/2003/28/2021 CBC WITH DIFFE RENTI AL/PL ATELE T lymphs (absolute) 1.5 x10e3 /uL 0.7-3. 1 Not Available [facility] ([facility]) [address] [place], [address], 03/28/2021 06:37:04 03/27/2003/28/2021 CBC WITH DIFFE RENTI AL/PL ATELE T monocytes(ab solute) 0.5 x10e3 /uL 0.1-0. 9 Not Available [facility] ([facility]) [address] [place], [address], 03/28/2021 06:37:04 03/27/20 21 03/28/2021 CBC WITH DIFFE RENTI AL/PL ATELE T eos (absolute) 0.3 x10e3 /uL 0.0-0. 4 Not Available [facility] ([facility]) [address] [facility], [place], [address], 03/28/2021 06:37:04 03/27/2003/28/2021 CBC WITH DIFFE RENTI AL/PL ATELE T baso (absolute) 0.1 x10e3 /uL 0.0-0. 2 Not Available [facility] ([facility]) [address] [facility], [place], [address], 03/28/2021 06:37:04 03/27/2003/28/2021 CBC WITH DIFFE RENTI AL/PL ATELE T immature granulocytes 0 % not estab. Not Available [facility] ([facility]) [address] [facility], [place], [address], 03/28/2021 06:37:04 03/27/2003/28/2021 CBC WITH DIFFE RENTI AL/PL ATELE T immature grans (abs) 0.0 x10e3 /uL 0.0-0. 1 Not Available [facility] ([facility]) [address] [facility], [place], [address], 03/28/2021 06:37:04 03/27/2003/28/2021 CBC WITH DIFFE RENTI AL/PL ATELE T NRBC COUNTER WAITER Not Available [facility] ([facility]) [address] [facility], [place], [address], 03/28/2021 06:37:04 03/27/2003/28/2021 CBC WITH DIFFE RENTI AL/PL ATELE T hematology comments: COUNTER WAITER Not Available [facility] ([facility]) [address] [facility], [place], [address], 03/28/2021 06:37:04 03/27/20 21 03/28/2021 COMP. METAB OLIC PANEL (14) glucose 55 mg/dL 65-99 below low normal Not Available [facility] ([facility]) [address] [place], [address], 03/28/2021 06:37:05 03/27/20 21 03/28/2021 COMP. METAB OLIC PANEL (14) BUN 8 mg/dL 6-20 Not Available [facility] ([facility]) [address] [place], [address], 03/28/2021 06:37:05 03/27/2003/28/2021 COMP. METAB OLIC PANEL (14) creatinine 0.54 mg/dL 0.57-1 .00 below low normal Not Available [facility] ([facility]) [address] [place], [address], 03/28/2021 06:37:05 03/27/20 21 03/28/2021 COMP. METAB OLIC PANEL (14) eGFR if nonafricn AM 123 mL/mi n/1.7 3 >59 Not Available [facility] ([facility]) [address] [place], [address], 03/28/2021 06:37:05 03/27/20 21 03/28/2021 COMP. METAB [...] a race varia ble. Not Available [facility] ([facility]) [address] [place], [address], 03/28/2021 06:37:05 03/27/20 21 03/28/2021 COMP. METAB OLIC PANEL (14) BUN/creatini ne ratio 15 9-23 Not Available [facility] ([facility]) [address] [place], [address], 03/28/2021 06:37:05 03/27/2003/28/2021 COMP. METAB OLIC PANEL (14) sodium 143 mmol/ L 134-14 4 Not Available [facility] ([facility]) [address] [place], [address], 03/28/2021 06:37:05 03/27/2003/28/2021 COMP. METAB OLIC PANEL (14) potassium 4.6 mmol/ L 3.5-5. 2 Not Available [facility] ([facility]) [address] [place], [address], 03/28/2021 06:37:05 03/27/2003/28/2021 COMP. METAB OLIC PANEL (14) chloride 105 mmol/ L 96-106 Not Available [facility] ([facility]) [address] [place], [address], 03/28/2021 06:37:05 03/27/2003/28/2021 COMP. METAB OLIC PANEL (14) carbon dioxide, total 15 mmol/ L 20-29 below low normal Speci men quant ity insuf ficie nt for verif icati on by repea t kathe sis. Not Available [facility] ([facility]) [address] [place], [address], 03/28/2021 06:37:05 03/27/2003/28/2021 COMP. METAB OLIC PANEL (14) calcium 9.3 mg/dL 8.7-10 .2 Not Available [facility] ([facility]) [address] [place], [address], 03/28/2021 06:37:05 03/27/2003/28/2021 COMP. METAB OLIC PANEL (14) protein, total 7.2 g/dL 6.0-8. 5 Not Available [facility] ([facility]) [address] [place], [address], 03/28/2021 06:37:05 03/27/20 21 03/28/2021 COMP. METAB OLIC PANEL (14) albumin 4.5 g/dL 3.8-4. 8 Not Available [facility] ([facility]) [address] [place], [address], 03/28/2021 06:37:05 03/27/2003/28/2021 COMP. METAB OLIC PANEL (14) globulin, total 2.7 g/dL 1.5-4. 5 Not Available [facility] ([facility]) [address] [place], [address], 03/28/2021 06:37:05 03/27/20 21 03/28/2021 COMP. METAB OLIC PANEL (14) A/G ratio 1.7 1.2-2. 2 Not Available [facility] ([facility]) [address] [place], [address], 03/28/2021 06:37:05 03/27/2003/28/2021 COMP. METAB OLIC PANEL (14) bilirubin, total 0.3 mg/dL 0.0-1. 2 Not Available [facility] ([facility]) [address] [place], [address], 03/28/2021 06:37:05 03/27/2003/28/2021 COMP. METAB OLIC PANEL (14) alkaline phosphatase 66 IU/L 44-121 Ple ase note refer ence inter aguila nj e Not Available [facility] ([facility]) [address] [place], [address], 03/28/2021 06:37:05 03/27/2003/28/2021 COMP. METAB OLIC PANEL (14) AST (SGOT) 23 IU/L 0-40 Not Available [facility] ([facility]) [address] [place], [address], 03/28/2021 06:37:05 03/27/20 21 03/28/2021 COMP. METAB OLIC PANEL (14) ALT (SGPT) 13 IU/L 0-32 Not Available [facility] ([facility]) [address] [place], [address], 03/28/2021 06:37:05 03/27/20 21 03/28/2021 LIPID PANEL WITH LDL/H DL RATIO cholesterol, total 162 mg/dL 100-19 9 Not Available [facility] ([facility]) [address] [place], [address], 03/28/2021 06:37:05 03/27/20 21 03/28/2021 LIPID PANEL WITH LDL/H DL RATIO triglyceride s 186 mg/dL 0-149 above high normal Not Available [facility] ([facility]) [address] [place], [address], 03/28/2021 06:37:05 03/27/20 21 03/28/2021 LIPID PANEL WITH LDL/H DL RATIO HDL cholesterol 27 mg/dL >39 below low normal Not Available [facility] ([facility]) [address] [place], [address], 03/28/2021 06:37:05 03/27/20 21 03/28/2021 LIPID PANEL WITH LDL/H DL RATIO VLDL cholesterol boo 33 mg/dL 5-40 Not Available [facility] ([facility]) [address] [place], [address], 03/28/2021 06:37:05 03/27/20 21 03/28/2021 LIPID PANEL WITH LDL/H DL RATIO LDL chol calc ([facility]) 102 mg/dL 0-99 above high normal Not Available [facility] ([facility]) [address] [place], [address], 03/28/2021 06:37:05 03/27/2003/28/2021 LIPID PANEL WITH LDL/H DL RATIO comment: COUNTER WAITER Not Available [facility] ([facility]) [address] [facility], [place], [address], 03/28/2021 06:37:05 03/27/2003/28/2021 LIPID PANEL WITH LDL/H DL RATIO LDL/HDL ratio 3.8 ratio 0.0-3. 2 above high normal LDL/H DL Ratio Men Women 1/2 Avg.R isk 1.0 1.5 Avg.R isk 3.6 3.2 2X Avg.R isk 6.2 5.0 3X Avg.R isk 8.0 6.1 Not Available [facility] ([facility]) [address] [place], [address], 03/28/2021 06:37:05 03/27/2003/28/2021 HEMOG LOBIN A1C hemoglobin A1C 5.0 % 4.8-5. 6 Predi abete s: 5.7 - 6.4 Diabe haim: >6.4 Glyce analia contr ol for adult s with diabe haim: <7.0 Not Available [facility] ([facility]) [address] [place], [address], 03/28/2021 06:37:06 12/18/1912/19/2022 SARS- COV-2 , RASHMI [...] in this assay . Not Available [facility] ([facility]) [address] [facility], [place], [address], 12/19/2022 18:06:17 12/18/19 23 12/18/2022 PLESAAD E NOTE please note Commen t The date and/o r time of colle ction was not indic ated on the requi sitio n as requi red by state and peg al law. The date of recei pt of the speci men was used as the colle ction date if not suppl ied. Not Available [facility] ([facility]) [address] [facility], [place], [address], 12/19/2022 18:06:18 07/17/1907/17/2024 GENES IGHT PSYCH OTROP IC, GENES IGHT MTHFR genesight psychotropic , genesight mthfr See PDF normal See PDF for compl ete resul ts. Inter preta tion of hank ic resul ts to guide clini boo decis ion inclu ded in the resul ting PDF. Not Available [facility] [address], [place], [address], 07/23/2024 17:11:16 Result Notes None recorded. Problems Name Problem SNOMED Code Status Onset Date Resolution Date Notes Provider Name and Address Organization Details Recorded Time Hyperthyro idism 48189215 Completed 201603/30/2017 Jorge Bailey MD [address], [place], [address], [place] - [facility] 7 13:17:44 Anxiety 85611006 Active 2016 Nenita Cid null, [place] - [facility] 7 10:19:10 Depressive disorder 95929264 Active 2016 Jorge Bailey MD [address], [place], [address], [place] - [facility] 7 13:17:14 Low back pain 785681512 Active 2016 Jorge Bailey MD [address], [place], [address], [place] - [facility] 7 13:17:34 History of thyroid disorder 162060508 Active 2016 albertina - denies this Tolu Awad null, [place] - [facility] 1 09:21:17 Asthma 801077566 Active 2020 Rebecca Marsha null, [place] - [facility] 1 10:53:18 Trigeminal neuralgia 10275021 Active 2020 Farhan Nelson null, [place] - [facility] 1 20:11:40 Insomnia 610962083 Active 2020 Tolu Awad null, [place] - [facility] 1 08:49:21 Vertigo 519763106 Active 2021 Tlou Awad null, [place] - [facility] 2 10:22:46 Diplopia 84141303 Active 2021 Tolu Awad null, [place] - [facility] 2 10:22:48 Problem Notes None recorded. Procedures Surgical History Date Name Laterality Status Provider Name and Address Organization Details Recorded Time 2 Date of Last Pap Smear completed Jennifer Robertson RN [address], [place], [address], [place] - [facility] 06/26/2021 09:50:43 1 Systolic [...] Name and Address Organization Details Recorded Time 714075 Wellbutri n medicatio n other Not available Not available 08/01/2020 45673 RxNorm night rowe Farhan Omar [place], [place] - [facility] 17:41:46 810991 carbamaze pine medicatio n itching Not available Not available 08/15/20202001 RxNorm Farh[place]m [place], [place] - [facility] 16:59:25 16794 Product containin g penicilli n (product) medicatio n respirato ry distress Not available Not available 03/19/20162015 77496 8001 SNOMED React ion: breat binu probl ems/s welli ng/hi ves; Not Available [facility] 6 08:53:22 Medications Name Sig Start Date Stop Date Status Note LastModified by Organization Details LastModified Time tirzepati de methylcob alamin 10mg 1mg/1ml injectabl e Inject 0.5mL (5mg=50 units) subcutan eously once weekly for four (4) weeks. 07/17 completed Not Available Not Available Not Available tirzepati de 10mg/ml injectabl e Inject 0.5mL [...] Updated DateTime 2 177.8 cm 24.1 kg/m2 32760.5 2 g 76 /min 99 % 99 % 18 /min 118/86 mm[Hg] Jennifer Robertsno RN [address], [place], [address], [place] - [facility] 2 09:57:13 Date Recorded Body weight Heart rate Oxygen saturation Oxygen saturation in Arterial blood by Pulse oximetry Respiratory rate Pain severity - 0-10 verbal numeric rating [Score] - Reported Systolic And Diastolic Provider Name and Address Organization Details Last Updated DateTime 5 14448.8 8 g 78 /min 98 % 98 [...] Updated DateTime 2 177.8 cm 23.5 kg/m2 03921.1 5 g 98.6 [degF] 74 /min 97 % 97 % 18 /min 0 118/76 mm[Hg] Joselin Thrasher [facility] 2 08:55:27 Date Recorded Body weight Body temperature Heart rate Oxygen saturation Oxygen saturation in Arterial blood by Pulse oximetry Respiratory rate Pain severity - 0-10 verbal numeric rating [Score] - Reported Systolic And Diastolic Provider Name and Address Organization Details Last Updated DateTime 3 22850.1 g 97.5 [degF] 82 /min 98 % [...] Updated DateTime 1 177.8 cm 23.1 kg/m2 14914.3 7 g 98.4 [degF] 76 /min 98 % 98 % 18 /min 7 109/74 mm[Hg] Joselin Thrasher [facility] 1 09:04:36 Social History Question Answer Notes LastModified by Organizat ion Details LastModified Time Tobacco Smoking Status Current Every Day Smoker Emlissa Yancy [place] - [facility] 02/02/2017 08:47:30 Able To Swim? Yes [email or web address] Information not available 04/24/2021 Do You Have An Advance Directive? No [email or web address] Information not available 02/17/2021 Do You Wear A Helmet When Biking? Yes [email or web address] Information not available 04/24/2021 Are You Blind Or Do You Have Difficulty Seeing? No [email or web address] Information not available 04/24/2021 What Is Your Level Of Caffeine Consumption? Occasional [email or web address] Information not available 02/02/2017 In The 14 [...] Type Of Diet Are You Following? REGULAR [email or web address] Information not available 02/02/2017 Have You Processed [...] Do You Have A Medical Power Of Material Handling Equipment [place]? No [email or web address] Information not available 04/24/2021 What Was The Date Of Your Most Recent Tobacco Screening? 07/17/2024 Information not available 07/17/2024 Seat Belts Used Routinely Yes [email or web address] Information not available 04/24/2021 Are You Sexually Active? Yes [email or web address] Information not available 04/24/2021 Smoke Alarm In Home Yes [email or web address] Information not available 04/24/2021 Do You Have Smoke And Carbon Monoxide Detectors In Your Home? Yes [email or web address] Information not available 02/17/2021 Are You Passively Exposed To Smoke? Yes [email or web address] Information no t available 02/17/2021 How Much Tobacco Do You Smoke? 0.5 PPD Information not available 12/17/2022 Do You Use Sunscreen Routinely? Yes [email or web address] Information not available 02/02/2017 Has Tobacco Cessation [...] is your level of alcohol consumption? Occasional [email or web address] Information not available 02/02/2017 Are you currently employed? Yes [email or web address] Information not available 02/02/2017 Do you have transportation difficulties? No [email or web address] Information not available 04/24/2021 Are you able to walk independently without assistance or assistive devices? [email or web address] Information not available 04/24/2021 Do you have difficulty doing errands alone? No [email or web address] Information not available 04/24/2021 Are you able to care for yourself independently? Yes [email or web address] Information not available 02/02/2017 Do you have [...] Organization Details LastModified Time Mother Diabetes mellitus Not available 2016 08:47:03 Mother Multiple sclerosis [...] trivalent, PF 4 completed Elayne Thorne null, [facility] 07/17/2024 17:40:07 Influenza, split virus, quadrivalent , PF 3 completed Elayne Thorne null, [facility] 07/17/2024 17:40:07 Influenza, split virus, quadrivalent , PF 1 cancelled patient objection Tolu Dillardram null, [facility] 04/24/2021 09:25:53 Past Encounters Encounter ID Performer Location Encounter Start Date Encounter Closed Date Diagnosis/Indication Diagnosis SNOMED-CT Code Diagnosis ICD10 Code Diagnosis IMO Codes Diagnosis Note [id number] [facility] [address] [place] [address] 12/12/2013 00:00:00 [id number] [facility] [address] [place] [address] 07/16/2015 00:00:00 [id number] [facility] [address] [place] [address] 08/04/2015 00:00:00 [id number] [facility] [address] [place] [address] 08/04/2015 00:00:00 [id number] [facility] [address] [place] [address] 01/30/2016 00:00:00 [id number] Alyssa Figueroa APRN [facility] [address] [place] [address] 02/02/2017 08:37:21 02/02/2017 10:05:21 Body mass index 20-24 - normal 770711505 Z68.20 Nicotine dependence 5629 4008 F17.200 Headache 67949834 R51 Migraine 35083212 G43.90 9 Frontal sinusitis 656740 05 J32.1 [id number] Jorge Bailey MD [address] [place] [address] 03/30/2017 09:43:41 03/30/2017 12:59:48 Low back pain 661988535 M54.5 Hypothyroidism 65905273 E03.9 Fatigue 88714266 R53.83 Anxiety 88395496 F41.9 Depressive disorder 3548 9007 F32.9 History of thyroid disorder [id number] Z86.39 [id number] Jorge Bailey MD [address] [place] [address] 09/08/2017 15:24:44 09/08/2017 16:52:46 Nausea, vomiting and diarrhea 5341889 R11.2 [id number] Jorge Bailey MD [address] [place] [address] 05/19/2018 15:36:25 05/19/2018 16:50:25 Neck pain 58421768 M54.2 Dizziness 899054528 R42 [id number] Alma Chu [address] [place] [address] 08/01/2018 13:40:56 08/01/2018 15:18:10 Pain in left knee 4743792570 01986 M25.562 Migraine 75410783 G43.90 9 Anxiety 64403087 F41.9 Cigarette smoker 5200116 7 F17.624 [id number] Alma Chu [address] [place] [address] 09/11/2018 10:01:40 09/11/2018 12:30:32 Migraine 47121373 G43.909 Pain in left knee 174344 1030 04371 M25.562 History of thyroid disorder 392688514 Z86.39 Endocrine/ metabolic screening 158291453 Z13.698 [id number] Farhan Nelson MD [address] [place] [address] 04/09/2019 13:28:32 04/09/2019 15:18:56 Acute bronchitis 50884313 J20.9 Nicotine dependence 5629 4008 F17.262 [id number] Farhan Nelson MD [address] [place] [address] 07/10/2020 10:38:46 07/10/2020 12:35:54 Anxiety 79609925 F41.9 Asthma 342918493 J45.90 9 Body mass index 20-24 - normal 663215366 Z68.22 Major depr essive disorder 501967805 F32.9 Right trig eminal neuralgia 0214834421 5970617 G50.0 Nicotine dependence 5629 4008 F17.928 [id number] Farhan Nelson MD [address] [place] [address] 08/01/2020 16:35:01 08/01/2020 17:08:22 Trigeminal neuralgia 17679935 G50.0 [id number] Farhan Nelson MD [address] [place] [address] 08/15/2020 16:34:49 09/01/2020 15:36:14 Body mass index 20-24 - normal 656690151 Z68.22 Trigeminal neuralgia 316 64054 G50.0 Anxiety 80530010 F41.9 Depressive disorder 3548 9007 F32.9 [id number] Tolu Awad [address] [place] [address] 02/17/2021 08:51:34 02/17/2021 09:29:40 Asthma 758575374 J45.909 Major depr essive disorder 867509943 F32.9 Trigeminal neuralgia 316 41413 G50.0 Depressive disorder 3548 9007 F32.9 History of thyroid disorder 765114110 Z86.39 Adult heal th examination 461262321 Z00.00 [id number] Tolu Awad [address] [place] [address] 03/27/2021 08:10:48 03/27/2021 09:05:05 Depressive disorder 95105536 F32.9 Major depr essive disorder 085502150 F32.9 Asthma 872355481 J45.90 9 History of thyroid disorder 871442849 Z86.39 Adult heal th examination 595374140 Z00.00 Insomnia 584806524 G47.0 0 [id number] Tolu Awad [address] [place] [address] 04/24/2021 08:39:35 04/24/2021 09:23:47 Depressive disorder 06733727 F32.9 Anxiety 25677110 F41.9 Major depr essive disorder 417570649 F32.9 Trigeminal neuralgia 316 02796 G50.0 Asthma 323738522 J45.90 9 Administra tion of influenza vaccine 22489443 Z23 [id number] Tolu Awad [address] [place] [address] 06/26/2021 09:44:39 06/26/2021 10:22:44 Asthma 756177696 J45.909 Depressive disorder 3548 9007 F32.9 Trigeminal neuralgia 316 24008 G50.0 Anxiety 53638031 F41.9 Nicotine dependence 5629 4008 F17.200 Vertigo 066936301 R42 Diplopia 94444384 H53.2 [id number] Tolu Awad [address] [place] [address] 09/11/2021 08:30:46 09/11/2021 09:25:17 Major depressive disorder 846441626 F32.9 Vertigo 027558673 R42 Migraine 86444853 G43.90 9 Asthma 509368553 J45.90 9 Renewal of prescription 370865276 Z76.0 [id number] Evens Howard APRN [address] [address] 12/17/2022 15:23:11 12/17/2022 16:22:36 Exposure to SARS-CoV-2 125717064 Z20.372 [id number] Evens Howard APRN [address] [address] 07/17/2024 17:35:20 07/17/2024 18:32:08 Depressive disorder 23130951 F32.9 due to multiple meds that she has tried and failed will refer for medication adjustment if no improvemen t or worsening return or go to ed Anxiety 91436802 F41.9 pt wants to wait on gensight [...] Name 02/17/2021 1 *SELF PAY* Re guero Entriken Ana 07/30/2024 1 () Albertina Entriken Ana [id number] Albertina Entriken Ana 07/17/2024 1 [place] [id number] Albertina Entriken Ana [id number] Albertina Entriken Ana 08/01/2020 PROGRESSIVE Albertinalaina Collins Albertina Entriken Ana 08/01/2020 1 HUMANA (POS) [id number] Albertina Ana [id number] Albertina Entriken Ana 03/27/2021 1 [facility] [place] Albertina B Ana [id number] Albertina Entriken Ana 05/29/2021 [id number] Albertina B Ana [id number] Albertina Entriken Ana 03/27/2021 1 [facility] [place] Albertina Entriken Ana [id number] Albertina Entriken Ana 08/01/2020 1 [employer] [place] (MEDICA[place] REPLACEMENT - H[place]) [place] Albertina S [place] [id number] Albertina Entriken Ana 08/01/2020 [facility]ICA[facility] (MEDICAID) [place] [id number] Albertina Entriken Ana 12/17/2022 1 *SELF PAY* Re guero Entriken Ana 05/29/2021 [facility] (MEDICAID) [id number] Albertina B Ana [id number] Albertina Entriken Ana Notes Date Note Type Note Provider [...] text/html 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 for bp spikes. helped some with [...] vertigo worse. affecting job. 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 constant-meclizine not helping. better today. not on [...] exposure. Pt is currently asymptomatic. Evens Howard, SHOVEL ENGINEER [address], [place], [address], [place] - [facility] 12/17/2022 15:57:41 07/17/2024 text/html ROS as noted in the HPI 39 yr old female presents for follow up on bipolar and anxiety and depression. pt states her current meds are not helping like they once did. pt states she has tried and failed numerous medications. no si or hi Evens Howard, SHOVEL ENGINEER [address], [place], [address], [place] - [facility] 07/17/2024 18:31:17 OBGyn Episode No OBEpisode recorded.
[2025-04-08 05:35] VITALS: BP 136/67; PULSE 57; RESP 18; TEMP 37.1; O2SAT 99; BMI 31.0
--- OUTSIDE RECORDS SUMMARY | 2025-04-08 05:35 | XMS_ITS | Encounter Summary ---
Author Organization [facility] Address [address] [place] [address] Care Team Providers Care Client Manager Name Role Phone Provider, No Known Primary Care Provider Unavail able Encounter Details Date Type Department Care Team (Late st Contact Info) Description 04/04/2025 Results Follow-Up [facility] [address] [place] [address] [address] [place] [address] Alma Murillo MA Social History Tobacco Use Types Packs/Day Years [...] on file documented as of this encounter Miscellaneous Notes * Telephone Encounter - Alam Murillo MA - 04/04/2025 11:28 AM EDT Pt informed. Pt understood. * Telephone Encounter - Alma Murillo MA - 04/04/2025 11:28 AM EDT ----- Message from Sarah Swanson sent at 04/04/2025 10:38 AM EDT ----- Please let patient know I have sent in omnicef 300 mg BID X7 days to [facility]. Idid accidentally send it in to her mail order. ----- Message ----- From: Krystle, [facility] Results In Sent: 04/03/2025 9:10 AM EDT To: Sarah Swanson APRN documented in this encounter Plan of Treatment Not on file documented as of this encounter Visit Diagnoses Not on filedocumented in this encounter Care Teams Client Manager Relationship Specialty Start Date End Date Provider, [place] [address] PCP - General 08/03/24 documented as of this encounter
--- OUTSIDE RECORDS SUMMARY | 2025-04-08 05:35 | XMS_ITS | Referral Summary ---
Author Organization [facility] ([place], [place], [place], [place]) Address [address] [place] [address] Care Team Providers Care Screed Operator Name Role Phone [facility], [facility] Primary Care Provider Encounters Date Type Department Care Team Description 03/17/2025 7:01 PM EDT - 03/18/2025 2:20 PM EDT Hospital Encounter [facility] [address] [place] [address] Agustín Schulz MD Zohary, Yasser, MD Discharge Disposition: Home or Self Care 03/17/2025 Travel from Last 3 Months Allergies Active Allergy Reactions Criticality Noted Date Comments Penicillins Anaphylaxis,Hives,Sw rkisti,Ot her (See Comments) High 07/16/2015 Couldn't breath Medications cholecalciferol , vitamin D3, 25 mcg (1,000 unit) capsule Take 2 capsules (2,000 Units total) by mouth daily. Active fexofenadine (REINA) 180 MG tablet Take 1 tablet (180 mg total) by mouth daily. Active lamoTRIgine (LaMICtal) 100 MG tablet Take 1 tablet (100 mg total) by mouth daily. Active lisdexamfetamin e (VYVANSE) 20 MG capsule Take 1 capsule (20 mg total) by mouth every morning. Max Daily Amount: 20 mg Active desvenlafaxine (PRISTIQ) 50 MG 24 hr tablet Take 1 tablet (50 mg total) by mouth daily. Active amLODIPine (NORVASC) 5 MG tablet Take 1 tablet (5 mg total) by mouth daily. Active propranoloL (INDERAL) 40 MG tablet Take 1 tablet (40 mg total) by mouth daily Takes 40mg daily. Active ergocalciferol (Vitamin D2) 1,250 mcg (50,000 unit) capsule Take 1 capsule (50,000 Units total) by mouth every 7 days. Active omeprazole (PriLOSEC OTC) 20 MG tablet Take 1 tablet (20 mg total) by mouth daily. Active furosemide (LASIX) 20 MG tablet Take 1 tablet (20 mg total) by mouth as needed. Active aspirin 81 MG EC tablet Take 1 tablet (81 mg total) by mouth daily. Active meclizine (ANTIVERT) 25 mg tablet Take 1 tablet (25 mg total) by mouth 3 (three) times daily as needed for dizziness. Active tamsulosin (FLOMAX) 0.4 mg cap 24 hr capsule Take 1 capsule (0.4 mg total) by mouth daily for 30 days. 30 capsule 5 04/18/20 25 Active cefUROXime (CEFTIN) 500 MG tablet Take 1 tablet (500 mg total) by mouth 2 (two) times daily for 7 days. 14 tablet 5 03/25/20 25 oxyCODONE (ROXICODONE) 5 MG immediate release tablet Take 1 tablet (5 mg total) by mouth every 4 (four) hours as needed for up to 10 days Look-alike/ Sound-alike medication. Max Daily Amount: 30 mg 8 tablet 5 03/28/20 25 Active Problems Problem Noted Date Diagnosed Date Kidney stone 03/17/2025 Social History Tobacco Use Types Packs/Day Years [...] any time in the past [address] [facility], were you homeless or living in a senior living (including now)? No 03/18/2025 Utilities Answer Date [...] living situation today? I have a [facility] place to live 03/18/2025 Think about the [...] Do you speak a language other than Panamanian at ho hi? 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 Gender Identity Not on file Sexual Orientation [...] - - Body Mass Index - - Plan of Treatment Not on file Procedures Procedure Name Priority Date/Time Associated Diagnosis Comments PROBNP Routine 03/18/2025 7:09 AM EDT MAGNESIUM Routine 03/18/2025 7:09 AM EDT LIPID PANEL Routine 03/18/2025 7:09 AM EDT LIPASE Routine 03/18/2025 7:09 AM EDT COMPREHENSIVE METABOLIC PANEL Routine 03/18/2025 7:09 AM EDT PT/INR, PTT Routine 03/18/2025 6:32 AM EDT LACTIC ACID WITH REFLEX Routine 03/18/2025 6:32 AM EDT HIGH SENSITIVITY TROPONIN I Routine 03/18/2025 6:32 AM EDT HEMOGLOBIN A1C Routine 03/18/2025 6:32 AM EDT CBC HEMOGRAM (SJ-BKR) Routine 03/18/2025 6:32 AM EDT FS_MODEL_IP_ECG 12-LEAD Routine 03/17/2025 8:21 PM EDT CREATINE KINASE (CK) Routine 03/17/2025 8:08 PM EDT EKG-SCANNED 03/17/2025 from Last 3 Months Results * (ABNORMAL) PROBNP (03/18/2025 7:09 AM EDT) [facility] ProBNP (pg/mL) 120(H) 16 - 105 pg/mL 03/18/2025 7:41 AM EDT [facility] Blood Venipuncture / Unknown 03/18/2025 7:09 AM EDT 03/18/2025 7:09 AM EDT Narrative [facility] - 03/18/2025 7:41 AM EDT As of November 01, 2024: NT-ProBNP is a new test on our [employer] Al[employer] Immunoassay analyzer. Please review new age and gender specific reference ranges. us Angle Davis MD LAB BLOOD ORDERABLES Final Resu lt [facility] [address] [place] [address], [facility] [phone] * Magnesium (03/18/2025 7:09 AM EDT) Magnesium 1.8 1.6 - 2.6 mg/dL 03/18/2025 7:41 AM EDT [facility] Blood Venipuncture / Unknown 03/18/2025 7:09 AM EDT 03/18/2025 7:09 AM EDT us Angle Davis MD LAB BLOOD ORDERABLES Final Resu lt [facility] [address] [phone] * Lipase (03/18/2025 7:09 AM EDT) Lipase 24 <=60 U/L 03/18/2025 7:41 AM EDT [facility] Blood Venipuncture / Unknown 03/18/2025 7:09 AM EDT 03/18/2025 7:09 AM EDT Angle Davis MD LAB BLOOD ORDERABLES Final Resu lt Performing Organization Address City/[facility]/ZIP Co de Phone Number [facility] [address] [phone] * (ABNORMAL) Lipid panel (03/18/2025 7:09 AM EDT) Triglycerides 113 <=149 mg/dL 03/18/2025 7:41 AM EDT [facility] Comment: Normal: < 150 mg/dL Borderline High: 150 to 199 mg/dL High: 200 to 499 mg/dL Very High: >/= 500 mg/dL Cholesterol 143 100 - 199 mg/dL 03/18/2025 7:41 AM EDT [facility] Comment: Child: Desirable: < 170 mg/dL Borderline: 170 to 199 mg/dL High: >/= 200 mg/dL Adult: Desirable: < 200 mg/dL Borderline: 200 to 239 mg/dL High: >/= 240 mg/dL HDL Cholesterol 25 See Comment mg/dL 03/18/2025 7:41 AM EDT [facility] Comment: Major risk factor for heart disease: < 40 mg/dL Negative risk factor for heart disease: >/= 60 mg/dL LDL Cholesterol, Calculated 95 0 - 100 mg/dL 03/18/2025 7:41 AM EDT [facility] Comment: Unable to calculate Optimal: < 100 mg/dL Near or above optimal: 100 to 129 mg/dL Borderline high: 130 to 159 mg/dL High: 160 to 189 mg/dL Very high: >/= 190 mg/dL Based on AHA/NCEP Guidelines LDl/HDL Ratio 4 0 - 4 03/18/2025 7:41 AM EDT [facility] Comment:Unable to calculate. Cholesterol/HDL ratio 5.7(H) 0.0 - 5.0 mg/dL 03/18/2025 7:41 AM EDT [facility] VLDL Cholesterol 22.6 5 - 40 mg/dL 03/18/2025 7:41 AM EDT [facility] Comment:Unable to calculate Blood Venipuncture / Unknown 03/18/2025 7:09 AM EDT 03/18/2025 7:09 AM EDT us Angle Davis MD LAB BLOOD ORDERABLES Final Resu lt [facility] [address] [phone] * (ABNORMAL) Comprehensive metabolic panel (03/18/2025 7:09 AM EDT) Sodium 141 136 - 145 meq/L 03/18/2025 7:41 AM EDT [facility] Potassium 4.1 3.4 - 5.1 meq/L 03/18/2025 7:41 AM T [facility] Chloride 111 98 - 112 meq/L 03/18/2025 7:41 AM T [facility] CO2 25 22 - 29 meq/L 03/18/2025 7:41 AM EDT [facility] Calcium 8.4 8.4 - 10.2 mg/dL 03/18/2025 7:41 AM EDT [facility] Glucose 84 74 - 100 mg/dL 03/18/2025 7:41 AM [facility] BUN 6.2(L) 7.0 - 18.7 mg/dL 03/18/2025 7:41 AM [facility] Creatinine 0.63 0.57 - 1.11 mg/dL 03/18/2025 7:41 AM [facility] BUN/Creatinine 10 8 - 20 03/18/2025 7:41 AM [facility] eGFR (mL/min/1.73m2) 116 >=60 mL/min/1. 73m2 03/18/2025 7:41 AM [facility] Comment:ESTIMATED GFR IS NOT ACCURATE CREATININE CLEARANCE IN PREDICTING GLOMERULAR FILTRATION RATE. ESTIMATED GFR IS NOT APPLICABLE FOR DIALYSIS PATIENTS. Albumin 3.1(L) 3.5 - 5.0 g/dL 03/18/2025 7:41 AM [facility] Alkaline Phosphatase 73 40 - 150 U/L 03/18/2025 7:41 AM [facility] ALT 7 <=34 U/L 03/18/2025 7:41 AM [facility] Comment: ALT2 reagent used for testing does not contain P5P supplementation and therefore may miss ALT elevations in patients with B6 deficiency. This population may be as high as 10% in the [place], with risk factors including malabsorption, drug interactions, and alcoholic hepatitis. AST 13 11 - 34 U/L 03/18/2025 7:41 AM [facility] Comment: AST2 reagent used for testing does not contain P5P supplementation and therefore may miss AST elevations in patients with B6 deficiency. This population may be as high as 10% in the [place], with risk factors including malabsorption, drug interactions, and alcoholic hepatitis. Total Bilirubin 0.3 0.2 - 1.2 mg/dL 03/18/2025 7:41 AM [facility] Protein, Total 6.0(L) 6.4 - 8.3 g/dL 03/18/2025 7:41 AM [facility] Globulin 2.9 2.5 - 4.1 g/dL 03/18/2025 7:41 AM [facility] Anion Gap 9 4 - 12 03/18/2025 7:41 AM [facility] A/G Ratio 1.1 0.7 - 1.9 03/18/2025 7:41 AM EDT [facility] Osmolality Calc 278.1 mOsm/kg 7:41 AM EDT [facility] Blood Venipuncture / Unknown 03/18/2025 7:09 AM EDT 03/18/2025 7:09 AM EDT us Angle Davis MD LAB BLOOD ORDERABLES Final Resu lt [facility] [address] [phone] * CBC - Hemogram (SJ-BKR) (03/18/2025 6:32 AM EDT) WBC 7.9 4.0 - 10.0 K/ L 03/18/2025 7:17 AM EDT [facility] RBC 4.12 3.93 - 5.22 M/ L 03/18/2025 7:17 AM EDT [facility] Hemoglobin 12.8 11.2 - 15.7 GM/DL 03/18/2025 7:17 AM EDT [facility] Hematocrit 37.9 34.1 - 44.9 % 03/18/2025 7:17 AM EDT [facility] MCV 92 79 - 95 fL 03/18/2025 7:17 AM EDT [facility] MCH 31.1 25.6 - 32.2 pg 03/18/2025 7:17 AM EDT [facility] MCHC 33.8 32.2 - 35.5 GM/DL 03/18/2025 7:17 AM EDT [facility] RDW 12.2 11.7 - 14.4 % 03/18/2025 7:17 AM EDT [facility] Platelets 211 140 - 375 K/CU MM 03/18/2025 7:17 AM EDT [facility] MPV 10.0 9.4 - 12.3 fL 03/18/2025 7:17 AM EDT [facility] Blood Venipuncture / Unknown 03/18/2025 6:32 AM EDT 03/18/2025 7:10 AM EDT us Angle Davis MD LAB BLOOD ORDERABLES Final Resu lt Performing Organization Address [facility] Co de Phone Number [facility] [address] [phone] * PT/INR, PTT (03/18/2025 6:32 AM EDT) aPTT 24.9 22.0 - 32.0 seconds 03/18/2025 7:36 AM EDT [facility] Protime 10.2 9.0 - 12.0 seconds 03/18/2025 7:36 AM EDT [facility] INR 0.91 0.80 - 1.10 03/18/2025 7:36 AM EDT [facility] Blood Venipuncture / Unknown 03/18/2025 6:32 AM EDT 03/18/2025 7:10 AM EDT us Angle Davis MD LAB BLOOD ORDERABLES Final Resu lt Performing Organization Address [facility] Co de Phone Number [facility] [address] [phone] * Lactic Acid with reflex (SJ) (03/18/2025 6:32 AM EDT) Lactic Acid Level (mmol/L) 0.7 0.5 - 2.2 mmol/L 03/18/2025 7:37 AM EDT [facility] Blood Venipuncture / Unknown 03/18/2025 6:32 AM EDT 03/18/2025 7:09 AM EDT Narrative [facility] - 03/18/2025 7:37 AM EDT Specimen slightly hemolyzed us Angle Davis MD LAB BLOOD ORDERABLES Final Resu lt [facility] [address] [phone] * High Sensitivity Troponin I (03/18/2025 6:32 AM EDT) Troponin I High Sensitivity (pg/mL) <5.0 <=14 pg/mL 03/18/2025 7:43 AM EDT [facility] Blood Venipuncture / Unknown 03/18/2025 6:32 AM EDT 03/18/2025 7:09 AM EDT Narrative [facility] - 03/18/2025 7:43 AM EDT Applicable to [facility] only. Effective September 04 the lab will begin using a new chemistry analyzer. HsTroponin methodology, reference ranges and critical values have changed. Angle Davis MD LAB BLOOD ORDERABLES Final Resu lt Performing Organization Address [facility] Co de Phone Number [facility] [address] [phone] * Hemoglobin A1c (03/18/2025 6:32 AM EDT) Pathologist [facility] Hemoglobin A1C 4.9 4.0 - 5.6 % 03/18/2025 7:50 AM EDT [facility] Comment: Hemoglobin A1C levels are related to mean glucose during the preceding 2-3 months. Less than 7% demonstrates glycemic control in diabetic patients. Hemoglobin AlC % Suggested Diagnosis > or = 6.5 Diabetic 5.7 - 6.4 Prediabetic <5.7 Non-diabetic eAVG Glucose 93.93 70 - 126 mg/dL 03/18/2025 7:50 AM EDT [facility] Blood Venipuncture / Unknown 03/18/2025 6:32 AM EDT 03/18/2025 7:10 AM EDT Angle Davis MD LAB BLOOD ORDERABLES Final Resu lt Performing Organization Address City/[facility] Co de Phone Number [facility] [address] [phone] * ECG 12 lead (03/17/2025 8:21 PM EDT) VENTRICULAR RATE EKG/MIN 57 BPM GE MUSE ATRIAL RATE (MCT) 57 BPM GE MUSE SD Interval 186 ms GE MUSE QRS-INTERVAL (MSEC) 102 ms GE MUSE QT Interval 434 ms GE MUSE QTC Interval 422 ms GE MUSE P [place] 58 degrees GE MUSE R AXIS (MCT) 18 degrees GE MUSE T Wave [place] 37 degrees GE MUSE [place] Diagnosis Sinus bradycardia Cannot rule out Anterior infarct , age undetermined Abnormal ECG No previous ECGs available Confirmed by Dora Dow ([id number]) on 03/22/2025 5:38:11 PM GE MUSE 03/17/2025 8:21 PM EDT 03/22/2025 5:38 PM EDT Angle Davis MD ECG ORDERABLES Final Result Performing Organization Address City/[facility]/ZIP Co de Phone Number GE MUSE * Creatine Kinase (CK) (03/17/2025 8:08 PM EDT) Total CK 30 29 - 168 U/L 03/17/2025 8:41 PM EDT [facility] Blood Venipuncture / Unknown 03/17/2025 8:08 PM EDT 03/17/2025 8:20 PM EDT Angle Davis MD LAB BLOOD ORDERABLES Final Resu lt Performing Organization Address City/[facility]/ZIP Co de Phone Number [facility] [address] [phone] * EKG-SCANNED (03/17/2025) Narrative 03/17/2025 Ordered by an unspecified provider. us Default Scanning Provider SCAN ORDERS Final Result from Last 3 Months Insurance [facility] Advance Directives For more information, please contact: [phone] * Full Code (Latest Code Status on File) Date Activated Date Inactivated Comments 03/17/2025 6:11 PM 03/18/2025 3:20 PM Care Teams Screed Operator Relationship Specialty Start Date End Date [facility], [facility] [place] [address] PCP - General 03/17/25
--- OUTSIDE RECORDS SUMMARY | 2025-04-08 05:35 | XMS_ITS ---
Author Organization Unknown ENCOUNTERS Encounter Performer Location Date Diagnosis Diagnosis Status Pre Admit [facility] [address] [place] [address] [id number] Emergency [facility] [address] [place] [address] [id number] Pre Admit [place] [facility] [address] [place] [address] [id number] Emergency [facility] [place] [address] [place] [address] [id number] [facility] Emergency [place] [address] [place] [address] [id number] [place] *Note: Encounters from your own facility or health system may be excluded. Allergies, Adverse Reactions, Alerts Allergen Type Severity Identification Date Penicillin propensity to adverse reactions 3 [id number] Medications Name Date Quantity Days Supplied [facility] Number
--- OUTSIDE RECORDS SUMMARY | 2025-04-08 05:35 | XMS_ITS | Clinical Summary ---
Author Organization [facility] ([place], [place], [place], [place]) Address [address] [place] [address] Care Team Providers Care Network Operations Lead Name Role Phone [facility] Jose, Find-A-Doc Primary Care Provider Allergies Active Allergy Reactions Criticality Noted Date Comments Penicillins Anaphylaxis,Hives,Prasanna berry,Ot her (See Comments) High 07/16/2015 Couldn't breath [...] Noted Date Diagnosed Date Kidney stone 03/17/2025 Encounters Date Type Department Care Team Description 03/17/2025 7:01 PM EDT - 03/18/2025 2:20 PM EDT Hospital Encounter [facility] [address] [place] [address] Agustín Schulz MD Zohary, Yasser, MD Discharge Disposition: Home or Self Care 03/17/2025 Travel from Last 3 Months Social History Tobacco Use Types Packs/Day Years [...] any time in the past 12 m [facility], were you homeless or living in a custodial (including now)? No 03/18/2025 Utilities Answer Date [...] Do you speak a language other than [place] at ho ca? No 03/18/2025 Do you want help with [...] on file Legal Sex Female 12:01 PM [employer] Gender Identity Not on file Sexual Orientation [...] Mass Index - - Plan of Treatment Health Maintenance Due Date Last Done Comments Depression Screening (12+) 1997 HIV Screening 2000 Hepatitis C Screening 2003 DTAP/TDAP/TD VACCINES (1 - Tdap) 2004 Pap Smear 2006 COVID-19 VACCINE ( - 2023-2 5 season) 2025 Influenza Vaccine (#1) 2025 Tobacco Cessation Counseling and Screening (12+) 03/18/2026 03/18/2025 Pneumococcal Vaccine: 0-49 Years Aged Out No longer eligible based on patient's age to complete this topic Procedures Procedure Name Priority Date/Time Associated Diagnosis [...] * (ABNORMAL) PROBNP (03/18/2025 7:09 AM EDT) ProBNP (pg/mL) 120(H) 16 - 105 pg/mL 03/18/2025 7:41 AM EDT [facility] Blood Venipuncture / Unknown 03/18/2025 7:09 AM EDT 03/18/2025 7:09 AM EDT Narrative [facility] - 03/18/2025 7:41 AM EDT As of November 01, 2024: NT-ProBNP is a new test on our ScribeSt[employer] Alinity Immunoassay analyzer. Please review new age and gender specific reference ranges. us Angle Davis MD LAB BLOOD ORDERABLES Final Resu lt Performing Organization Address City/[facility]/ZIP Co de Phone Number [facility] [address] [phone] * Magnesium (03/18/2025 7:09 AM EDT) Magnesium 1.8 1.6 - 2.6 mg/dL 03/18/2025 7:41 AM EDT [facility] Blood Venipuncture / Unknown 03/18/2025 7:09 AM EDT 03/18/2025 7:09 AM EDT us Angle Davis MD LAB BLOOD ORDERABLES Final Resu lt Performing Organization Address [facility]/ZIP Co de Phone Number [facility] [address] [phone] * Lipase (03/18/2025 7:09 AM EDT) Lipase 24 <=60 U/L 03/18/2025 7:41 AM EDT [facility] Blood Venipuncture / Unknown 03/18/2025 7:09 AM EDT 03/18/2025 7:09 AM EDT us Angle Davis MD LAB BLOOD ORDERABLES Final Resu lt Performing Organization Address [facility] Co de Phone Number [facility] [address] [phone] * (ABNORMAL) Lipid panel (03/18/2025 7:09 AM EDT) Triglycerides 113 <=149 mg/dL 03/18/2025 7:41 AM EDT [facility] Comment: Normal: < 150 mg/dL Borderline High: 150 to 199 mg/dL High: 200 to 499 mg/dL Very High: >/= 500 mg/dL Cholesterol 143 100 - 199 mg/dL 03/18/2025 7:41 AM EDT [facility] Comment: Child: Desirable: < 170 mg/dL Borderline: 170 to 199 mg/dL High: >/= 200 mg/dL Adult: Desirable: < 200 mg/dL Borderline: 200 to 239 mg/dL High: >/= 240 mg/dL HDL Cholesterol 25 See Comment mg/dL 03/18/2025 7:41 AM EDT [facility] Comment: Major risk factor for heart disease: < 40 mg/dL Negative risk factor for heart disease: >/= 60 mg/dL LDL Cholesterol, Calculated 95 0 - 100 mg/dL 03/18/2025 7:41 AM EDT [facility] Comment: Unable to calculate Optimal: < 100 mg/dL Near or above optimal: 100 to 129 mg/dL Borderline high: 130 to 159 mg/dL High: 160 to 189 mg/dL Very high: >/= 190 mg/dL Based on AHA/NCEP Guidelines LDl/HDL Ratio 4 0 - 4 03/18/2025 7:41 AM EDT [facility] Comment:Unable to calculate. Cholesterol/HDL ratio 5.7(H) 0.0 - 5.0 mg/dL 03/18/2025 7:41 AM EDT [facility] VLDL Cholesterol 22.6 5 - 40 mg/dL 03/18/2025 7:41 AM EDT [facility] Comment:Unable to calculate Blood Venipuncture / Unknown 03/18/2025 7:09 AM EDT 03/18/2025 7:09 AM EDT us Angle Davis MD LAB BLOOD ORDERABLES Final Resu lt [facility] [address] [place] [id number] [phone] * (ABNORMAL) Comprehensive metabolic panel (03/18/2025 7:09 AM EDT) Sodium 141 136 - 145 meq/L 03/18/2025 7:41 AM EDT [facility] Potassium 4.1 3.4 - 5.1 meq/L 03/18/2025 7:41 AM [facility] Chloride 111 98 - 112 meq/L 03/18/2025 7:41 AM [facility] CO2 25 22 - 29 meq/L 03/18/2025 7:41 AM [facility] Calcium 8.4 8.4 - 10.2 mg/dL 03/18/2025 7:41 AM [facility] Glucose 84 74 - 100 mg/dL 03/18/2025 7:41 AM [facility] BUN 6.2(L) 7.0 - 18.7 mg/dL 03/18/2025 7:41 AM [facility] Creatinine 0.63 0.57 - 1.11 mg/dL 03/18/2025 7:41 AM [facility] BUN/Creatinine 10 8 - 20 03/18/2025 7:41 AM [facility] eGFR (mL/min/1.73m2) 116 >=60 mL/min/1. 73m2 03/18/2025 7:41 AM [facility] Comment:ESTIMATED GFR IS NOT ACCURATE CREATININE CLEARANCE IN PREDICTING GLOMERULAR FILTRATION RATE. ESTIMATED GFR IS NOT APPLICABLE FOR DIALYSIS PATIENTS. Albumin 3.1(L) 3.5 - 5.0 g/dL 03/18/2025 7:41 AM [facility] Alkaline Phosphatase 73 40 - 150 U/L 03/18/2025 7:41 AM [facility] ALT 7 <=34 U/L 03/18/2025 7:41 AM [facility] Comment: ALT2 reagent used for testing does not contain P5P supplementation and therefore may miss ALT elevations in patients with B6 deficiency. This population may be as high as 10% in the [place], with risk factors including malabsorption, drug interactions, and alcoholic hepatitis. AST 13 11 - 34 U/L 03/18/2025 7:41 AM [facility] Comment: AST2 reagent used for testing does not contain P5P supplementation and therefore may miss AST elevations in patients with B6 deficiency. This population may be as high as 10% in the [place], with risk factors including malabsorption, drug interactions, and alcoholic hepatitis. Total Bilirubin 0.3 0.2 - 1.2 mg/dL 03/18/2025 7:41 AM EDT [facility] Protein, Total 6.0(L) 6.4 - 8.3 g/dL 03/18/2025 7:41 AM EDT [facility] Globulin 2.9 2.5 - 4.1 g/dL 03/18/2025 7:41 AM EDT [facility] Anion Gap 9 4 - 12 03/18/2025 7:41 AM EDT [facility] A/G Ratio 1.1 0.7 - 1.9 03/18/2025 7:41 AM EDT [facility] Osmolality Calc 278.1 mOsm/kg 7:41 AM EDT [facility] Blood Venipuncture / Unknown 03/18/2025 7:09 AM EDT 03/18/2025 7:09 AM EDT us Angle Davis MD LAB BLOOD ORDERABLES Final Resu lt [facility] [address] [phone] * CBC - Hemogram (SJ-BKR) (03/18/2025 6:32 AM EDT) WBC 7.9 4.0 - 10.0 K/ L 03/18/2025 7:17 AM EDT [facility] RBC 4.12 3.93 - 5.22 M/ L 03/18/2025 7:17 AM EDT [facility] Hemoglobin 12.8 11.2 - 15.7 GM/DL 03/18/2025 7:17 AM EDT [facility] Hematocrit 37.9 34.1 - 44.9 % 03/18/2025 7:17 AM EDT [facility] MCV 92 79 - 95 fL 03/18/2025 7:17 AM EDT [facility] MCH 31.1 25.6 - 32.2 pg 03/18/2025 7:17 AM EDT [facility] MCHC 33.8 32.2 - 35.5 GM/DL 03/18/2025 7:17 AM EDT [facility] RDW 12.2 11.7 - 14.4 % 03/18/2025 7:17 AM EDT [facility] Platelets 211 140 - 375 K/CU MM 03/18/2025 7:17 AM EDT [facility] MPV 10.0 9.4 - 12.3 fL 03/18/2025 7:17 AM EDT [facility] Blood Venipuncture / Unknown 03/18/2025 6:32 AM EDT 03/18/2025 7:10 AM EDT us Angle Davis MD LAB BLOOD ORDERABLES Final Resu lt Performing Organization Address City/[facility]/ZIP Co de Phone Number [facility] [address] [phone] * PT/INR, PTT (03/18/2025 6:32 AM EDT) aPTT 24.9 22.0 - 32.0 seconds 03/18/2025 7:36 AM EDT [facility] Protime 10.2 9.0 - 12.0 seconds 03/18/2025 7:36 AM EDT [facility] INR 0.91 0.80 - 1.10 03/18/2025 7:36 AM EDT [facility] Blood Venipuncture / Unknown 03/18/2025 6:32 AM EDT 03/18/2025 7:10 AM EDT us Angle Davis MD LAB BLOOD ORDERABLES Final Resu lt [facility] [address] [phone] * Lactic Acid with reflex (SJ) (03/18/2025 6:32 AM EDT) Lactic Acid Level (mmol/L) 0.7 0.5 - 2.2 mmol/L 03/18/2025 7:37 AM EDT [facility] Blood Venipuncture / Unknown 03/18/2025 6:32 AM EDT 03/18/2025 7:09 AM EDT [facility] - 03/18/2025 7:37 AM EDT Specimen slightly hemolyzed Angle Davis MD LAB BLOOD ORDERABLES Final Resu lt Performing Organization Address [facility] Phone Number [facility] [address] [phone] * High Sensitivity Troponin I (03/18/2025 6:32 AM EDT) Troponin I High Sensitivity (pg/mL) <5.0 <=14 pg/mL 03/18/2025 7:43 AM EDT [facility] Blood Venipuncture / Unknown 03/18/2025 6:32 AM EDT 03/18/2025 7:09 AM EDT [facility] - 03/18/2025 7:43 AM EDT Applicable to [facility] only. Effective September 04 the lab will begin using a new chemistry analyzer. HsTroponin methodology, reference ranges and critical values have changed. Angle Davis MD LAB BLOOD ORDERABLES Final Resu lt Performing Organization Address [facility] Co de Phone Number [facility] [address] [phone] * Hemoglobin A1c (03/18/2025 6:32 AM EDT) Hemoglobin A1C 4.9 4.0 - 5.6 % 03/18/2025 7:50 AM EDT [facility] Comment: Hemoglobin A1C levels are related to mean glucose during the preceding 2-3 months. Less than 7% demonstrates glycemic control in diabetic patients. Hemoglobin AlC % Suggested Diagnosis > or = 6.5 Diabetic 5.7 - 6.4 Prediabetic <5.7 Non-diabetic eAVG Glucose 93.93 70 - 126 mg/dL 03/18/2025 7:50 AM EDT [facility] Blood Venipuncture / Unknown 03/18/2025 6:32 AM EDT 03/18/2025 7:10 AM EDT Angle Davis MD LAB BLOOD ORDERABLES Final Resu lt [facility] [address] [place] [id number] [phone] * ECG 12 lead (03/17/2025 8:21 PM EDT) VENTRICULAR RATE EKG/MIN 57 BPM GE MUSE ATRIAL RATE (MCT) 57 BPM GE MUSE VA Interval 186 ms GE MUSE QRS-INTERVAL (MSEC) 102 ms GE MUSE QT Interval 434 ms GE MUSE QTC Interval 422 ms GE MUSE P [place] 58 degrees GE MUSE R AXIS (MCT) 18 degrees GE MUSE T Wave [place] 37 degrees GE MUSE [place] Diagnosis Sinus bradycardia Cannot rule out Anterior infarct , age undetermined Abnormal ECG No previous ECGs available Confirmed by Dora Dow ([id number]) on 03/22/2025 5:38:11 PM GE MUSE 03/17/2025 8:21 PM EDT 03/22/2025 5:38 PM EDT us Angle Davis MD ECG ORDERABLES Final Result Performing Organization Address City/[facility]/ZIP Co de Phone Number GE MUSE * Creatine Kinase (CK) (03/17/2025 8:08 PM EDT) Total CK 30 29 - 168 U/L 03/17/2025 8:41 PM EDT [facility] Blood Venipuncture / Unknown 03/17/2025 8:08 PM EDT 03/17/2025 8:20 PM EDT Angle Davis MD LAB BLOOD ORDERABLES Final Resu lt [facility] [address] [place] [address], [facility] [phone] * EKG-SCANNED (03/17/2025) Narrative 03/17/2025 Ordered by an unspecified provider. us Default Scanning Provider SCAN ORDERS Final Result from Last 3 Months Insurance [facility] Advance Directives For more information, please contact: [phone] * Full Code (Latest Code Status on File) Date Activated Date Inactivated Comments 03/17/2025 6:11 PM 03/18/2025 3:20 PM Care Teams Network Operations Lead Relationship Specialty Start Date End Date [facility] Connection, [facility]Doc [facility] [place] [address] PCP - General 03/17/25
--- OUTSIDE RECORDS SUMMARY | 2025-04-08 05:35 | XMS_ITS | Encounter Summary ---
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
[2025-04-08 05:39] VITALS: BP 136/67; PULSE 57; RESP 18; TEMP 37.1; O2SAT 99
[2025-04-08 05:46] LABS: Microscopic, Urine URINE MICROSCOPIC (MICROSCOPIC)
--- NOTE | 2025-04-08 05:48 | HMH.EDGENADL ---
Discharge Plan Disposition Patient Disposition: Home, Self-Care Prescriptions Prescriptions: New oxycodone 5 mg tablet 5 mg PO Q6H PRN (Reason: pain) Qty: 12 0RF ondansetron 4 mg tablet,disintegrating 4 mg PO Q6H PRN (Reason: nausea and vomiting) Qty: 16 0RF lidocaine 5 % adhesive patch,medicated 1 patch topical DAILY Qty: 15 0RF Rx Instructions: leave on most painful area for up to 12 hrs No Action prednisone 20 MG tablet 20 mg PO BID Qty: 10 0RF benzonatate 100 MG capsule 100 mg PO TIDP PRN (Reason: Cough) Qty: 20 0RF doxycycline monohydrate 100 MG capsule 100 mg PO BID Qty: 10 0RF Referrals Follow up/Referrals: Provider,Referral, MD [Primary Care Provider, Medical] - See instructions Activity Restrictions/Add. Instructions Additional Instructions/Restrictions: You are being prescribed oxycodone to help with severe pain. In addition to this you can take 800 mg of ibuprofen as well as 1000 mg of Tylenol every 6 hours as needed to help with pain. If you do not need to take the oxycodone, you do not have to take it. You can also use the lidocaine patches to help with your symptoms. In addition to this you are being prescribed Zofran to help with nausea. I do encourage you to follow-up with your urologist closely regarding your continued symptoms. If you develop any new or worsening symptoms, such as uncontrolled pain, fever, or if you become concerned for your help for any reason, return to the emergency department for evaluation. Clinical Impressions Clinical Impression: Right distal ureteral calculus Print Language Print Language: Czech Discharge ED Provider: Saurabh Moreno General Adult HPI <Saurabh Moreno MD - Last Filed: 04/08/25 07:04> General Chief complaint: PAIN Stated complaint: Possible Kidney Stone Left Side Kidney Pain Time Seen by Provider: 04/08/25 05:15 Mode of Arrival: Ambulatory Source of Information: Patient Description of Symptoms (Recalled from ER Triage Doc. by RN): Patient states around 0400 she began having 10/10 left flank pain. States she was seen at [facility] 3-4 weeks ago where they found a 2mm kidney stone. Patient states she still has not passed it. Patient denies trouble urinating or painful urination. History of Present Illness HPI narrative: 39-year-old female with history of kidney stone presents for worsening left flank pain. She was seen about 3 weeks ago and was noted to have a 2 mm proximal kidney stone at that time. She does not believe she has passed it. She started having severe worsening of her pain this morning. She had a UTI when she was initially diagnosed and was transferred to [place]. She says they did not do any surgery, they put her on antibiotics and gave her Flomax and discharged her. She reports that she has been having some chills and thinks she still has a urinary tract infection. She believes she is on ciprofloxacin for her UTI. Related Data Previous Rx's ?Medication ?Instructions ?Recorded benzonatate 100 mg capsule 100 mg PO TIDP PRN Cough #20 caps 10/11/20 doxycycline monohydrate 100 mg 100 mg PO BID #10 caps 10/11/20 capsule prednisone 20 mg tablet 20 mg PO BID #10 tabs 10/11/20 lidocaine 5 % topical patch 1 patch topical DAILY #15 ea 04/08/25 ondansetron 4 mg disintegrating 4 mg PO Q6H PRN nausea and 04/08/25 tablet vomiting #16 tabs oxycodone 5 mg tablet 5 mg PO Q6H PRN pain #12 tabs 04/08/25 Allergies Allergy/AdvReac Type Severity Reaction Status Date / Time Penicillins Allergy Hives Verified 04/08/25 05:51 Penicillin Allergy Intermediate I-HIVES Uncoded 05/31/17 14:44 [facility] <Saurabh Moreno MD - Last Filed: 04/08/25 07:04> [facility] Disclaimer: The information contained in this section may have been updated after the patient was seen, as this information can be updated by other users. Social History Smoking Status: Never smoker alcohol intake: never current occupational status: employed Travel in the last 8 weeks?: None Have you lived/traveled outside US in past 30 days?: No Contact w/someone who lives/traveled outside US past 30 days?: No Exposure to someone with infectious disease in past 14 days?: No Do you have a fever (greater than 100.4 F or 38 C)?: No Have you tested positive for COVID-19?: No Exposed to someone with COVID-19 in past 14 days?: No Do you have a sore throat?: No Do you have a cough?: No Do you have any weakness?: No Do you have any diarrhea?: No Are you experiencing any unusual bleeding?: No Do you have any muscle aches/pain?: Yes Do you have any abdominal pain?: No Are you experiencing loss of taste or smell?: No Other Medical History Have you received the Flu Vaccine for this season: Yes Have you received the Pneumonia Vaccine: No <Saurabh Moreno MD - Last Filed: 04/08/25 07:04> ROS Obtained: Yes All systems reviewed & no additional complaints except as documented Physical Exam <Saurabh Moreno MD - Last Filed: 04/08/25 07:04> General General appearance: alert and in distress Head Head exam: atraumatic and normocephalic Eye Eye exam: Present normal appearance, PERRL and EOMI ENT ENT exam: Present normal oropharynx and normal external ear exam Neck Neck exam: Present normal inspection and full ROM Chest Chest inspection: Present normal inspection and symmetric chest wall rise; Absent tenderness Respiratory Respiratory exam: Present normal lung sounds bilaterally; Absent respiratory distress Cardiovascular Cardiovascular exam: Present regular rate and normal rhythm Abdominal Exam Abdominal exam: Present soft; Absent distention, tenderness or guarding Extremities Exam Extremities exam: Present normal inspection; Absent edema or joint swelling Back Exam Back exam: Present normal inspection and CVA tenderness (L) Neurological Exam Neurological exam: Present alert and oriented X3; Absent motor sensory deficit Psychiatric Psychiatric exam: Present normal affect and normal mood Skin Skin exam: Present warm, dry and normal color Lymphatic Lymphatic Findings: no adenopathy Medical Decision Making <Saurabh Moreno MD - Last Filed: 04/08/25 07:04> Medical Records Medical records reviewed: Yes I reviewed the patient's medical records. Screening: Per USPSTF and CDC recommendations, given the prevalence of disease in our region, it is our hospital?s policy to screen for HIV and viral Hepatitis for all patients aged 18 and over and those with ongoing risk factors. Juan Miguel Inquiry Pt receiving controlled substance: No Juan Miguel was queried for this patient: No Vital Signs: 04/08/25 05:35 04/08/25 05:39 04/08/25 06:32 Temperature 98.7 F 98.7 F Temperature Source Oral Pulse Rate 57 L 62 Pulse Rate [Left] 57 L Respiratory Rate 18 18 17 Blood Pressure 136/67 116/66 Blood Pressure [Right Arm] 136/67 Blood Pressure Mean [Right Arm] 90 02 Sat by Pulse Oximetry 99 99 99 Oxygen Delivery Method Room Air Lab Data Lab results reviewed: Yes I reviewed the patient's lab results. Lab Results 04/08/25 05:33: Urine Color Yellow, Urine Appearance Clear, Urine pH 5.5, Ur Specific [place] >= 1.030, Urine Protein Trace, Urine Glucose (UA) Negative, Urine Ketones Trace, Urine Blood 3+ A, Urine Nitrate Negative, Urine Bilirubin 1+ A, Urine Urobilinogen 1.0, Ur Leukocyte Esterase Negative, Urine RBC Tntc, Ur Squamous Epith Cells 50-100, Urine Bacteria 2+, Urine HCG, Qual Negative 04/08/25 05:45: WBC 11.0 H, RBC 4.73, Hgb 14.2, Hct 43.2, MCV 91.3, MCH 30.0, MCHC 32.9, RDW 12.2, Plt Count 259, MPV 9.8, Neut % (Auto) 73.0, Lymph % (Auto) 17.8, [place] % (Auto) 6.6, Eos % (Auto) 1.4, Baso % (Auto) 0.8, Neut # (Auto) 8.1 H, Lymph # (Auto) 2.0, [place] # (Auto) 0.7, Eos # (Auto) 0.2, Baso # (Auto) 0.1, Sodium 136, Potassium 3.7, Chloride 102, Carbon Dioxide 28, Anion Gap 9.7, BUN 11, Creatinine 0.70, Estimated Creat Clear 162, Estimated GFR 93, Est GFR ( Amer) 113, Glucose 126 H, Calcium 8.7, Total Bilirubin 0.6, AST 26, ALT 18, Alkaline Phosphatase 94, Total Protein 7.2, Albumin 4.1, Globulin 3.1, Albumin/Globulin Ratio 1.3 04/08/25 05:45 04/08/25 05:45 Orders (Tests/Meds): ED MEDICATIONS Generic Name Dose Route Start Last Admin Trade Name Freq PRN Reason Stop Dose Admin Lactated Ringer's 1,000 mls @ 999 mls/hr 04/08/25 07:01 04/08/25 07:05 Lactated Ringer's 1000 Ml Bag IV 04/08/25 08:01 999 mls/hr .Q1H1M ONE Administration Sodium Chloride 10 ml 04/08/25 06:26 04/08/25 06:27 Sodium Chloride 0.9% 10ml Syr (Rad Only) IV 05/08/25 06:25 10 ml NEEDED PRN Administration Maintain IV Site Discontinued Medications Generic Name Dose Route Start Last Admin Trade Name Freq PRN Reason Stop Dose Admin Acetaminophen 1,000 mg 04/08/25 05:46 04/08/25 05:52 Acetaminophen 500mg Tab PO 04/08/25 05:47 1,000 mg ONCE ONE Administration Hydromorphone HCl 1 mg 04/08/25 06:06 04/08/25 06:09 Hydromorphone 2mg/Ml Syringe IV 04/08/25 06:07 1 mg ONCE ONE Administration Hydromorphone HCl 0.5 mg 04/08/25 06:58 04/08/25 07:06 Hydromorphone 2mg/Ml Syringe IV 04/08/25 06:59 0.5 mg ONCE ONE Administration Iopamidol 75 ml 04/08/25 06:26 04/08/25 06:27 Iopamidol-370 (76%);100ml Bottle IV 04/08/25 06:27 75 ml ONCE ONE Administration Ketorolac Tromethamine 30 mg 04/08/25 05:46 04/08/25 05:53 Ketorolac 30mg/Ml Vial IV 04/08/25 05:47 30 mg ONCE ONE Administration Morphine Sulfate 4 mg 04/08/25 05:46 04/08/25 05:52 Morphine 4mg/Ml Syringe IV 04/08/25 05:47 4 mg ONCE ONE Administration Ondansetron HCl 4 mg 04/08/25 05:46 04/08/25 05:52 Ondansetron 4mg/2ml Vial IV 04/08/25 05:47 4 mg ONCE ONE Administration ORDERS Category Date Time Status CT abdomen pelvis w con Stat Cat Scan 04/08/25 06:11 Completed CBC w/Auto Diff [Complete Blood Count Auto Diff] Stat Lab 04/08/25 05:45 Completed CMP [Comprehensive Metabolic Panel] Stat Lab 04/08/25 05:45 Completed Urinalysis and Microscopic Stat Lab 04/08/25 05:33 Completed Urine , HCG Qual. Stat Lab 04/08/25 05:33 Completed Blood Culture Stat Micro 04/08/25 06:15 Received Urine Culture Stat Micro 04/08/25 05:33 Received Medical Decision Narrative: 39-year-old female with history of recently diagnosed kidney stone on the left, 2 mm and proximal 3 weeks, presents for worsening flank pain. She was diagnosed with a UTI and transferred to [place] initially, was discharged from [place] with Cipro. History was obtained via interactive discussion with patient, chart review. On arrival, patient is afebrile, and extremis secondary to pain,, moving all extremities spontaneously. Full physical exam performed and significant for left flank tenderness Differential includes but is not limited to persistent kidney stone, septic stone,. Patient was given morphine Dilaudid Zofran Tylenol Toradol for symptomatic management and correction of underlying abnormalities. Workup initiated including CBC CMP UA blood cultures CT abdomen pelvis. On re-evaluation, patient continues to have severe pain. Given additional Dilaudid. Laboratory workup independently interpreted by me and significant for minimal leukocytosis, normal renal function, no significant electrolyte derangement, urinalysis shows no WBCs, 50-100 squamous cells and 2+ bacteria with negative nitrates and innumerable RBCs. Her prior urinalysis showed WBCs and was positive for nitrates. Given this, it seems that her UTI is being appropriately treated given she is now nitrate negative and has no WBCs. 2+ bacteria is concerning, but in the setting of 50-100 squamous cells it may be a contaminant. Imaging independently interpreted by me and significant for 3 mm stone in the distal left ureter with mild to moderate hydroureter and hydronephrosis.. See radiology read for full review of final results. Given patient history, exam and workup, patient's presentation most likely represents persistent 3 mm left ureteral calculus that has now moved to the UVJ. At this time care handed off to oncoming physician. Will try to get her pain under control and consider transfer if we are unsuccessful. <Jim Sorto MD - Last Filed: 04/08/25 07:49> Vital Signs: 04/08/25 05:35 04/08/25 05:39 04/08/25 06:32 Temperature 98.7 F 98.7 F Temperature Source Oral Pulse Rate 57 L 62 Pulse Rate [Left] 57 L Respiratory Rate 18 18 17 Blood Pressure 136/67 116/66 Blood Pressure [Right Arm] 136/67 Blood Pressure Mean [Right Arm] 90 02 Sat by Pulse Oximetry 99 99 99 Oxygen Delivery Method Room Air Lab Data Lab Results 04/08/25 05:33: Urine Color Yellow, Urine Appearance Clear, Urine pH 5.5, Ur Specific [place] >= 1.030, Urine Protein Trace, Urine Glucose (UA) Negative, Urine Ketones Trace, Urine Blood 3+ A, Urine Nitrate Negative, Urine Bilirubin 1+ A, Urine Urobilinogen 1.0, Ur Leukocyte Esterase Negative, Urine RBC Tntc, Ur Squamous Epith Cells 50-100, Urine Bacteria 2+, Urine HCG, Qual Negative 04/08/25 05:45: WBC 11.0 H, RBC 4.73, Hgb 14.2, Hct 43.2, MCV 91.3, MCH 30.0, MCHC 32.9, RDW 12.2, Plt Count 259, MPV 9.8, Neut % (Auto) 73.0, Lymph % (Auto) 17.8, [place] % (Auto) 6.6, Eos % (Auto) 1.4, Baso % (Auto) 0.8, Neut # (Auto) 8.1 H, Lymph # (Auto) 2.0, [place] # (Auto) 0.7, Eos # (Auto) 0.2, Baso # (Auto) 0.1, Sodium 136, Potassium 3.7, Chloride 102, Carbon Dioxide 28, Anion Gap 9.7, BUN 11, Creatinine 0.70, Estimated Creat Clear 162, Estimated GFR 93, Est GFR ( Amer) 113, Glucose 126 H, Calcium 8.7, Total Bilirubin 0.6, AST 26, ALT 18, Alkaline Phosphatase 94, Total Protein 7.2, Albumin 4.1, Globulin 3.1, Albumin/Globulin Ratio 1.3 Orders (Tests/Meds): ED MEDICATIONS Generic Name Dose Route Start Last Admin Trade Name Freq PRN Reason Stop Dose Admin Lactated Ringer's 1,000 mls @ 999 mls/hr 04/08/25 07:01 04/08/25 07:05 Lactated Ringer's 1000 Ml Bag IV 04/08/25 08:01 999 mls/hr .Q1H1M ONE Administration Sodium Chloride 10 ml 04/08/25 06:26 04/08/25 06:27 Sodium Chloride 0.9% 10ml Syr (Rad Only) IV 05/08/25 06:25 10 ml NEEDED PRN Administration Maintain IV Site Discontinued Medications Generic Name Dose Route Start Last Admin Trade Name Price PRN Reason Stop Dose Admin Acetaminophen 1,000 mg 04/08/25 05:46 04/08/25 05:52 Acetaminophen 500mg Tab PO 04/08/25 05:47 1,000 mg ONCE ONE Administration Hydromorphone HCl 1 mg 04/08/25 06:06 04/08/25 06:09 Hydromorphone 2mg/Ml Syringe IV 04/08/25 06:07 1 mg ONCE ONE Administration Hydromorphone HCl 0.5 mg 04/08/25 06:58 04/08/25 07:06 Hydromorphone 2mg/Ml Syringe IV 04/08/25 06:59 0.5 mg ONCE ONE Administration Iopamidol 75 ml 04/08/25 06:26 04/08/25 06:27 Iopamidol-370 (76%);100ml Bottle IV 04/08/25 06:27 75 ml ONCE ONE Administration Ketorolac Tromethamine 30 mg 04/08/25 05:46 04/08/25 05:53 Ketorolac 30mg/Ml Vial IV 04/08/25 05:47 30 mg ONCE ONE Administration Morphine Sulfate 4 mg 04/08/25 05:46 04/08/25 05:52 Morphine 4mg/Ml Syringe IV 04/08/25 05:47 4 mg ONCE ONE Administration Ondansetron HCl 4 mg 04/08/25 05:46 04/08/25 05:52 Ondansetron 4mg/2ml Vial IV 04/08/25 05:47 4 mg ONCE ONE Administration ORDERS Category Date Time Status CT abdomen pelvis w con Stat Cat Scan 04/08/25 06:11 Completed CBC w/Auto Diff [Complete Blood Count Auto Diff] Stat Lab 04/08/25 05:45 Completed CMP [Comprehensive Metabolic Panel] Stat Lab 04/08/25 05:45 Completed Urinalysis and Microscopic Stat Lab 04/08/25 05:33 Completed Urine , HCG Qual. Stat Lab 04/08/25 05:33 Completed Blood Culture Stat Micro 04/08/25 06:15 Received Urine Culture Stat Micro 04/08/25 05:33 Received Medical Decision Narrative: 39-year-old female with history of recently diagnosed kidney stone on the left, 2 mm and proximal 3 weeks, presents for worsening flank pain. She was diagnosed with a UTI and transferred to [place] initially, was discharged from [place] with Cipro. History was obtained via interactive discussion with patient, chart review. On arrival, patient is afebrile, and extremis secondary to pain,, moving all extremities spontaneously. Full physical exam performed and significant for left flank tenderness Differential includes but is not limited to persistent kidney stone, septic stone,. Patient was given morphine Dilaudid Zofran Tylenol Toradol for symptomatic management and correction of underlying abnormalities. Workup initiated including CBC CMP UA blood cultures CT abdomen pelvis. On re-evaluation, patient continues to have severe pain. Given additional Dilaudid. Laboratory workup independently interpreted by me and significant for minimal leukocytosis, normal renal function, no significant electrolyte derangement, urinalysis shows no WBCs, 50-100 squamous cells and 2+ bacteria with negative nitrates and innumerable RBCs. Her prior urinalysis showed WBCs and was positive for nitrates. Given this, it seems that her UTI is being appropriately treated given she is now nitrate negative and has no WBCs. 2+ bacteria is concerning, but in the setting of 50-100 squamous cells it may be a contaminant. Imaging independently interpreted by me and significant for 3 mm stone in the distal left ureter with mild to moderate hydroureter and hydronephrosis.. See radiology read for full review of final results. Given patient history, exam and workup, patient's presentation most likely represents persistent 3 mm left ureteral calculus that has now moved to the UVJ. At this time care handed off to oncoming physician. Will try to get her pain under control and consider transfer if we are unsuccessful. Jim Sorto MD At the time my assumption of care, plan was to reassess for pain control and consider transfer to [place] if unsuccessful. Ultimately, patient still stated that her pain was present and had not improved much. I did offer transfer to [place] for continued pain management as well as IV lidocaine for renal colic, however, she would like to go home to try to pass the stone on her own. she states that she has only been taking ibuprofen 600 mg for pain. Given the small size of the stone and no evidence of worsening infection on today's workup, I do feel that this is appropriate as the stone should pass on its own. Will prescribe course of oxycodone as well as Zofran and lidocaine patches to aid in patient's symptoms. Also recommended continuing Tylenol and taking 800 mg ibuprofen every 6 hours as needed and to follow-up closely with her urologist. Strict return precautions were given for any worsening pain, fever or worsening symptoms. All questions were answered. She demonstrated understanding and was in agreement with this plan. She was then discharged from the emergency department in stable condition. Procedures <Saurabh Moreno MD - Last Filed: 04/08/25 07:04> Risk/Benefits of Procedure(s) Were Explained: Yes Critical Care <Saurabh Moreno MD - Last Filed: 04/08/25 07:04> Critical Care Time Critical Care Time: No
[2025-04-08] MEDS: MORPHINE 4MG/ML SYRINGE 4 MG IV (05:52)
[2025-04-08] MEDS: ACETAMINOPHEN 500MG TAB 1000 MG PO (05:52)
[2025-04-08] MEDS: ONDANSETRON 4MG/2ML VIAL 4 MG IV (05:52)
[2025-04-08] MEDS: KETOROLAC 30MG/ML VIAL 30 MG IV (05:53)
[2025-04-08 05:57] LABS: Hematocrit 43.2 % (37.0-47.0); Hemoglobin 14.2 g/dL (12.2-16.2); Immature Granulocytes % 0.4 %; Mean Corpuscular HGB Conc 32.9 g/dL (31.8-35.4); Mean Corpuscular Hemoglobin 30.0 pg (27.0-31.2); Mean Corpuscular Volume 91.3 fl (81-99); Nucleated Red Blood Cells % 0 %; Platelet Count 259 K/mm3 (142-424); Red Blood Count 4.73 M/mm3 (4.20-5.40); Red Cell Distribution Width-SD 40.9 fL; White Blood Count 11.0 K/mm3 (4.8-10.8)
[2025-04-08 06:00] LABS: Albumin Level 4.1 g/dl (3.5-5.0); Chloride 102 mmol/L (98-107); Potassium 3.7 mmoL/L (3.5-5.1); Sodium 136 mmol/L (136-145)
[2025-04-08 06:01] LABS: Color,Urine YELLOW (Yellow); Glucose,Urine (UA) Negative (Negative); Ketones,Urine TRACE (Negative); Leukocyte Esterase,Urine Negative (Negative); PH,Urine 5.5 (5.0-8.5); Protein,Urine TRACE (Negative); Specific Gravity, Urine >= 1.030 (1.005-1.030); Urobilinogen,Urine 1.0 EU/dl (0.2)
[2025-04-08 06:03] LABS: Alanine Aminotransferase 18 U/L (12-78); Albumin/Globulin Ratio 1.3 (1.1-1.8); Alkaline Phosphatase 94 U/L (38-126); Anion Gap 9.7 mEq/L (5-15); Aspartate Amino Transferase 26 U/L (14-36); Bilirubin,Total 0.6 mg/dl (0.2-1.3); Blood Urea Nitrogen 11 mg/dl (7-17); Carbon Dioxide 28 mmol/L (22.0-30.0); Creatinine Clearance Estimated 162 mL/min (50-200); Creatinine,Serum 0.70 mg/dl (0.52-1.04); Estimated Glomerular Filt Rate 93 ml/min (>60); GFR (African American) 113 ML/MIN (>60); Globulin 3.1 g/dL (1.3-3.2); Total Protein,Serum 7.2 g/dl (6.3-8.2)
[2025-04-08 06:04] LABS: Calcium 8.7 mg/dl (8.4-10.2); Glucose 126 mg/dl (74-100)
[2025-04-08 06:07] LABS: Urine Pregnancy, HCG Qual. Negative (Negative)
[2025-04-08 06:08] LABS: Bilirubin,Urine 1+ (Negative)
[2025-04-08] MEDS: HYDROMORPHONE 2MG/ML SYRINGE 1 MG IV (06:09)
--- NOTE | 2025-04-08 06:11 | CT_ITS ---
PROCEDURE INFORMATION: Exam: CT Abdomen And Pelvis With Contrast Exam date and time: 04/08/2025 6:28 AM Age: 39 years old Clinical indication: Abdominal pain; Additional info: Worsening left flank pain, has stone/uti TECHNIQUE: Imaging protocol: Computed tomography of the abdomen and pelvis with contrast. Radiation optimization: All CT scans at this facility use at least one of these dose optimization techniques: automated exposure control; mA and/or kV adjustment per patient size (includes targeted exams where dose is matched to clinical indication); or iterative reconstruction. Contrast material: ISOVUE; Contrast volume: 75 ml; Contrast route: IV; COMPARISON: CT ABDOMEN PELVIS W CON 03/17/2025 12:17 PM FINDINGS: Liver: Normal. No mass. Gallbladder and biliary ducts: Normal. No calcified stones. No ductal dilation. Pancreas: Normal. No ductal dilation. Spleen: Normal. No splenomegaly. Adrenal glands: Normal. No mass. Kidneys and ureters: 3 mm stone in the distal left ureter with mild to moderate left-sided hydroureter and hydronephrosis. No additional stones are identified. Stomach and bowel: Unremarkable. No obstruction. No mucosal thickening. Appendix: No evidence of appendicitis. Intraperitoneal space: Unremarkable. No free air. No significant fluid collection. Vasculature: Unremarkable. No abdominal aortic aneurysm. Lymph nodes: Unremarkable. No enlarged lymph nodes. Urinary bladder: Unremarkable as visualized. Reproductive: Unremarkable as visualized. Bones/joints: Unremarkable. No acute fracture. Soft tissues: Unremarkable. IMPRESSION: 3 mm stone in the distal left ureter with mild to moderate left-sided hydroureter and hydronephrosis. No additional stones are identified.
[2025-04-08 06:24] LABS: Bacteria,Urine 2+ /lpf; RBC,Urine TNTC #/hpf (0-3); Squamous Epithelial Cell,Urine 50-100 #/hpf (0-5)
[2025-04-08] MEDS: IOPAMIDOL-370 (76%);100ML BOTTLE 75 ML IV (06:27)
[2025-04-08] MEDS: SODIUM CHLORIDE 0.9% 10ML SYR (RAD ONLY) 10 ML IV (06:27)
[2025-04-08 06:32] VITALS: BP 116/66; PULSE 62; RESP 17; O2SAT 99
[2025-04-08] MEDS: LACTATED RINGERS 1000ML 1,000 ML 999 ML IV (07:05)
[2025-04-08] MEDS: HYDROMORPHONE 2MG/ML SYRINGE 0.5 MG IV (07:06)
--- NOTE | 2025-04-08 07:34 | PC.NURSE ---
DR MORALES AT BEDSIDE TO REEVALUATE PT
[2025-04-08 08:04] VITALS: BP 110/82; PULSE 61; RESP 20; TEMP 36.8; O2SAT 97
== END 2025-04-08 08:05 | disposition home or self-care (01) ==
PROVIDERS: Emergency Provider Emergency Medicine
DX: N13.0 Hydronephrosis with ureteropelvic junction obstruction (principal); N13.4 Hydroureter; R10.A2 Flank pain, left side
CPT/HCPCS: 74177; 80053; 81001; 81025; 85025; 87040; 87086; 96361; 96374; 96375; 96376; 99284; 99285; J1171; J1885; J2270; J2405; J7120; Q9967